=== PATIENT | male | born 1935 | race Caucasian/White ===

== ENCOUNTER 2017-12-10 12:26 | Emergency (ER) | payer MEDICARE, OTHER, SELFPAY ==
[2017-12-10 12:27] VITALS: BP 147/85; PULSE 76; RESP 16; TEMP 37.3; O2SAT 98; BMI 29.0
--- NOTE | 2017-12-10 12:42 | CT_ITS ---
STUDY: CT ABDOMEN AND PELVIS WITHOUT CONTRAST REASON FOR EXAM: Male, 82 years old. Abdominal wall hematoma/bruising. Right upper abdominal and right flank pain. Patient is on Coumadin. RADIATION DOSAGE (If Supplied By Facility): CTDIvol = ( 13.02 ) mGy, DLP = ( 725.19 ) mGycm TECHNIQUE: Transaxial images were obtained from the dome of the diaphragm to the symphysis pubis without oral contrast, and without intravenous contrast. Sagittal and coronal images were reconstructed. Individualized dose optimization techniques were used for this CT. COMPARISON: Comparison is made with prior study dated August 09, 2012. FINDINGS: Small bilateral pleural effusions. There is a stable 5.5 mm noncalcified nodule in the right lower lobe abutting the right hemidiaphragm. This most likely represents a granuloma. Cardiomegaly. Coronary artery calcification. Aortic valve prosthesis. Normal liver. Small gallstone along the dependent portion of the gallbladder lumen. There are multiple benign calcified granulomata of the spleen. Normal pancreas. Normal bilateral adrenal glands. Normal right kidney. Normal left kidney. Normal visualized stomach. Normal small intestine. There are multiple colonic diverticula consistent with diverticulosis. The appendix is visualized and appears normal. There is diffuse atherosclerotic calcification of the abdominal aorta and its major visceral branches. Stable minimal dilatation of the distal abdominal aorta. 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 Normal inferior vena cava. Normal retroperitoneum. The bladder is only partially filled. Mild degree of diffuse bladder wall thickening. There is enlargement of the prostate gland. It measures 4.7 cm x 5.2 cm. Calcifications are seen within it. There is evidence of diffuse subcutaneous congestion with overlying skin thickening. This may represent subcutaneous collection of blood with the patient's history of bruising. There are degenerative changes of the visualized lumbar spine. CT/Abdomen/Pelvis without Cont IMPRESSION: Small bilateral pleural effusions. Diffuse subcutaneous edematous changes as described. With the patient's history of abdominal wall bruising, this may represent subcutaneous blood pooling. Clinical correlation is recommended. Electronically Signed: Segundo Galvan MD at 13:42 EST Tel [phone], Service support ,
[2017-12-10 13:01] LABS: Absolute Lymphocyte Count 0.94 X10^3/ul (0.83-4.51); Absolute Neutrophil Count 4.4 X10^3/uL (2.0-7.7); Basophil# 0.02 X10^3/uL; Basophil% 0.3 % (0-1); Eosinophil# 0.18 X10^3/uL; Eosinophils% 2.9 % (0-5); Hematocrit 33.7 % (40-54); Hemoglobin 11.1 g/dl (13.0-16.5); Lymphocyte # 0.94 X10^3/ul (4.0); Lymphocyte % 15.3 % (19-41); Mean Corp Hgb Conc 32.9 g/gl (32-36); Mean Corpuscular Hgb 29.7 pg (27.0-32.0); Mean Corpuscular Volume 90.1 fL (80-94); Mean Platelet Vol. 9.1 fl (6.2-12.0); Monocyte# 0.64 X10^3/uL; Monocyte% 10.4 % (0-10); Neutrophil # 4.35 X10^3/uL (2.7-7.7); Neutrophil % 70.6 % (47-70); POSITIVE COUNT NO; POSITIVE DIFFERENTIAL NO; POSITIVE MORPHOLOGY NO; Platelet Count 215 K/mm3 (150-450); RBC Distribution Width CV 14.9 % (11.6-14.6); RBC Distribution Width SD 48.5 fl (35.1-43.9); Red Blood Count 3.74 M/mm3 (4.6-6.2); White Blood Count 6.2 K/mm3 (4.4-11.0)
[2017-12-10 13:11] LABS: International Normalized Ratio 2.5; Prothrombin Time (Protime)PT. 26.3 SECONDS (11.7-14.9)
[2017-12-10 13:14] LABS: Anion Gap 4 (5-15); BUN 11 mg/dL (7-18); Calcium,Total 7.7 mg/dL (8.5-10.1); Chloride 100 mmol/L (98-107); Creatinine, Serum 0.65 mg/dL (0.70-1.30); EST Glomerular Filtration Rate 126 mL/min (>60); Est Glom Filt Rate - Afr Amer 153 mL/min (>60); Estimated Creatinine Clearance 56.05 ml/min; Glucose 92 mg/dL (74-106); Potassium 4.5 mmol/L (3.5-5.1); Sodium Level 133 mmol/L (136-145)
--- NOTE | 2017-12-10 15:23 | ED.VISSUMM ---
- ER Visit Summary Date of Service: 12/10/17 Chief Complaint: [Discoloration to abdomen] History of Present Illness: The patient is a 82 M [resents to the emergency department with complaint of ecchymosis and bruising to his abdomen. Patient states that he is on Coumadin for history of an aortic artificial heart valve. Patient states last week his INR was elevate] to 3.7 and his Coumadin dose was decreased to 5 mg. Patient denies any abdominal pain. Patient denies feeling lightheaded or dizzy. Physical Examination: [HEENT-PERRLA, EOMI. Cranial nerves II through XII grossly intact. TMs clear. Mucous membranes moist. No adenopathy. Cardiovascular-regular rate and rhythm without murmur or ectopy Lungs-clear to auscultation, chest wall stable without crepitus or subcu emphysema Abdomen-normoactive bowel sounds, soft, nontender, no rebound or rigidity, no peritoneal signs. Patient has diffuse ecchymosis and bruising noted to the anterior abdomen into the right flank and right upper posterior chest. Extremities-intact ?4, normal range of motion, normal pulses, atraumatic] Test Results: [CBC with differential showed a white count of 6.2, hemoglobin 11, hematocrit 34, platelets 215. Chemistries were unremarkable. INR was 2.5. CT scan of the abdomen and pelvis showed skin thickening in the subcutaneous region of the abdomen consistent with blood within the subcutaneous tissues. No discrete hematoma noted.] Emergency Department Course and Treatment: [Patient had a cyst discussed with his primary care physician Dr. Polo Mitchell will follow up patient in the office next week.] Treatment Plan: [Follow-up with Dr. Mitchell for repeat H&H and INR.] Disposition: [Discharged to home in stable condition] Impression: [Abdominal wall hematoma Coumadin coagulopathy] This note was generated with [employer] dictation software. It may contain incorrect words, spelling, and punctuation that were not noted in review of the chart prior to signing ED Disposition - Plan for ED Patient: Chief Complaint: Abd Pain Referrals: Polo Mitchell MD [Primary Care Provider] -
--- NOTE | 2017-12-10 15:27 | ED.DCSUM_ITS ---
- ER Visit Summary Date of Service: 12/10/17 Chief Complaint: [Discoloration to abdomen] History of Present Illness: The patient is a 82 M [resents to the emergency department with complaint of ecchymosis and bruising to his abdomen. Patient states that he is on Coumadin for history of an aortic artificial heart valve. Patient states last week his INR was elevate] to 3.7 and his Coumadin dose was decreased to 5 mg. Patient denies any abdominal pain. Patient denies feeling lightheaded or dizzy. Physical Examination: [HEENT-PERRLA, EOMI. Cranial nerves II through XII grossly intact. TMs clear. Mucous membranes moist. No adenopathy. Cardiovascular-regular rate and rhythm without murmur or ectopy Lungs-clear to auscultation, chest wall stable without crepitus or subcu emphysema Abdomen-normoactive bowel sounds, soft, nontender, no rebound or rigidity, no peritoneal signs. Patient has diffuse ecchymosis and bruising noted to the anterior abdomen into the right flank and right upper posterior chest. Extremities-intact ?4, normal range of motion, normal pulses, atraumatic] Test Results: [CBC with differential showed a white count of 6.2, hemoglobin 11 , hematocrit 34, platelets 215. Chemistries were unremarkable. INR was 2.5. CT scan of the abdomen and pelvis showed skin thickening in the subcutaneous region of the abdomen consistent with blood within the subcutaneous tissues. No discrete hematoma noted.] Emergency Department Course and Treatment: [Patient had a cyst discussed with his primary care physician Dr. Polo Mitchell will follow up patient in the office next week.] Treatment Plan: [Follow-up with Dr. Mitchell for repeat H&H and INR.] Disposition: [Discharged to home in stable condition] Impression: [Abdominal wall hematoma Coumadin coagulopathy] This note was generated with [employer] dictation software. It may contain incorrect words, spelling, and punctuation that were not noted in review of the chart prior to signing ED Disposition - Plan for ED Patient: Chief Complaint: Abd Pain Referrals: Polo Mitchell MD [Primary Care Provider] -
--- NOTE | 2017-12-10 15:27 | ED.DEP ---
ED Disposition - Plan for ED Patient: Chief Complaint: Abd Pain Instructions: ED Hematoma Referrals: Polo Mitchell MD [Primary Care Provider] - 3-5 Days
[2017-12-10 15:33] VITALS: BP 127/82; PULSE 61; RESP 15; O2SAT 98
== END 2017-12-10 15:34 | disposition home or self-care (01) ==
PROVIDERS: Emergency Provider Emergency Medicine; Family Provider Internal Medicine; PCP Internal Medicine
DX: R23.3 Spontaneous ecchymoses (principal); T45.515A Adverse effect of anticoagulants, initial encounter; Y92.9 Unspecified place or not applicable; I25.10 Atherosclerotic heart disease of native coronary artery without angina pectoris; I10 Essential (primary) hypertension; Z95.2 Presence of prosthetic heart valve; Z95.1 Presence of aortocoronary bypass graft; Z79.82 Long term (current) use of aspirin; Z79.01 Long term (current) use of anticoagulants; Z79.02 Long term (current) use of antithrombotics/antiplatelets; Z79.899 Other long term (current) drug therapy
CPT/HCPCS: 74176; 80048; 85025; 85610; 99283; A4216

== ENCOUNTER 2017-12-24 16:03 | Inpatient (IN) | payer MEDICARE, OTHER, SELFPAY ==
[2017-12-24] VITALS (13 sets, daily range): BP systolic 105–159; BP diastolic 69–87; PULSE 71–118; RESP 20–24; TEMP 35.8–36.6; O2SAT 93–100; BMI 27.3; BMI 27.4; BMI 28.4
--- NOTE | 2017-12-24 16:40 | EKG12_ITS ---
Test Reason : SOB Blood Pressure : / mmHG Vent. Rate : 082 BPM Atrial Rate : 340 BPM P-R Int : 000 ms QRS Dur : 118 ms QT Int : 398 ms P-R-T Axes : 000 -33 120 degrees QTc Int : 464 ms Atrial fibrillation Left axis deviation Abnormal ECG Confirmed by REID RAMEY ([id number]), commercial production editor DAMEON RIVERO ([id number]) on 12/28/2017 1:36:51 PM Referred By: GEOVANNI Confirmed By:REID RAMEY
--- NOTE | 2017-12-24 16:48 | RAD_ITS ---
STUDY: X-RAY CHEST REASON FOR EXAM: Male, 82 years old. Cough. Shortness of breath. TECHNIQUE: Single AP portable view of the chest. COMPARISON: January 29, 2016 FINDINGS: There are monitoring devices. There is interstitial accentuation of the lungs. Right lower lung airspace opacities. Small bilateral pleural effusions. There are granulomatous calcifications. Sternal cerclage wires are present from a prior sternotomy. Aortic valve prosthesis. Cardiac enlargement. Normal mediastinum and tian. Normal visualized pulmonary arteries. There is atherosclerotic calcification of the aortic arch with tortuosity. There is demineralization of the osseous structures. Normal visualized ribs, clavicles, and shoulders. There is no demonstrated abnormality of the visualized soft tissue structures of the upper abdomen. RAD/Chest 1 View (Portable) IMPRESSION: Right lower lung infiltrate or edema. Bilateral pleural effusions. Cardiac enlargement. Electronically Signed: Yonis Dejesus MD at 17:23 EST , Service support ,
--- NOTE | 2017-12-24 17:11 | ED.DCSUM_ITS ---
- ER Visit Summary Date of Service: 12/24/17 Chief Complaint: Wheezing History of Present Illness: The patient is a 82 M with wheezing which has been worsening over the past month. He was referred to the emergency department for possible CHF exacerbation. He has a history of coronary disease, [place], CHF, asthma, hypertension, hyperlipidemia, and atrial fibrillation. He said his INR has been elevated. He did pass a clot in his urine but it has cleared. He has also had bruising to his abdominal wall for the past several weeks. He says that he has no abdominal pain or blood in his stool. No headaches. No joint pains that are new. Physical Examination: Afebrile and vital signs unremarkable except for a blood pressure of 159/72 and a heart rate of 118. The patient is sitting upright. Breathing quietly. HEENT exam unremarkable. Lungs show wheezing throughout all lynch. Abdomen soft and nontender. He does have ecchymosis over most of his anterior abdominal wall. Extremities show symmetric bilateral pitting edema. He is alert and oriented and mentating appropriately. Test Results: EKG on the labs, chest x-ray, urinalysis pending. Emergency Department Course and Treatment: Patient was treated with oxygen and aerosols while awaiting results. EKG showed atrial fibrillation a rate of 82. Hemoglobin 10.1. Sodium 130, chloride 97, INR 3.5. Urinalysis pending. BNP pending. Troponin normal. Chest x-ray showed edema versus infiltrate on the right with bilateral effusions and an enlarged cardiac silhouette. Patient received oxygen, aerosols, Solu-Medrol, and Lasix while awaiting his results. Patient has remained stable. Will need continued inpatient care for his multiple medical issues. Hospitalist was contacted. Treatment Plan: As above Disposition: Admission Impression: 1. CHF 2. Elevated INR This note was generated with [employer] dictation software. It may contain incorrect words, spelling, and punctuation that were not noted in review of the chart prior to signing ED Disposition - Plan for ED Patient: Chief Complaint: Shortness of Breath Referrals: Polo Mitchell MD [Primary Care Provider] -
[2017-12-24 17:14] LABS: Prothrombin Time (Protime)PT. 35.2 SECONDS (11.7-14.9)
[2017-12-24] MEDS: Albuterol 2.5 MG/3 ML VIAL.NEB. INHALATION ×3 (17:18→18:16)
[2017-12-24] MEDS: Ipratropium/Albuterol Sulfate 3 ML AMPUL.NEB INHALATION (17:18)
[2017-12-24 17:22] LABS: Absolute Lymphocyte Count 0.54 X10^3/ul (0.83-4.51); Absolute Neutrophil Count 4.8 X10^3/uL (2.0-7.7); Basophil# 0.01 X10^3/uL; Basophil% 0.2 % (0-1); Eosinophil# 0.42 X10^3/uL; Eosinophils% 6.6 % (0-5); Hematocrit 30.6 % (40-54); Hemoglobin 10.1 g/dl (13.0-16.5); Lymphocyte # 0.54 X10^3/ul (4.0); Lymphocyte % 8.5 % (19-41); Mean Corpuscular Hgb 29.3 pg (27.0-32.0); Mean Corpuscular Volume 88.7 fL (80-94); Mean Platelet Vol. 9.1 fl (6.2-12.0); Monocyte# 0.58 X10^3/uL; Monocyte% 9.1 % (0-10); Neutrophil # 4.77 X10^3/uL (2.7-7.7); Neutrophil % 75.3 % (47-70); Platelet Count 264 K/mm3 (150-450); RBC Distribution Width CV 14.8 % (11.6-14.6); RBC Distribution Width SD 48.3 fl (35.1-43.9); Red Blood Count 3.45 M/mm3 (4.6-6.2); White Blood Count 6.3 K/mm3 (4.4-11.0)
[2017-12-24 17:23] LABS: Anion Gap 4 (5-15); BUN 9 mg/dL (7-18); BUN/Creat Ratio 15.5 RATIO (10-20); Calcium,Total 7.6 mg/dL (8.5-10.1); Chloride 97 mmol/L (98-107); Creatinine, Serum 0.58 mg/dL (0.70-1.30); EST Glomerular Filtration Rate 143 mL/min (>60); Est Glom Filt Rate - Afr Amer 173 mL/min (>60); Estimated Creatinine Clearance 56.05 ml/min; Glucose 99 mg/dL (74-106); Potassium 4.9 mmol/L (3.5-5.1); Sodium Level 130 mmol/L (136-145)
[2017-12-24 17:37] LABS: International Normalized Ratio 3.5
[2017-12-24 17:39] LABS: Differential Indicated SCAN CRITERIA MET; POSITIVE COUNT NO; POSITIVE DIFFERENTIAL YES; POSITIVE MORPHOLOGY NO
[2017-12-24 17:48] LABS: Bacteria 0 SEEN /hpf (None Seen); Mucous, Urine 0 SEEN /hpf (<or=2+); Squamous Epithelial Cells - UA 0 SEEN /hpf (0-5); White Blood Cells 0 SEEN /hpf (0-5)
[2017-12-24 17:55] LABS: Anisocytosis RARE; Platelet Estimate ADEQUATE (ADEQ)
[2017-12-24 17:56] LABS: Acanthocytes RARE; Ovalocyte RARE
[2017-12-24 18:05] LABS: Color, Urine Yellow (Yellow); Glucose, Dipstick Normal (Normal); Ketone-Dipstick Negative (Negative); Leukocyte Esterase-Dipstick Negative /ul (Negative); Nitrite-Dipstick Negative (Negative); Occult Blood-Urine 10 /ul (Negative); Protein-Dipstick Negative (Negative); Urine Bilirubin Dipstick Negative (Negative); Urine Clarity Clear (Clear); Urine Urobilinogen 4 mg/dl (Normal)
--- NOTE | 2017-12-24 18:10 | PCM.HP.STD ---
Problem List (1) CHF (congestive heart failure) Status: Acute (2) Afib Status: Chronic (3) Aortic stenosis Status: Chronic (4) Hyponatremia Status: Chronic (5) CAD (coronary artery disease) Status: Chronic (6) Pulmonary HTN Status: Chronic (7) Aortic aneurysm Status: Chronic History of Present Illness Date of Admission: 12/24/17 Chief Complaint: SOB The patient is a 82 year old M who presented to the ER with SOB for about a month but worse in the past several days. He has a hx of CHF, CAD s/p CABG, pulmonary HTN, aortic stenosis s/p TAVR, and chronic AF, and a questionable asthma hx. He has been wheezy at home with a nonproductive cough. He has swelling of his BLE, he does not think this is much worse than his normal. He was taken off HCTZ about 1 month ago and is on no other diuretics, and has not been urinating as much. He is SOB with both rest and exertion. Initially he was tachy in the ER but this resolved without additional intervention. He has no CP. He is currently on 2 lpm O2, he does not use any at home. He follows Dr. Olivares as an outpatient. He had an echo in 2016 prior to his TAVR procedure and an EF of 50% at that time. He states he does not have his aortic aneurysm checked routinely. He denies PND and orthopnea. He also reported a blood clot in his urine. Had an episode of nausea and vomiting in the ER. He denies trauma to his chest / abdomen. Bruising has been present for abotu 1 month. [] Past Medical History Past Medical History (Chronic Problems): Chronic Problems Afib (Chronic) Aortic stenosis (Chronic) Hyponatremia (Chronic) CAD (coronary artery disease) (Chronic) Pulmonary HTN (Chronic) Aortic aneurysm (Chronic) Allergies No Known Allergies Allergy (Verified 12/24/17 16:05) Home Medications: Ambulatory Orders Medication Instructions Recorded Doxazosin Mesylate [Cardura] 4 mg PO QHS 08/14/13 Metoprolol Tartrate [Lopressor] 50 mg PO BID 08/14/13 Atorvastatin Calcium [Lipitor] 20 mg PO QHS 10/21/15 Clopidogrel Bisulfate [Plavix] 75 mg PO DAILY 10/18/17 Aspirin [Aspirin, Baby] 81 mg PO DAILY@0800 12/10/17 Warfarin Sodium [Warfarin Sodium] 5 mg PO DAILY 12/24/17 Surgical History: coronary bypass surgery Psychiatric History: No pertinent psych hx Lives: Alone Smoking Status: Former smoker Tobacco Use: Non-smoker Alcohol: Rare Drugs: None - *Family History Maternal History Items: Cancer Paternal History Items: - - aortic aneurysm Review of Systems Constitutional: Denies: Chills, Fever, Weight Change HEENT: Denies: Head Aches, Sinus Congestion, Sinus Drainage Cardiovascular: Reports: Edema. Denies: Chest Pain, Chest Pressure, Heaviness, Light Headedness, Orthopnea, Palpitations, Paroxysmal Noc. Dyspnea, Syncope Respiratory: Reports: Cough, Shortness of Breath, Shortness of breath at rest, Shortness of breath upon exertion, Wheezing. Denies: Sputum production Gastrointestinal: Denies: Abdominal Pain, Nausea, Vomiting Genitourinary: Reports: Hematuria. Denies: Dysuria Musculoskeletal: Denies: Joint Pain, Joint Tenderness Skin: Reports: - - hematoma. Denies: Rash, Wounds Neurological: Denies: Numbness, Tingling, Focal weakness Psychiatric: Denies: Anxiety, Depression, Homicidal Ideations, Suicidal Ideations Hematologic/ Lymphatic: Denies: Easy Bruising, Easy Bleeding VTE Information - Inpt Only VTE Present on Admission: No VTE Mechan Device Prophylaxis: None VTE Pharm Prophylaxis ordered?: No Reason prophylaxis not ordered:: Medical Contraindication Patient Problems: Active and Suspected Problems CHF (congestive heart failure) (Acute) - Physical Exam General: Alert, Oriented x3, Cooperative HEENT: Atraumatic, PERRLA, EOMI, Normocephalic Neck: Supple, No JVD, Negative Carotid Bruits Lungs: Rales, Wheezes Cardiovascular: No murmurs, Irregular Rate Abdomen: Bowel Sounds Present, Soft, Non Tender, - Extremities: No edema, Capillary Refill Less than 3 Seconds Skin: No rashes, No breakdown, - - hematoma on chest extending to the abdomen. There is scarring from shingles on his back. Musculoskeletal: No Tenderness to Palpation of Joints or Extremities Neurological: Cranial nerves II-XII grossly intact Psych/Mental Status: Normal Affect, Appropriate, Alert and oriented to time, place, person, mood and affect Vital Signs Temp Pulse Resp BP Pulse Ox 97.2 F L 77 24 H 136/74 H 100 12/24/17 16:05 12/24/17 17:21 12/24/17 17:21 12/24/17 16:18 12/24/17 16:18 Oxygen Flow Rate (L/min) 2 Oxygen Delivery Method Nasal Cannula Weight: 81.647 kg Body Mass Index (BMI) 27.3 Laboratory Tests Past 24 Hrs 12/24/17 12/24/17 12/24/17 16:30 16:30 16:30 WBC 6.3 RBC 3.45 L Hgb 10.1 L Hct 30.6 L MCV 88.7 MCH 29.3 MCHC 33.0 RDW 14.8 H RDW Differential 48.3 H Plt Count 264 MPV 9.1 Immature Gran % (Auto) 0.300 Neut % (Auto) 75.3 H Lymph % (Auto) 8.5 L [place] % (Auto) 9.1 Eos % (Auto) 6.6 H Baso % (Auto) 0.2 Absolute Neuts (auto) 4.8 Absolute Lymphs (auto) 0.54 L Total Counted Not Reportable Differential Comment SEE COMMENT Platelet Estimate ADEQUATE Anisocytosis RARE Ovalocytes RARE Acanthocytes (Spur) RARE PT 35.2 H INR 3.5 H* Sodium 130 L Potassium 4.9 Chloride 97 L Carbon Dioxide 29.0 Anion Gap 4 L BUN 9 Creatinine 0.58 L Estim Creat Clear Calc 56.05 Est GFR (MDRD) Af Amer 173 Est GFR (MDRD) Non-Af 143 BUN/Creatinine Ratio 15.5 Glucose 99 Calcium 7.6 L Troponin I < 0.02 B-Natriuretic Peptide Urine Color Urine Clarity Urine pH Ur Specific [place] Urine Protein Urine Glucose (UA) Urine Ketones Urine Occult Blood Urine Nitrite Urine Bilirubin Urine Urobilinogen Ur Leukocyte Esterase Urine RBC Urine WBC Ur Squamous Epith Cells Urine Bacteria Urine Mucus 12/24/17 12/24/17 16:30 17:41 WBC RBC Hgb Hct MCV MCH MCHC RDW RDW Differential Plt Count MPV Immature Gran % (Auto) Neut % (Auto) Lymph % (Auto) [place] % (Auto) Eos % (Auto) Baso % (Auto) Absolute Neuts (auto) Absolute Lymphs (auto) Total Counted Differential Comment Platelet Estimate Anisocytosis Ovalocytes Acanthocytes (Spur) PT INR Sodium Potassium Chloride Carbon Dioxide Anion Gap BUN Creatinine Estim Creat Clear Calc Est GFR (MDRD) Af Amer Est GFR (MDRD) Non-Af BUN/Creatinine Ratio Glucose Calcium Troponin I B-Natriuretic Peptide Pending Urine Color Pending Urine Clarity Pending Urine pH Pending Ur Specific [place] Pending Urine Protein Pending Urine Glucose (UA) Pending Urine Ketones Pending Urine Occult Blood Pending Urine Nitrite Pending Urine Bilirubin Pending Urine Urobilinogen Pending Ur Leukocyte Esterase Pending Urine RBC Pending Urine WBC Pending Ur Squamous Epith Cells Pending Urine Bacteria Pending Urine Mucus Pending Assessment/Plan Active and Suspected Problems CHF (congestive heart failure) (Acute) 1. Acute diastolic CHF exacerbation - CXR c/w CHF, prior hx, more SOB since being off HCTZ. Crackles and wheezing on exam. Prior echo in 2016 with EF 50%. Repeat Echo. Pt will be placed on Lasix 40 q 8. Continue BB. Not currently on Sean-I. EKG with AF. Trop neg. Repeat CXR in AM. 2. Chronic AF - inr supratherapeutic at 3.5. Hold. Continue AF. 3. Anemia, normocytic with Hematuria with blood on UA - holding warfarin. It is unclear why he is on aspirin, plavix, and coumadin. Also atraumatic hematoma on the chest and abdomen. Trend Hgb. Former smoker. 4. CAD - hx of 4 vessel CABG. Continue home meds -asa/statin/plavix/metoprolol 5. - s/p tavr 6. Hx abdominal aortic aneurysm 7. HTN - mildly elevated in ER - trend 8. Prior CVA ~15 years ago 9. Former smoker - smoked 25 years. 10. Chronic hyponatremia - HCTZ dc'd for this by PCP. DVT ppx: supratherapeutic INR This patient was seen by Nik Westfall PA-C under the supervision of Dr. Avina.
[2017-12-24] MEDS: MethylPREDNISolone 125 MG/2 ML Vial IV (18:17)
[2017-12-24] MEDS: Furosemide 40 MG/4 ML Vial IV ×2 (18:17→22:00)
[2017-12-24 18:35] LABS: Red Blood Cells-Urine 0-5 SEEN /hpf (0-5)
[2017-12-24 18:58] LABS: BNP,B-Type NATRIURETIC PEPTIDE 488.9 pg/mL (0-100)
[2017-12-24] MEDS: Doxazosin 4 MG Tablet PO (22:00)
[2017-12-24] MEDS: Atorvastatin Calcium 20 MG Tablet PO (22:00)
[2017-12-24] MEDS: Metoprolol Tartrate 50 MG Tablet PO (22:00)
[2017-12-24] MEDS: 0.9% NaCl Peripheral Flush Adult/Peds IV (22:08)
[2017-12-25] VITALS (17 sets, daily range): BP systolic 79–101; BP diastolic 42–64; PULSE 62–85; RESP 18–22; TEMP 35.9–36.9; O2SAT 94–99
[2017-12-25] MEDS: 0.9% NaCl Peripheral Flush Adult/Peds IV ×2 (05:45→17:42)
[2017-12-25] MEDS: Furosemide 40 MG/4 ML Vial IV (05:45)
[2017-12-25 05:55] LABS: BUN 9 mg/dL (7-18); EST Glomerular Filtration Rate 137 mL/min (>60); Estimated Creatinine Clearance 56.05 ml/min; Glucose 143 mg/dL (74-106)
--- NOTE | 2017-12-25 05:55 | ECHOD_ITS ---
Reason For Study: AFIB/Flutter Procedure This was a 2D Doppler, Color Flow transthoracic echocardiogram. The study was technically difficult. Exam performed portable in patient room. Left Ventricle Normal LV size. Left ventricular systolic function is normal. The estimated ejection fraction is 55 %. Unable to assess diastolic dysfunction. No regional wall motion abnormalities noted. Right Ventricle Normal RV size. Normal systolic function. Atria The left atrium is severely enlarged. The right atrium is moderately enlarged. Probable chiari network. Mitral Valve Normal mitral valve. Mild (1+) eccentric mitral valve insufficiency. Tricuspid Valve Normal tricuspid valve. Mild to moderate (1-2+) tricuspid valve insufficiency. Pulmonary artery systolic pressure is 43 mmHg. Aortic Valve Stable appearing bioprosthetic aortic valve apparatus. Pulmonic Valve Normal pulmonic valve. Mild (1+) pulmonic valve insufficiency. Great Vessels Normal aortic root. The pulmonary artery is normal size. Normal inferior vena cava. Pericardium/Pleural No pericardial effusion. MMode/2D Measurements & Calculations LVIDd: 5.0 cm IVSd: 1.6 cm Ao root diam: 2.4 cm LVIDs: 3.7 cm LVPWd: 0.76 cm FS: 25.5 % LAV(MOD-bp): 140.9 ml LA A4 area: 37.5 cm2 RA A4 area: 29.2 cm2 LAV(MOD-bp) Indexed: 71.1 ml/m2 LAV(MOD-sp2): 132.9 ml LAV(MOD-sp4): 140.0 ml Doppler Measurements & Calculations MV E max jason: 109.3 cm/sec Lat Peak E' Jason: 10.5 cm/sec Med Peak E' Jason: 5.7 cm/sec E/E' lat: 10.4 E/E' med: 19.2 Ao V2 max: 169.2 cm/sec LV V1 max: 98.4 cm/sec PA V2 max: 107.7 cm/sec Ao max P.5 mmHg LV V1 max P.9 mmHg Ao V2 mean: 114.7 cm/sec LV V1 mean P.9 mmHg Ao mean P.8 mmHg LV V1 mean: 65.1 cm/sec Ao V2 VTI: 34.7 cm LV V1 VTI: 20.3 cm PI end-d jason: 109.8 cm/sec TR max jason: 311.0 cm/sec TR max P.8 mmHg Interpretation Summary Normal LV size. Left ventricular systolic function is normal. The estimated ejection fraction is 55 %. Unable to assess diastolic dysfunction. Mild to moderate (1-2+) tricuspid valve insufficiency. Stable appearing bioprosthetic aortic valve apparatus. Compared to the previous the WMA has improved and ther is a bioprothetic aortic valve Ordering Physician: Lionel Avina Referring Physician: Polo Mitchell Performed By: Negin Bryan RDCS, RVT
[2017-12-25 05:56] LABS: Anion Gap 6 (5-15); Calcium,Total 7.7 mg/dL (8.5-10.1); Chloride 94 mmol/L (98-107); Est Glom Filt Rate - Afr Amer 165 mL/min (>60); Sodium Level 129 mmol/L (136-145)
[2017-12-25 06:00] LABS: International Normalized Ratio 2.9; Prothrombin Time (Protime)PT. 30.6 SECONDS (11.7-14.9)
[2017-12-25] MEDS: Clopidogrel Bisulfate 75 MG Tablet PO (08:36)
[2017-12-25] MEDS: Aspirin 81 MG TAB.CHEW PO (08:36)
--- NOTE | 2017-12-25 11:09 | CASEMGMT ---
Addendum entered by Andrea Bolton 12/25/17 12:19: [facility], signed [facility]. [facility] updated that [facility]. Will not notify [place] of pt admission as pt does not wish to transfer. Recommend DC summary be faxed to his PCP, [facility]. Original Note: See RN CM assessment. Pt states he is independent @ home, drives. Will continue to follow and assist with dc planning. -May benefit from Home health on dc. Nguyễn MARTÍNEZN RN ACM
--- NOTE | 2017-12-25 16:08 | PCM.PN.HOSP ---
Patient Problems: Active and Suspected Problems CHF (congestive heart failure) (Acute) Subjective: CC: Shortness of breath This is an an 82-year-old male with shortness of breath, his CXR is consistent with congestive heart failure, he was placed on IV Lasix and he improved but he is now hypotensive. He reports no cough, fever chills or chest pain. Vitals/I&O's: Vital Signs Temp Pulse Resp BP Pulse Ox 98.2 F 78 20 H 97/48 L 97 12/25/17 14:17 12/25/17 15:05 12/25/17 14:17 12/25/17 14:17 12/25/17 14:17 Oxygen Flow Rate (L/min) 3 Oxygen Delivery Method Nasal Cannula Weight: 82 kg Body Mass Index (BMI) 28.4 Intake and Output for Last 24 Hours 12/23/17 12/24/17 12/25/17 23:59 23:59 23:59 Intake Total 100 / 100 400 / 400 Output Total 2300 / 2300 1750 / 1750 Balance -2200 / -2200 -1350 / -1350 General: Alert, Oriented x3 HEENT: Atraumatic Oral: Moist Mucosa Neck: Supple, No JVD Lungs: Clear to auscultation Cardiovascular: Regular rate, Normal S1, Normal S2, No Ectopic Activity Abdomen: Bowel Sounds Present, Soft Extremities: No edema Neurological: Cranial nerves II-XII grossly intact, Deep Tendon Reflexes 2+/4 and Symmetrical, Motor Exam 5/5 strength throughout Laboratory Results 12/25/17 05:08: Sodium 129 L, Potassium 5.0, Chloride 94 L, Carbon Dioxide 29.0, Anion Gap 6, BUN 9, Creatinine 0.60 L, Estim Creat Clear Calc 56.05, Est GFR (MDRD) Af Amer 165, Est GFR (MDRD) Non-Af 137, BUN/Creatinine Ratio 15.0, Glucose 143 H, Calcium 7.7 L 12/25/17 05:08: PT 30.6 H, INR 2.9 Current Medications Acetaminophen (Tylenol) 650 mg PO Q6H PRN PRN PRN Reason: Mild Pain (1-3)/Temp > 100.7 F Aspirin (Aspirin, Baby) 81 mg PO DAILY@0800 ANGELO Last Admin: 12/25/17 08:36 Dose: 81 mg Atorvastatin Calcium (Lipitor) 20 mg PO QHS [facility] Last Admin: 12/24/17 22:00 Dose: 20 mg Clopidogrel Bisulfate (Plavix) 75 mg PO DAILY [facility] Last Admin: 12/25/17 08:36 Dose: 75 mg Doxazosin Mesylate (Cardura) 4 mg PO QHS [facility] Last Admin: 12/24/17 22:00 Dose: 4 mg Furosemide (Lasix) 40 mg IV Q8 [facility] Last Admin: 12/25/17 14:26 Dose: Not Given Metoprolol Tartrate (Lopressor (Beta Elslie)) 50 mg PO BID [facility] Last Admin: 12/25/17 11:55 Dose: Not Given Ondansetron HCl (Zofran) 4 mg IV Q6H PRN PRN PRN Reason: NAUSEA/VOMITING Potassium Chloride (K-Dur) 20 meq PO BIDCM [facility] Last Admin: 12/25/17 08:36 Dose: 20 meq Sodium Chloride () 5 - 30 ml IV UD PRN PRN Reason: SALINE FLUSH Last Admin: 12/25/17 05:45 Dose: 10 ml Assessment/Plan Active and Suspected Problems CHF (congestive heart failure) (Acute) 1. Acute CHF with preserved left ventricular function; he is receiving IV Lasix. 2. Hypotension; from IV diuresis, will change Lasix p.o, we will decrease his beta-leslie dose. 3. Chronic Atrial fibrillation; we will resume his Coumadin. 3. Anemia, normocytic with Hematuria ; 4. CAD s/p CABG; he currently reports no symptoms of angina. We will continue all his cardio protective medications. 5. History of aortic stenosis s/p TAVR. 6. history abdominal aortic aneurysm; stable. 7. Old CVA ; his Plavix and Aspirin will help with secondary stroke prevention. Code Visit Inpatient E&M: 88873 Subs Hosp L2
[2017-12-25] MEDS: Atorvastatin Calcium 20 MG Tablet PO (20:59)
[2017-12-26] VITALS (7 sets, daily range): BP systolic 99–108; BP diastolic 48–67; PULSE 66–83; RESP 16–18; TEMP 36.5–36.8; O2SAT 94–97
[2017-12-26] MEDS: Acetaminophen 325 MG Tablet 650 MG PO (02:45)
[2017-12-26] MEDS: Aspirin 81 MG TAB.CHEW PO (09:41)
[2017-12-26] MEDS: Furosemide 40 MG Tablet PO (09:41)
[2017-12-26] MEDS: Clopidogrel Bisulfate 75 MG Tablet PO (09:42)
[2017-12-26 13:12] LABS: Anion Gap 6 (5-15); BUN 21 mg/dL (7-18); BUN/Creat Ratio 32.7 RATIO (10-20); Calcium,Total 7.8 mg/dL (8.5-10.1); Chloride 97 mmol/L (98-107); Creatinine, Serum 0.64 mg/dL (0.70-1.30); EST Glomerular Filtration Rate 127 mL/min (>60); Est Glom Filt Rate - Afr Amer 154 mL/min (>60); Estimated Creatinine Clearance 56.05 ml/min; Glucose 97 mg/dL (74-106); Potassium 4.9 mmol/L (3.5-5.1); Sodium Level 134 mmol/L (136-145)
--- NOTE | 2017-12-26 13:45 | PCM.DC ---
- Discharge Diagnoses Current Active Problems: Current Active and Chronic Problems Afib (Chronic) CHF (congestive heart failure) (Acute) Aortic stenosis (Chronic) Hyponatremia (Chronic) CAD (coronary artery disease) (Chronic) Pulmonary HTN (Chronic) Aortic aneurysm (Chronic) You will use the following diet at home:: No restrictions Your food should be the consistency of: Regular Your liquids should be the consistency of: Regular/Thin Discharge Activity: Return to Normal Activity Weight Bearing Status: Full weight bearing Allergies/Adverse Reactions: Allergies No Known Allergies Allergy (Verified 12/24/17 16:05) Medications to take at Discharge Doxazosin Mesylate [Cardura] 4 mg PO QHS 08/14/13 Metoprolol Tartrate [Lopressor (beta hollie)] 50 mg PO BID 08/14/13 Atorvastatin Calcium [Lipitor] 20 mg PO QHS 10/21/15 Clopidogrel Bisulfate [Plavix] 75 mg PO DAILY 10/18/17 Aspirin [Aspirin, Baby] 81 mg PO QHS 12/10/17 Furosemide [Lasix] 40 mg PO DAILY #30 tab 12/26/17 Potassium Chloride 20 meq PO DAILY #60 tablet.er 12/26/17 Warfarin Sodium 2.5 mg PO DAILY #1 tablet 12/26/17 The following prescriptions were given: Furosemide [Lasix] 40 mg PO DAILY #30 tab Potassium Chloride 20 meq PO DAILY #60 tablet.er Warfarin Sodium 2.5 mg PO DAILY #1 tablet Primary Care Physician: Polo Mitchell MD [Primary Care Provider] - Please follow up with your Primary Care Physician in: ON 12/29/17, HAVE YOUR INR CHECKED
--- NOTE | 2017-12-27 11:52 | DS.PCM_ITS ---
Discharge Date and Diagnosis Date of Admission: 12/24/17 Date of Discharge: 12/26/17 - Primary Discharge Diagnosis #1 acute on chronic diastolic congestive heart failure-EF 55% #2 pulmonary hypertension #3 coagulopathy secondary to Coumadin usage #4 coronary artery disease #5 hyponatremia - Secondary Discharge Diagnosis Chronic Problems Afib (Chronic) Aortic stenosis (Chronic) Hyponatremia (Chronic) CAD (coronary artery disease) (Chronic) Pulmonary HTN (Chronic) Aortic aneurysm (Chronic) Hospital Course and Treatment Operations: None Procedures: 2-D Echocardiogram Summary of Care Provided: The patient is a 82 year old M seen in the emergency room at [facility] with chief complaint of shortness of breath. He was sent in from his PCPs office for evaluation in the emergency room for possible CHF. Patient stated that for the last month he had been increasingly short of breath. Approximately a month ago, patient was taken off a diuretic due to concerns of his low sodium. Workup in the emergency room included a chest x-ray which showed bilateral pleural effusions which were not severe, there is also noted to be an area of either infiltrate or more likely atelectasis at the right lung base. Beta natruretic peptide was elevated at 488, INR was elevated to 3.5, sodium was 130. Patient was admitted for acute on chronic diastolic congestive heart failure as his past echocardiogram showed an intermediate ejection fraction of 50%. Past echocardiogram and also shown pulmonary hypertension. Patient was placed on IV Lasix, he was monitored on telemetry, and underwent an echocardiogram which showed an ejection fraction 55% with mild pulmonary hypertension. Patient improved during his hospital stay, on 12/26/17, patient was seen and examined and felt to be in stable condition for discharge home. Further note, patient's INR was elevated and his Coumadin was held for his 3 day hospitalization, at the time of discharge, his INR was 2.9 and he was instructed to go back on Coumadin only at 2.5 mg daily and get his INR checked early the following week. Patient also had some hematuria on admission, this did not recur during his admission and he was instructed to have a recheck on his urine by his PCP. Discharge Activity: Return to Normal Activity Weight Bearing Status: Full weight bearing Home Medications: Medications to take at Discharge Doxazosin Mesylate [Cardura] 4 mg PO QHS 08/14/13 Metoprolol Tartrate [Lopressor (beta hollie)] 50 mg PO BID 08/14/13 Atorvastatin Calcium [Lipitor] 20 mg PO QHS 10/21/15 Clopidogrel Bisulfate [Plavix] 75 mg PO DAILY 10/18/17 Aspirin [Aspirin, Baby] 81 mg PO QHS 12/10/17 Furosemide [Lasix] 40 mg PO DAILY #30 tab 12/26/17 Potassium Chloride 20 meq PO DAILY #60 tablet.er 12/26/17 Warfarin Sodium 2.5 mg PO DAILY #1 tablet 12/26/17 Following Prescrptions Were Given to Patient: Furosemide [Lasix] 40 mg PO DAILY #30 tab Potassium Chloride 20 meq PO DAILY #60 tablet.er Warfarin Sodium 2.5 mg PO DAILY #1 tablet Primary Care Physician: Polo Mitchell MD [Primary Care Provider] - Please follow up with your Primary Care Physician in: ON 12/29/17, HAVE YOUR INR CHECKED Please Follow Up With: Polo Mitchell MD Disposition: Home Minutes spent on discharge:: 36 Patient Condition:: Stable Meaningful Use Info Meaningful Use Diagnoses (Choose all that apply): CHF - CHF TRIP/ARB ordered at discharge?: No Reason TRIP/ARB not ordered?: Allergy - normal EF-not indicated Documented LVEF (%): 34 Code Visit Inpatient E&M: 63532 Disch Hosp
== END 2017-12-26 14:58 | disposition home or self-care (01) | DRG 292 ==
LOC: ED 16:56 → PCU 18:29
PROVIDERS: Admitting Provider Internal Medicine; Emergency Provider Emergency Medicine; Family Provider Internal Medicine; PCP Internal Medicine; Visit Provider Internal Medicine
DX: I50.33 Acute on chronic diastolic (congestive) heart failure (principal); E87.1 Hypo-osmolality and hyponatremia; D68.32 Hemorrhagic disorder due to extrinsic circulating anticoagulants; I27.20 Pulmonary hypertension, unspecified; I48.2 Chronic atrial fibrillation; I25.10 Atherosclerotic heart disease of native coronary artery without angina pectoris; Z95.2 Presence of prosthetic heart valve; I71.9 Aortic aneurysm of unspecified site, without rupture; I35.0 Nonrheumatic aortic (valve) stenosis; I71.4 Abdominal aortic aneurysm, without rupture; Z87.891 Personal history of nicotine dependence; R31.9 Hematuria, unspecified; T45.515A Adverse effect of anticoagulants, initial encounter; Z79.01 Long term (current) use of anticoagulants; Z95.1 Presence of aortocoronary bypass graft; D64.9 Anemia, unspecified
CPT/HCPCS: 36415; 71045; 80048; 81001; 83880; 84484; 85025; 85610; 87804; 93005; 93306; 94640; 97110; 97116; 97162; 97165; 97530; 97802; 99285; J7050; A4216; J1940

== ENCOUNTER 2018-03-05 12:28 | Emergency (ER) | payer MEDICARE, OTHER, SELFPAY ==
[2018-03-05 12:30] VITALS: BP 135/74; PULSE 91; RESP 16; TEMP 37.5; O2SAT 95; BMI 25.6
[2018-03-05 13:38] LABS: Absolute Lymphocyte Count 0.56 X10^3/ul (0.83-4.51); Absolute Neutrophil Count 3.1 X10^3/uL (2.0-7.7); Basophil# 0.01 X10^3/uL; Basophil% 0.2 % (0-1); Differential Indicated SCAN CRITERIA MET; Eosinophil# 0.05 X10^3/uL; Eosinophils% 1.2 % (0-5); Hemoglobin 11.2 g/dl (13.0-16.5); Lymphocyte # 0.56 X10^3/ul (4.0); Lymphocyte % 13.6 % (19-41); Mean Corp Hgb Conc 32.9 g/gl (32-36); Mean Corpuscular Hgb 28.6 pg (27.0-32.0); Mean Platelet Vol. 10.1 fl (6.2-12.0); Monocyte# 0.42 X10^3/uL; Monocyte% 10.2 % (0-10); Neutrophil # 3.07 X10^3/uL (2.7-7.7); Neutrophil % 74.6 % (47-70); POSITIVE COUNT NO; POSITIVE DIFFERENTIAL YES; POSITIVE MORPHOLOGY NO; Platelet Count 135 K/mm3 (150-450); RBC Distribution Width CV 15.8 % (11.6-14.6); RBC Distribution Width SD 50.7 fl (35.1-43.9); Red Blood Count 3.91 M/mm3 (4.6-6.2); White Blood Count 4.1 K/mm3 (4.4-11.0)
[2018-03-05 13:46] LABS: Anion Gap 3 (5-15); BUN 13 mg/dL (7-18); BUN/Creat Ratio 15.6 RATIO (10-20); Calcium,Total 7.9 mg/dL (8.5-10.1); Chloride 106 mmol/L (98-107); Creatinine, Serum 0.84 mg/dL (0.70-1.30); EST Glomerular Filtration Rate 94 mL/min (>60); Est Glom Filt Rate - Afr Amer 113 mL/min (>60); Estimated Creatinine Clearance 66.73 ml/min; Glucose 96 mg/dL (74-106); Potassium 4.3 mmol/L (3.5-5.1); Sodium Level 137 mmol/L (136-145)
[2018-03-05] MEDS: Lidocaine Jelly 2% 20 ML Syringe (URO-JET) 20 APPLIC TOPICAL (13:57)
[2018-03-05 13:59] LABS: International Normalized Ratio 2.6; Prothrombin Time (Protime)PT. 27.7 SECONDS (11.7-14.9)
[2018-03-05 14:10] LABS: Color, Urine Yellow (Yellow); Glucose, Dipstick Normal (Normal); Ketone-Dipstick Negative (Negative); Leukocyte Esterase-Dipstick 500 /ul (Negative); Nitrite-Dipstick Positive (Negative); Occult Blood-Urine 250 /ul (Negative); Protein-Dipstick 30 mg/dl (Negative); Specific Gravity, Urine 1.015 (1.002-1.030); Urine Bilirubin Dipstick Negative (Negative); Urine Clarity Cloudy (Clear); Urine Urobilinogen 1 mg/dl (Normal)
[2018-03-05 14:16] LABS: Red Blood Cells-Urine 5-10 SEEN /hpf (0-5); Squamous Epithelial Cells - UA 0-5 SEEN /hpf (0-5); White Blood Cells 50-100 SEEN /hpf (0-5)
[2018-03-05 14:17] LABS: Bacteria 3+ /hpf (None Seen); Mucous, Urine RARE /hpf (<or=2+)
[2018-03-05 14:28] VITALS: BP 135/73; PULSE 88; RESP 30; O2SAT 96
--- NOTE | 2018-03-05 14:54 | ED.DCSUM_ITS ---
- ER Visit Summary Date of Service: 03/05/18 Chief Complaint: Urinary retention and dysuria History of Present Illness: The patient is a [address] Mitchell and Dr. Olivares. Patient reports that despite his Lasix he has had decreased urine output the past couple of days. He states that he feels that the though he needs to go and he goes then and is unable to. Reports that he had a very weak stream this morning is been unable to go since. He denies any history of urinary retention. He denies any fever, abdominal pain, nausea, or vomiting. Physical Examination: Vitals: Stable. Afebrile. General: Well-nourished and well-developed. Head: Normocephalic atraumatic. Neck: Supple, no lymphadenopathy. No JVD. Nontender. Cardiovascular: Irregular rhythm with 2 out of 6 systolic murmur. Respiratory: No respiratory distress. Clear to auscultation bilaterally. Abdominal: Soft, nontender, nondistended, normal bowel sounds. No guarding, rebound, or peritoneal signs. I do not appreciate a distended bladder. Back: Nontender. Extremities: Nontender, no edema. Skin: Normal color, no rash. Neurologic: Alert and oriented ?3. Cranial nerves II through XII are intact. Normal strength and sensation. Psych: Normal affect. Test Results: CBC is remarkable for a white count of 4.4, H&H of 11.2 and 34.0, platelets 135, segmented neutrophils of 74, lymphocytes of 14. Chem-7 is more for calcium 7.9. INR is 2.6. UA shows an infection. Emergency Department Course and Treatment: Patient had a Staley catheter placed. Is only had a proximal me 200 cc of urine out. This was sent for culture. The Staley was removed. Patient was given Macrobid and Azo p.o. He is resting comfortably. Treatment Plan: Patient will be discharged on Macrobid as it does not affect his INR. His urine is sent for culture. Is also given Pyridium and Flomax. Instructed to follow Dr. Rosa in 1 week for another exam. Return to the emergency department for any worsening symptoms. Disposition: To home in improved and stable condition. Impression: 1. UTI. 2. Coumadin coagulopathy. This note was generated with [employer] software. It may contain incorrect words, spelling, and punctuation that were not noted in review of the chart prior to signing ED Disposition - Plan for ED Patient: Disposition: Home or Assisted Living Chief Complaint: Complaint Instructions: ED UTI Cystitis Male Prescriptions: Nitrofurantoin Macrocrystals [Macrobid] 100 mg PO Q12 #14 capsule Tamsulosin HCl [Flomax] 0.4 mg PO DAILY #30 capsule Phenazopyridine HCl [Pyridium] 200 mg PO TID #10 tablet Referrals: Danial Rosa MD [STAFF PHYSICIAN] - 1 Week
[2018-03-05] MEDS: Phenazopyridine 95 MG Tablet 190 MG PO (15:23)
[2018-03-05] MEDS: Nitrofurantoin Macrocrystals 100 MG Capsule PO (15:23)
[2018-03-05 15:27] VITALS: BP 130/78; PULSE 102; RESP 26; O2SAT 95
== END 2018-03-05 15:32 | disposition home or self-care (01) ==
PROVIDERS: Emergency Provider Emergency Medicine; Family Provider Internal Medicine; PCP Internal Medicine
DX: N39.0 Urinary tract infection, site not specified (principal); R79.1 Abnormal coagulation profile; Z79.01 Long term (current) use of anticoagulants; R01.1 Cardiac murmur, unspecified; I49.9 Cardiac arrhythmia, unspecified; Z86.73 Personal history of transient ischemic attack (TIA), and cerebral infarction without residual deficits; I25.10 Atherosclerotic heart disease of native coronary artery without angina pectoris; I10 Essential (primary) hypertension; Z95.1 Presence of aortocoronary bypass graft; Z79.82 Long term (current) use of aspirin; Z79.02 Long term (current) use of antithrombotics/antiplatelets; Z79.899 Other long term (current) drug therapy
CPT/HCPCS: 51702; 80048; 81001; 85025; 85610; 87086; 87088; 87186; 99285; A4216

== ENCOUNTER → 2018-05-21 10:49 | Outpatient (CLI) | payer MEDICARE, OTHER, SELFPAY ==
[2018-05-21 13:42] LABS: AST(SGOT) 21 U/L (15-37); Alanine Aminotransfer ALT/SGPT 20 U/L (16-61); Albumin, Serum 2.5 g/dL (3.2-5.0); Alkaline Phosphatase 73 U/L (45-117); Bilirubin, Direct 0.24 mg/dL (0.00-0.30); Cholesterol 118 mg/dL (200); Globulin 3.4 g/dL (2.2-4.2); High Density Lipoprotein 43 mg/dL; Protein, Total 5.9 g/dL (6.4-8.2); Triglycerides 78 mg/dL; Very Low Density Lipoprotein 16 mg/dL (5-40)
== END ==
PROVIDERS: Family Provider Internal Medicine; PCP Internal Medicine; Visit Provider Internal Medicine Cardiovascular Disease
DX: E78.5 Hyperlipidemia, unspecified (principal)
CPT/HCPCS: 36415; 80061; 80076

== ENCOUNTER 2018-10-06 12:52 | Emergency (ER) | payer MEDICARE, OTHER, SELFPAY ==
[2018-10-06 12:53] VITALS: BP 128/72; PULSE 69; RESP 18; TEMP 36.4; O2SAT 96; BMI 25.0
--- NOTE | 2018-10-06 13:11 | ED.DCSUM_ITS ---
- ER Visit Summary Date of Service: 10/06/18 Chief Complaint: Bilateral eye drainage History of Present Illness: The patient is a 83 M history of prior stroke, CAD, CABG and prior valve. Patient is on blood thinners secondary to A. fib. He states the last several days she has had a sore throat and URI symptoms. Has had drainage in both eyes and crusting over in the morning. Was treated at an urgent care several days ago. He denies any visual change. He wears glasses not contacts. He denies any foreign body or irritation to his eyes. No visual change. Physical Examination: Well-appearing older male. Vital signs are stable. He is afebrile. He does not look septic or toxic. HEENT exam pupils round reactive light. Both eyes are watering. There is mild discharge. No pus. Both eyes are injected. There is no subconjunctival hemorrhage. No orbital or periorbital cellulitis. Extraocular motions are intact. Exam is consistent with viral conjunctivitis. Posterior pharynx unremarkable. No strep throat. Neck nontender. No lymphadenopathy. Lungs clear to auscultation bilaterally. Heart regular rhythm no murmur. Abdomen soft nontender. Moving all 4 extremities. Neurovascularly intact. Neurologically is awake and alert with no focal motor deficits. Test Results: None Emergency Department Course and Treatment: Treated with bacitracin ophthalmic ointment for viral conjunctivitis. Treatment Plan: Bacitracin ophthalmic ointment twice a day. Warm compresses. Follow-up with his doctor as needed. Disposition: Discharge Impression: Viral conjunctivitis bilaterally This note was generated with [employer] dictation software. It may contain incorrect words, spelling, and punctuation that were not noted in review of the chart prior to signing ED Disposition - Plan for ED Patient: Chief Complaint: Cold Sx Referrals: Polo Mitchell MD [Primary Care Provider] -
--- NOTE | 2018-10-06 13:11 | ED.DEP ---
ED Disposition - Plan for ED Patient: Disposition: Home or Assisted Living Chief Complaint: Cold Sx Instructions: What Is Conjunctivitis? Referrals: Polo Mitchell MD [Primary Care Provider] - As Needed Additional Instructions: I will ointment to each eye twice a day until gone. Warm compresses to eyes to decrease the drainage and crusting. If not improving follow-up with your doctor. This may take 3-7 more days.
--- OUTSIDE RECORDS SUMMARY | 2019-01-07 20:28 | XMS RPT_ITS ---
:1935 Author Organization OHIP Support Name Relationship Address Phone NELSON, MAGNO Unavailable UNKNOWN + [place] [address] R Unavailable Unavailable Unavailable NELSON, MAGNO Unavailable Unavailable + [place] [address] R Unavailable Unavailable Unavailable NELSON, MAGNO Unavailable Unavailable + [place] [address] R Unavailable Unavailable Unavailable NELSON, MAGNO Unavailable 1 + [place] [address] R Unavailable Unavailable Unavailable NELSON, MAGNO Unavailable 1 + [place] [address] R Unavailable Unavailable Unavailable NELSON, JULIANO Unavailable Unavailable + R Unavailable Unavailable Unavailable NELSON, JULIANO Unavailable Unavailable + R Unavailable Unavailable Unavailable NELSON, JULIANO Unavailable Unavailable + R Unavailable Unavailable Unavailable NELSON, JULIANO Unavailable Unavailable + R Unavailable Unavailable Unavailable NELSON, JULIANO Unavailable Unavailable + R Unavailable Unavailable Unavailable NELSON, JULIANO Unavailable Unavailable + R Unavailable Unavailable Unavailable NELSON, JULIANO Unavailable Unavailable + R Unavailable Unavailable Unavailable NELSON, JULIANO Unavailable Unavailable + R Unavailable Unavailable Unavailable Care Team Providers Name Role Phone POLO MITCHELL Referring Unavailable ZAYNAB CHRISTOPHER (MICHAEL) Attending Unavailable POLO MITCHELL Referring Unavailable POLO MITCHELL Referring Unavailable POLO MITCHELL Referring Unavailable POLO MITCHELL Referring Unavailable POLO MITCHELL Referring Unavailable POLO MITCHELL Referring Unavailable ZAYNAB CHRISTOPHER (MICHAEL) Attending Unavailable POLO MITCHELL Referring Unavailable MITCHELL, MARCUS Referring Unavailable MITCHELL, MARCUS Referring Unavailable MITCHELL, MARCUS Referring Unavailable MITCHELL, MARCUS Attending Unavailable MITCHELL, MARCUS Referring Unavailable MITCHELL, MARCUS Attending Unavailable MITCHELL, MARCUS Referring Unavailable MITCHELL, MARCUS Referring Unavailable MITCHELL, MARCUS Referring Unavailable MITCHELL, MARCUS Referring Unavailable MITCHELL, MARCUS Referring Unavailable MITCHELL, MARCUS Referring Unavailable MITCHELL, MARCUS Referring Unavailable MITCHELL, MARCUS Referring Unavailable MITCHELL, MARCUS Attending Unavailable MITCHELL, MARCUS Referring Unavailable MITCHELL, MARCUS Referring Unavailable MITCHELL, MARCUS Referring Unavailable MITCHELL, MARCUS Referring Unavailable MITCHELL, MARCUS Referring Unavailable Mitchell, Polo Primary Care Unavailable Antoni Conroy Attending Unavailable MirandaLorna Attending Unavailable Mitchell, Polo Primary Care Unavailable Diamond Gonzales Attending Unavailable Mitchell, Polo Primary Care Unavailable Tereletsky, Lionel Admitting Unavailable Tereletsky, Lionel Attending Unavailable Tereletsky, Lionel Admitting Unavailable Mitchell, Polo Primary Care Unavailable Tereletsky, Lionel Consulting Unavailable Tereletsky, Lionel Attending Unavailable Moodispaw, Wil Attending Unavailable Mitchell, Polo Referring Unavailable Tereletsky, Lionel Admitting Unavailable Tereletsky, Lionel Attending Unavailable Mitchell, Polo Primary Care Unavailable Tereletsky, Lionel Consulting Unavailable KitEvert esparza Attending Unavailable Nikki, Jordy Attending Unavailable Tereletsky, Lionel Referring Unavailable Moodispaw, Wil Attending Unavailable Mitchell, Polo Referring Unavailable Mitchell, Polo Primary Care Unavailable Mitchell, Polo Primary Care Unavailable KierraSebastian Attending Unavailable NoltMargie Attending Unavailable Moodispaw, Wil Attending Unavailable Moodispaw, Wil Referring Unavailable Mitchell, Polo Primary Care Unavailable PROBLEMS PROBLEMS DATE TYPE CONDITION / CODE ATTENDING STATUS SOURCE 11/03/2018 Unknown I50.33 - Acute on Wil Olivares chronic diastolic Community (congestive) heart Hospital failure / Repository I50.33(ICD-10) 11/03/2018 Unknown Z95.3 - Presence of Wil Olivares xenogenic heart valve Community / Z95.3(ICD-10) Hospital Repository 11/03/2018 Unknown I71.4 - Abdominal Wil Olivares Active [place] aortic aneurysm, Community without rupture / Hospital I71.4(ICD-10) Repository 10/13/2018 Unknown H57.89 - Other Antoni Conroy Active [place] specified disorders Community of eye and adnexa / Hospital H57.89(ICD-10) Repository 08/04/2017 Active 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 / M17.0(ICD-10) [place] Repository 05/21/2018 Unknown E78.5 - Wil Olivares Active [place] Hyperlipidemia, Community unspecified / Hospital E78.5(ICD-10) Repository 09/27/2016 Active terminal operator (current) NA Active [place] use of anticoagulants [facility] / Z79.01(ICD-10) [place] Repository 01/21/2018 Active Atherosclerotic heart NA Active [place] disease of [place] [facility] Main coronary artery [place] without angina Repository pectoris / I25.10(ICD-10) 01/21/2018 Active Heart failure, NA Active [place] unspecified / Clinic Main I50.9(ICD-10) [place] Repository 08/04/2017 Active Anemia, unspecified / NA Active [place] D64.9(ICD-10) Clinic Main [place] Repository 02/02/2017 Active Unspecified atrial NA Active [place] fibrillation / Clinic Main I48.91(ICD-10) [place] Repository 12/15/2017 Active Chronic atrial NA Active [place] fibrillation / Clinic Main I48.2(ICD-10) [place] Repository 02/23/2018 Unknown R23.3 - Spontaneous Ungur, Remus Active [place] ecchymoses / Community R23.3(ICD-10) Hospital Repository PROCEDURES PROCEDURES No Procedure Records FoundRESULTS RESULTS PROGRESS Observed: 11/05/2018 Status: COMPLETED Source: [place] 3:04 PM [facility] REPOSITORY HNO ID: [id number] Author: Natalia Mehta LPN Service: (none) Author Type: (none) Type: Progress Notes Filed: 11/05/2018 3:05 PM Note Text: Phoned patient and went over coumadin instructions from Zaynab Older BOILER COVERER 5 mg daily and recheck INR on 11/12/2018 as scheduled with understanding. PROGRESS Observed: 11/05/2018 Status: COMPLETED Source: [place] 1:02 PM [facility] REPOSITORY HNO ID: [id number] Author: Zaynab Reyes) Candi Service: (none) Author Type: Nurse Practitioner Type: Progress Notes Filed: 11/05/2018 3:05 PM Note Text: Decrease dose to 5 mg daily Zaynab Christopher APRN.CNP PROGRESS Observed: 11/05/2018 Status: COMPLETED Source: [place] 12:43 PM [facility] REPOSITORY HNO ID: [id number] Author: Lorna Mata RN Service: (none) Author Type: (none) Type: Progress Notes Filed: 11/05/2018 12:44 PM Note Text: patient had inr completed at [facility] patients inr is 3.6 (patients inr range is 2.0-3.0) patient is currently taking 7.5mg Tues and 5mg all other days patients last dose change was on 10/15/18 due to a high level of 4.3 (dose at that time was 7.5mg Tues,Thurs and 5mg all other days) patient has had no changes in medication and no missed doses and no change in diet Advised patient that they would be contacted regarding medication dose and when to follow up after information is reviewed by provider. After provider review please contact the patient with information and schedule follow up appointment with coumadin clinic. FYI - patient has been scheduled for a 1 week follow up inr on 11/12/18 CARDIOLOGY VISIT Observed: 11/03/2018 Status: F Source: [place] REPORT 1:15 PM [facility] REPOSITORY [facility] [address] [place] [address]. [address] [place] [address] OFFICE VISIT Date of Service: 11/03/18 MR#: [id number] Acct: [id number] Name: SIMA MULLEN Rep #: [id number] : 1935 Provider: Wil Olivares MD Age/Sex: 83/M Location: [facility] Status: Signed HPI HPI Details: SIMA MULLEN, is a 83 M who presents to the office today for Outpatient cardiovascular follow up. From a cardiac standpoint he states he is doing well with respect not having ongoing chest pain or shortness of breath with respect orthopnea or PND. He has had no obvious near syncope or syncope. He states he has not had to go through any other cardiovascular diagnostic studies are therapeutic intervention since his previous visit. He did undergo a transthoracic echocardiogram and abdominal/pelvic CT scan in November and December 2017. This was to follow his bioprosthetic aortic valve and his abdominal aortic aneurysm and peripheral arterial occlusive disease. He states that he is being considered for upcoming knee replacement surgery. He believes this may occur at a [facility] main campus. Intake Vital Signs11/03/18 Body Mass Index (BMI) 25.0 11/03/18 Height 5 ft 8 in 11/03/18 Weight: 177 lb 11/03/18 Body Mass Index (BMI) 26.9 11/03/18 Blood Pressure 118/62 Intake Visit Reasons: 6 m fu Allergies No Known Allergies Allergy (Verified 11/03/18 10:28) Medications Atorvastatin Calcium [Lipitor] 20 mg PO QHS 10/21/15 [History Confirmed 11/03/18] Clopidogrel Bisulfate [Plavix] 75 mg PO DAILY 10/18/17 [History Confirmed 11/03/18] Aspirin [Aspirin, Baby] 81 mg PO QHS 12/10/17 [History Confirmed 11/03/18] Furosemide [Lasix] 40 mg PO DAILY #30 tab 12/26/17 [Rx Confirmed 11/03/18] Potassium Chloride 20 meq PO DAILY #60 tablet.er 12/26/17 [Rx Confirmed 11/03/18] Tamsulosin HCl [Flomax] 0.4 mg PO DAILY #30 cap 03/05/18 [Rx Confirmed 11/03/18] Warfarin Sodium 5 mg PO SUMOWEFRSA 03/05/18 [History Confirmed 11/03/18] metoprolol tartrate 50 mg tablet 25 mg PO BID tab 05/17/18 [History Confirmed 11/03/18] [facility] Medical History Diastolic CHF, acute on chronic (Chronic) Abdominal aortic aneurysm without rupture (Chronic) Atrial fibrillation, permanent (Chronic) Atherosclerotic heart disease of [place] coronary artery without angina pectoris (Chronic) Essential hypertension (Chronic) Nonrheumatic mitral (valve) insufficiency (Chronic) Nonrheumatic aortic (valve) stenosis (Chronic) History of myocardial infarction (Chronic) Left atrial thrombus (Chronic) History of peripheral vascular disease (Chronic) CVA (cerebral vascular accident) (Chronic) Hyperlipidemia (Chronic) Hyponatremia (Chronic) Pulmonary HTN (Chronic) Urinary hesitancy (Chronic) BPH (benign prostatic hyperplasia) (Chronic) Diverticulitis (Chronic) Aortic stenosis (Inactive) CAD (coronary artery disease) (Inactive) CHF (congestive heart failure) (Inactive) Hypertension (Inactive) Surgical History History of cardioversion (Chronic 02/2006) Status post transcatheter aortic valve replacement (TAVR) using bioprosthesis (Chronic 08/27/16) History of coronary artery bypass graft (Chronic 03/2004) Family History Father , Age 57 Aortic aneurysm Mother , Age 56 Cancer Daughter Heart disease Social History Smoking Status: Former smoker pack-years: 15 alcohol intake: never ROS Const Const: Negative for fatigue, weakness, weight gain, weight loss, frequent falls or excessive sweating Eyes Eyes: Negative for change in vision, blurry vision or transient loss of vision ENT ENT: Positive for balance problems (ambulates with a cane); negative for dizziness Cardio Chest Pain: No Palpitations: No Edema: None Muscle aches with walking: None Resp Respiratory: Negative for SOB with activity or SOB at rest GI GI: Negative vomiting or vomiting blood/hematemesis : Negative for hematuria Musc Musc: Positive for balance problems (ambulates with a cane) and muscle aches/ myalgia (bilat knee pain, occasional leg cramping at night); negative for muscle weakness or joint pain Skin Skin: Negative non-healing lesions or rash Neuro Neuro: Negative for weakness, blurry vision, dizziness, lightheadedness, frequent falls or orthostatic symptoms Martin Hematologic/Lymphatic: Negative for easy bleeding Endo Endo: Negative for fatigue or excessive sweating Psych Psych: Negative for anxiety or depression Allergy Allergy/Immunology: Negative for hives, Negative for rash Cardiology Exam Const Appearance: cooperative, comfortable, no acute distress, well groomed, healthy appearing and well developed Nutritional Appearance: overweight Orientation: alert, awake and oriented x3 Head Head: normal to inspection, normocephalic and atraumatic Ears: hearing grossly normal bilaterally Nose: external nose normal Face and Sinus: face symmetric Mouth: oral mucosae normal Eyes Eyelids: eyelids normal Conjunctivae: conjunctivae normal EOM: EOM intact bilaterally Neck Neck: normal visual inspection and full ROM Carotids: normal carotid upstroke and bruit Right Chest Chest inspection: normal inspection of the chest, symmetric chest movement and normal respiratory effort Auscultation: Bilateral: Clear to Auscultation Cardio Palpation: normal PMI Rhythm: irregular rhythm Heart sounds: S1 normal and S2 normal Murmur: soft, mid systolic, LLSB, Grade 2/6, LVOT and sternal notch GI GI: normal to inspection, soft and bowel sounds present Neuro General: alert, awake and oriented x3 Skin Skin: no rashes or lesions noted Extremities Pulses: Normal: Right Radial Pulse, Left Radial Pulse Lower Extremity Edema: Trace: Right Psych Psychological: normal affect Assessment AND Plan 1. Atherosclerosis of [place] coronary artery of [place] heart without angina pectoris I25.10 Plan At the present time he appears to be without any ongoing acute symptoms. He will continue risk factor evaluation medical therapy is deemed appropriate. He did not appear he needed reevaluation of his coronary anatomy/graft anatomy at this time. 2. History of coronary artery bypass graft Z95.1 LAI to LAD, saphenous vein graft to CFX PDA Plan He does have a history of previous CABG. Again at the moment he appears to be stable without any acute symptoms. He was not found he required repeat evaluation all of his coronary and graft anatomy at this time. 3. Status post transcatheter aortic valve replacement (TAVR) using bioprosthesis Z95.3 Plan He does have a history of a transcatheter aortic valve replacement procedure being performed at the [facility] and 2016. This will be followed by history, exam, and echocardiogram. Noting he has upcoming knee replacement surgery he will have a followup echocardiogram to reassess his cardiac anatomy and physiology prior to this. He knows he needs to continue a BERNARD antibiotic prophylaxis. Orders Orders: 4. Atrial fibrillation, permanent I48.2 Plan He remains in atrial fibrillation. He remains on medical management. He has had no obvious hemorrhagic issues. He will continue to be followed. 5. Hyperlipidemia, unspecified hyperlipidemia type E78.5 Plan His lipids were evaluated in May 2018. His total cholesterol was 118 with an LDL of 59 and an HDL of 43. Her triglycerides were 78. He will continue medical management. 6. Essential hypertension I10 Plan His blood pressure appears to be well controlled. He will continue medical therapy. 7. Abdominal aortic aneurysm without rupture I71.4 Plan He will be scheduled for a future follow up abdominal/pelvic CT scan to monitor his abdominal aortic aneurysm and peripheral arterial occlusive disease. Orders Orders: 8. 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 If a previous carotid artery duplex study was not performed would be reasonable to obtain one for further evaluation care. Plan Detail Other Orders Orders: Follow Up 6 Months (PFM) Coding Level of Care Code Off vis,est,level 4 Diagnoses Atherosclerosis of [place] coronary artery of [place] heart without angina pectoris I25.10 [place] vs. 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 Carotid artery disease type: stenosis Laterality: right Supplemental Info Supplemental Information Labs LDL Cholesterol 59 mg/dL (0-130) 05/21/18 HDL Cholesterol 43 mg/dL (40-) 05/21/18 Triglycerides 78 mg/dL (-199) 05/21/18 VLDL Cholesterol 16 mg/dL (5-40) 05/21/18 Diagnostics Electrocardiogram 12/24/17 Echocardiogram 12/25/17 Stress Test Nuclear Medicine 02/26/16 Chest X-Ray 12/24/17 11/03/18 1315 <Electronically signed by Wil Olivares MD> Date Wil Olivares MD Cosigner Signature: Date (if applicable) CC: Polo Mitchell MD PROGRESS Observed: 10/22/2018 Status: COMPLETED Source: [place] 3:01 PM [facility] REPOSITORY HNO ID: [id number] Author: Zaynab Reyes) Candi Service: (none) Author Type: Nurse Practitioner Type: Progress Notes Filed: 10/22/2018 3:01 PM Note Text: Katrin Christopher, SUPERVISOR FORMING DEPARTMENT.ARMY MANAGER PROGRESS Observed: 10/22/2018 Status: COMPLETED Source: [place] 2:55 PM [facility] REPOSITORY HNO ID: [id number] Author: Lorna Mata RN Service: (none) Author Type: (none) Type: Progress Notes Filed: 10/22/2018 2:57 PM Note Text: patient had inr completed at [facility] patients inr is 2.4 (patients inr range is 2.0-3.0) patient is currently taking 7.5mg Tues and 5mg all other days patients last dose change was on 10/15/18 due to a high level of 4.3 (dose at that time was 7.5mg Tues,Thurs and 5mg all other days) patient has had no changes in medication and no missed doses and no change in diet Advised patient to continue on the same dose(s) and that they would only be contacted regarding dosage and follow up instructions after review with provider, if a change is needed. Written instructions given and patient verbalized understanding. Presently scheduled in 2 weeks (11/05/18) for follow up INR since this is the first normal reading since dose change PROGRESS Observed: 10/15/2018 Status: COMPLETED Source: [place] 4:45 PM [facility] REPOSITORY HNO ID: [id number] Author: Lorna Mata RN Service: (none) Author Type: (none) Type: Progress Notes Filed: 10/15/2018 4:46 PM Note Text: per written order by dr herrera pt is to hold dose today and then start with 7.5mg Tues and 5mg all other days PATIENT NOTIFIED OF INFORMATION PROGRESS Observed: 10/15/2018 Status: COMPLETED Source: [place] 3:28 PM [facility] REPOSITORY HNO ID: [id number] Author: Lorna Mata RN Service: (none) Author Type: (none) Type: Progress Notes Filed: 10/15/2018 3:29 PM Note Text: patient had inr completed at [facility] patients inr is 4.3 (patients inr range is 2.0-3.0) patient is currently taking 7.5mg Tues,Thurs and 5mg all other days patients last dose change was on 02/09/18 due to a low level of 1.6 (dose at that time was 5mg daily) patient has had no changes in medication and no missed doses and no change in diet Advised patient that they would be contacted regarding medication dose and when to follow up after information is reviewed by provider. After provider review please contact the patient with information and schedule follow up appointment with coumadin clinic. FYI - patient has been scheduled for a 1 week follow up inr on 10/22/18 PROGRESS Observed: 10/07/2018 Status: COMPLETED Source: [place] 11:41 AM [facility] REPOSITORY HNO ID: [id number] Author: Lucy (Rn) Ingrid Fields RN Service: (none) Author Type: Registered Nurse Type: Progress Notes Filed: 10/07/2018 11:52 AM Note Text: PRIMARY CARE COORDINATION QUICK NOTE Provider Action/FYI Noted PCC for short term care coordination for chronic disease management High utilization Patient identified by name and date . Felipa Delarosa RN., BSN Insurance Sales Specialist EMERGENCY DEPARTMENT Observed: 10/06/2018 Status: F Source: [facility] 4:47 PM [facility] REPOSITORY [facility] Medical Records Department [address] [place] [address] Emergency Department Summary 10/06/18 1308 MR#: [id number] Acct: [id number] Name: SIMA MULLEN Rep #: [id number] : 1935 83 From: Antoni Conroy MD PCP: Polo Mitchell MD Status: DEP ER - ER Visit Summary Date of Service: 10/06/18 Chief Complaint: Bilateral eye drainage History of Present Illness: The patient is a 83 M history of prior stroke, CAD, CABG and prior valve. Patient is on blood thinners secondary to A. fib. He states the last several days she has had a sore throat and URI symptoms. Has had drainage in both eyes and crusting over in the morning. Was treated at an urgent care several days ago. He denies any visual change. He wears glasses not contacts. He denies any foreign body or irritation to his eyes. No visual change. Physical Examination: Well-appearing older male. Vital signs are stable. He is afebrile. He does not look septic or toxic. HEENT exam pupils round reactive light. Both eyes are watering. There is mild discharge. No pus. Both eyes are injected. There is no subconjunctival hemorrhage. No orbital or periorbital cellulitis. Extraocular motions are intact. Exam is consistent with viral conjunctivitis. Posterior pharynx unremarkable. No strep throat. Neck nontender. No lymphadenopathy. Lungs clear to auscultation bilaterally. Heart regular rhythm no murmur. Abdomen soft nontender. Moving all 4 extremities. Neurovascularly intact. Neurologically is awake and alert with no focal motor deficits. Test Results: None Emergency Department Course and Treatment: Treated with bacitracin ophthalmic ointment for viral conjunctivitis. Treatment Plan: Bacitracin ophthalmic ointment twice a day. Warm compresses. Follow-up with his doctor as needed. Disposition: Discharge Impression: Viral conjunctivitis bilaterally This note was generated with [employer] dictation software. It may contain incorrect words, spelling, and punctuation that were not noted in review of the chart prior to signing ED Disposition - Plan for ED Patient: Chief Complaint: Cold Sx Referrals: Polo Mitchell MD [Primary Care Provider] - What to do if you have Problems For any increased pain, shortness of breath, bleeding, nausea or vomiting, chest pain, or any unexpected problems, contact your Primary Care Provider. Call [facility] ([phone]) or report to the closest Emergency Room. Call 911 if necessary. 10/06/18 0832 <Electronically signed by Antoni Conroy MD> Date Antoni Conroy MD Cosigner Signature (If Indicated): Date CC: Polo Mitchell MD DISCHARGE INSTRUCTION Observed: 10/06/2018 Status: F Source: [place] 4:47 PM [facility] RE[facility]IT[facility] Medical Records Department [address] [place] [address] Discharge Instruction 10/06/18 1311 MR#: [id number] Acct: [id number] Name: SIMA MULLEN Rep #: [id number] : 1935 83 From: Antoni Conroy MD PCP: Polo Mitchell MD Status: DEP ER ED Disposition - Plan for ED Patient: Disposition: Home or Assisted Living Chief Complaint: Cold Sx Instructions: What Is Conjunctivitis? Referrals: Polo Mitchell MD [Primary Care Provider] - As Needed Additional Instructions: I will ointment to each eye twice a day until gone. Warm compresses to eyes to decrease the drainage and crusting. If not improving follow-up with your doctor. This may take 3-7 more days. What to do if you have Problems For any increased pain, shortness of breath, bleeding, nausea or vomiting, chest pain, or any unexpected problems, contact your Primary Care Provider. Call [facility] ([phone]) or report to the closest Emergency Room. Call 911 if necessary. 10/06/18 1647 <Electronically signed by Antoni Conroy MD> Date Antoni Conroy MD Cosigner Signature (If Indicated): Date CC: Polo Mitchell MD PROGRESS Observed: 09/20/2018 Status: COMPLETED Source: [place] 12:21 PM [facility] REPOSITORY HNO ID: [id number] Author: Chyna Miller Service: (none) Author Type: Tool Setter Type: Progress Notes Filed: 10/07/2018 11:52 AM Note Text: [facility] HUMAN RESOURCES PROJECT COORDINATOR QUICKNOTE Provider Action/FYI: Recent Hospitalizations, ED, Observations [facility] ED 03/05/18 [facility] ED 12/10/17 [facility] Admission 12/24/17-12/26/17 [facility] ED 10/18/17 CHRONIC DX: Afib CAD CHF HTN CARE GAPS: None Patient identified by name and . Thank you, Chyna Miller [facility] Tool Setter [facility] Project [phone] MICHAELTOUTREACH Observed: 09/20/2018 Status: COMPLETED Source: [place] 12:00 AM [facility] REPOSITORY Patient Outreach (INTMWS) SIMA MULLEN ([id number]) 1935 M TXT Date Time Provider Department 09/20/18 CHYNA MILLER (MELIDA) INTMWS During your visit today, we recorded the following information about you: Chyna Miller MA 10/07/2018 11:52 AM Signed [facility] ASSISTANT QUICKNOTE Provider Action/FYI: Recent Hospitalizations, ED, Observations [facility] ED 03/05/18 [facility] ED 12/10/17 [facility] Admission 12/24/17-12/26/17 [facility] ED 10/18/17 CHRONIC DX: Afib CAD CHF HTN CARE GAPS: None Patient identified by name and . Thank you, Chyna Miller [facility] Tool Setter O Project [phone] Lucy Fields, RN, RN 10/07/2018 11:52 AM Signed PRIMARY CARE COORDINATION QUICK NOTE Provider Action/FYI Noted PCC for short term care coordination for chronic disease management High utilization Patient identified by name and date . Felipa Delarosa RN., BSN Insurance Sales Specialist Allergies As of Date: 09/20/2018 Noted Allergy Reaction NO KNOWN ALLERGIES 04/12/2004 Comments: nkda Date Reviewed: 09/01/2018 Reviewed by: Jaylin Huitron LPN - Fully Assessed Reason for Visit: Supervisor Grower - Other [[id number]] Cmt: ACO Prescriptions as of 09/20/2018 Sig: * ACETAMINOPHEN 325 MG TABLET Take 650 mg by mouth every 6 * ASCORBIC ACID (VITAMIN C) 500* Take 1,000 mg by mouth once d* ASPIRIN 81 MG TABLET,DELAYED * Take 1 tablet by mouth once d* ATORVASTATIN 40 MG TABLET Take 0.5 tablets by mouth lefty* CALCIUM 500 ORAL Take by mouth once daily. CLOPIDOGREL 75 MG TABLET Take 1 tablet by mouth once d* FUROSEMIDE 40 MG TABLET Take 1 tablet by mouth once d* GABAPENTIN 100 MG CAPSULE 1 capsule daily x 14 days, th* * [id number]-[id number]-XU GLYCN-* Take 1 tablet by mouth once d* HYALURONIC ACID (CHOND-COLLGN* Take 1 tablet by mouth three * METHYLSULFONYLMETHANE 1,000 M* Take 1 tablet by mouth twice * METOPROLOL TARTRATE 50 MG TAB* Take 0.5 tablets by mouth kieran* * MULTIVITAMIN TABLET Take one(1) tablet daily. NITROGLYCERIN 0.4 MG SUBLINGU* Dissolve 1 tablet under the t* OMEGA-3 FATTY ACIDS 500 MG CA* Take 500 mg by mouth once lefty* POTASSIUM CHLORIDE ER 10 MEQ * Take 2 tablets by mouth daily* SENNOSIDES 8.6 MG-DOCUSATE SO* Take 1 tablet by mouth twice * Patient taking differently: Take 1 tablet by mouth as nee* COQ10 SG 100 ORAL Take by mouth once daily. 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 CAD (coronary artery disease), cachil dehe coronary *INVALID FOR* More... Acute, but ill-defined, cerebrovascular disease*INVALID FOR*02/02/2017 Hyperlipidemia [E78.5] INVALID FOR* More... More... Valvular heart disease [I38] INVALID FOR*02/02/2017 More... Atrial Fibrillation on Coumadin [I48.91] INVALID FOR* Asthma [J45.909] INVALID FOR*02/02/2017 More... BPH with urinary obstruction [N40.1, N13.8] INVALID FOR* Essential hypertension [I10] INVALID FOR* Abnormal stress test [R94.39] INVALID FOR*08/27/2016 More... Pre-operative cardiovascular examination [Z01.8*INVALID FOR*09/26/2016 Aortic stenosis s/p transapical AVR [I35.0] INVALID FOR* More... Preop testing [Z01.818] INVALID FOR*09/26/2016 More... Atelectasis [J98.11] INVALID FOR*02/02/2017 More... More... SUMMARY INVALID FOR*02/02/2017 More... Discharge planning issues [Z02.9] INVALID FOR*09/26/2016 More... detention current use of anticoagulant [Z79.01]*INVALID FOR* Anemia [D64.9] INVALID FOR* Gait abnormality [R26.9] INVALID FOR* Arthritis of both knees [M17.0] INVALID FOR* Hyponatremia [E87.1] INVALID FOR*04/07/2018 Congestive heart failure (HCC) [I50.9] INVALID FOR* Postherpetic neuralgia [B02.29] INVALID FOR* Encounter Status:Closed by LUCY ROGEL on 10/07/18 PROGRESS Observed: 09/17/2018 Status: COMPLETED Source: [place] 3:37 PM [facility] REPOSITORY HNO ID: [id number] Author: Zaynab Christopher Service: (none) Author Type: Nurse Practitioner Type: Progress Notes Filed: 09/17/2018 3:37 PM Note Text: Katrin Christopher, MAGGI PROGRESS Observed: 09/17/2018 Status: COMPLETED Source: [place] 3:34 PM [facility] REPOSITORY HNO ID: [id number] Author: Lorna Mata RN Service: (none) Author Type: (none) Type: Progress Notes Filed: 09/17/2018 3:36 PM Note Text: patient had inr completed at [facility] patients inr is 2.8 (patients inr range is 2.0-3.0) patient is currently taking 7.5mg Tues,Thurs and 5mg all other days patients last dose change was on 02/09/18 due to a low level of 1.6 (dose at that time was 5mg daily) patient has had no changes in medication and no missed doses and no change in diet Advised patient to continue on the same dose(s) and that they would only be contacted regarding dosage and follow up instructions after review with provider, if a change is needed. Written instructions given and patient verbalized understanding. Presently scheduled in 4 weeks (10/15/18) for follow up INR. PROGRESS Observed: 09/07/2018 Status: COMPLETED Source: [place] 1:42 PM [facility] REPOSITORY HNO ID: [id number] Author: Andre Puente (Rt) Valery Pendleton Service: (none) Author Type: Rod Puller And Coiler Type: Progress Notes Filed: 09/07/2018 1:42 PM Note Text: Radiology Service Progress Note PATIENT NAME: Sima Mullen DATE OF SERVICE: September 07, 2018 TIME: 1:42 PM PATIENT IDENTITY VERIFICATION COMPLETED USING TWO (2) METHODS: Patient confirmed name verbally and Date of . PATIENT GENDER DATA: Male PATIENT RELEVANT IMPLANT DATA REVIEWED: Not Applicable RADIOLOGY DEPARTMENT: General X-ray: Exam(s) Completed: Lower Extremity X-Ray(s): Knee, AP / Lat / Tunne / Merchant Bilateral and Wt. Bearing: PERIPHERAL IV DATA: Not applicable SIGNED BY: RT Pro September 07, 2018 1:42 PM XR KNEE 4V AP/PA/LAT/MERCH Observed: 09/07/2018 Status: C Source: [facility] 1:41 PM [facility] REPOSITORY * * *Final Report* * * * * * SEE BOTTOM OF REPORT FOR ADDENDED TEXT * * * DATE OF EXAM: Sep 07 2018 1:41PM WOX [id number] - XR KNEE 4V AP/PA/LAT/MERCH LACY / PROCEDURE REASON: Arthritis of both knees * * * * Physician Interpretation * * * * * * * * * * * * ORIGINAL REPORT * * * * * * * * HISTORY: 83-YEAR-OLD MALE WITH Arthritis of both knees . Pt. states chronic bilateral knee pain. No injury. TECHNIQUE: XR KNEE 4V AP/PA/LAT/MERCH LACY Laterality: BILATERAL Number of different views (projections): 4 each COMPARISON: None RESULT: Bilateral knees, severe medial compartment joint space during bilaterally. Lateral segment translation of the tibia in relation to the femur. Bilateral genu varus. Osteophytes about the knee joint bilaterally. Patellofemoral joint is mildly narrowed laterally bilaterally with osteophytes. Small joint effusion on the right. No joint effusion on the left. No fracture. Arterial callus occasions are present. There are surgical clips in the soft tissues medial to the lower thigh and knee bilaterally. IMPRESSION: DEGENERATIVE JOINT DISEASE BILATERALLY WITH SEVERE DEGENERATIVE CHANGES IN THE MEDIAL COMPARTMENT BILATERALLY. * * * * * * * * ADDENDUM #1 * * * * * * * * Osteopenia. Admissions Representative: RIP Transcribe Date/Time: Sep 08 2018 2:35P Dictated by : VIRGILIO GUAMAN MD This examination was interpreted and the report reviewed and electronically signed by: VIRGILIO GUAMAN MD on Sep 08 2018 2:33PM EST This document has been addended by: VIRGILIO GUAMAN MD on Sep 08 2018 2:36PM EST [id number] PROGRESS Observed: 09/02/2018 Status: COMPLETED Source: [place] 9:16 AM [facility] REPOSITORY O ID: [id number] Author: Polo Mitchell Service: (none) Author Type: Physician Type: Progress Notes Filed: 09/02/2018 9:25 AM Note Text: This note was created using Techfooter. Subjective Sima Mullen is a 83 year old male here for follow up. He started experiencing vague visual hallucinations he attributed to gabapentin. He called and started weaning down the medication with resolution of his symptoms. Symptoms consisted of trying to lease picker an familiar object only to realize it was not there. His neuralgia was stable and he preferred come off gabapentin completely. His other conditions were controlled and stable. He was now interested in having knee surgery due to ongoing gait problems. ACTIVE PROBLEM LIST Cad (Coronary Artery Disease), [place] Coronary Artery Hyperlipidemia Atrial Fibrillation on Coumadin Bph With Urinary Obstruction Essential Hypertension Aortic stenosis s/p transapical AVR detention current use of anticoagulant [Z79.01] Anemia Gait Abnormality Arthritis of Both Knees Congestive Heart Failure (Hcc) Postherpetic Neuralgia Current Outpatient Prescriptions: furosemide (LASIX) 40 mg tablet Take 1 tablet by mouth once daily. gabapentin (NEURONTIN) 100 mg capsule 1 capsule daily x 14 days, then 1 capsule every other day for 14 days, then stop. nitroglycerin sublingual (NITROQUICK) 0.4 mg SL tablet Dissolve 1 tablet under the tongue every 5 minutes as needed for Chest Pain. atorvastatin (LIPITOR) 40 mg tablet Take 0.5 tablets by mouth daily at bedtime. For cholesterol. potassium chloride (K-TAB) 10 mEq tablet Take 2 tablets by mouth daily with breakfast. clopidogrel (PLAVIX) 75 mg tablet Take 1 tablet by mouth once daily. metoprolol tartrate, short acting, (LOPRESSOR) 50 mg tablet Take 0.5 tablets by mouth every 12 hours. warfarin (COUMADIN) 5 mg tablet Take 5 mg daily or as directed warfarin (COUMADIN) 5 mg tablet TAKE 1 TABLET BY MOUTH EVERY DAY OR DIRECTED hyalur ac/chond sul/colg II/AA (HYALURONIC ACID, CHOND-COLLGN, ORAL) Take 1 tablet by mouth three times daily. tamsulosin ER (FLOMAX) 0.4 mg cp24 Take 1 capsule by mouth daily at bedtime. Gilbert-3 Fatty Acids (FISH OIL) 500 mg cap Take 500 mg by mouth once daily. Methylsulfonylmethane (MSM) 1,000 mg tab Take 1 tablet by mouth twice daily. aspirin, enteric coated (ASPIR-LOW) 81 mg EC tablet Take 1 tablet by mouth once daily. ascorbic acid, vitamin C, (VITAMIN C) 500 mg tablet Take 1,000 mg by mouth once daily. UBIDECARENONE/VITAMIN E MIXED (COQ10 SG 100 ORAL) Take by mouth once daily. senna-docusate (SENNA-S) 8.6-50 mg per tablet Take 1 tablet by mouth twice daily. (Patient taking differently: Take 1 tablet by mouth as needed. ) acetaminophen (TYLENOL) 325 mg ORAL tablet Take 650 mg by mouth every 6 hours as needed. CALCIUM CARBONATE (CALCIUM 500 ORAL) Take by mouth once daily. GLUC HCL/CSANA/GLY-AM-GLY,MX/C ([id number]-AV GLYCN- C ORAL) Take 1 tablet by mouth once daily. MULTIVITAMIN ORAL TAB Take one(1) tablet daily. No current facility-administered medications for this visit. Review of Systems Constitutional: Negative. Respiratory: Negative. Cardiovascular: Negative. Gastrointestinal: Negative. Genitourinary: Negative. Musculoskeletal: Positive for arthralgias and gait problem. Neurological: Negative for dizziness, seizures, syncope and headaches. Psychiatric/Behavioral: Negative for hallucinations. Objective BP 132/76 (BP Site: Left Arm, BP Position: Sitting, BP Cuff Size: Regular Adult) Pulse 60 Temp (!) 35.9 ?C (96.7 ?F) (Left Tympanic) Resp 12 Wt 77.1 kg (170 lb) BMI 27.86 kg/m? Physical Exam Constitutional: No distress. HENT: Head: Atraumatic. Eyes: Conjunctivae are normal. No scleral icterus. Neck: No JVD present. Cardiovascular: Normal rate, regular rhythm, S1 normal and S2 normal. Exam reveals no gallop. No murmur heard. Pulmonary/Chest: Breath sounds normal. Abdominal: Soft. Musculoskeletal: He exhibits no edema. Right knee: He exhibits deformity and LCL laxity. Left knee: He exhibits deformity. He exhibits no LCL laxity and no MCL laxity. Knees with nonspecific tenderness, bilateral varus deformities. Assessment and Plan 1. Arthritis of both knees - ICD9: 716.96, ICD10: M17.0 (primary diagnosis) - XR KNEE GENERAL 4V AP BOTH/PA BOTH/LAT/MERC BILAT - He will schedule with a [facility] accounting software specialist of his choice, with the help of his relative. 2. Need for vaccination - ICD9: V05.9, ICD10: Z23 - ADMIN OF INFLUENZA VACCINE - INFLUENZA SEASONAL HIGH DOSE AGE 65+ 3. Congestive heart failure, unspecified HF chronicity, unspecified heart failure type (HCC) - ICD9: 428.0, ICD10: I50.9 Stable. - FUROSEMIDE 40 MG TABLET 4. Postherpetic neuralgia - ICD9: 053.19, ICD10: B02.29 Wean off medication. - GABAPENTIN 100 MG CAPSULE 5. Medication side effects - ICD9: 995.20, ICD10: T88.7XXA Wean off gabapentin. 6. Essential hypertension - ICD9: 401.9, ICD10: I10 - good control - Continue current medication(s) 7. Atrial fibrillation, unspecified type (HCC) - ICD9: 427.31, ICD10: I48.91 See anticoagulation encounter. Polo Mitchell MD PROGRESS Observed: 09/01/2018 Status: COMPLETED Source: [place] 5:11 PM [facility] REPOSITORY HNO ID: [id number] Author: Polo Mitchell Service: (none) Author Type: Physician Type: Progress Notes Filed: 09/01/2018 5:12 PM Note Text: Continue Coumadin dose. INR in 2 weeks. Patient aware. CNOV Observed: 09/01/2018 Status: COMPLETED Source: [place] 4:20 PM [facility] REPOSITORY Office Visit (INTMWS) SIMA MULLEN ([id number]) 1935 M TXT Date Time Provider Department 09/01/18 4:20 PM POLO MITCHELL INTMWS During your visit today, we recorded the following information about you: Temperature Pulse Respiration Blood pressure 96.7 degrees 60/minute 12/minute 132/76 Weight 77.1 kg Jaylin Huitron LPN 09/01/2018 5:10 PM Signed Influenza Vaccine Documentation: ? Patient is identified by name and date of : Yes ? Patient is older than 6 months of age: Yes ? Patient denies a severe allergy to any vaccine component or to a previous dose of influenza vaccine: Yes FOR EGG ALLERGY CONCERNS, REFER TO PROVIDER. ? Denies allergy to gelatin, formaldehyde, thimerosol :Yes ? Patient is afebrile and not moderately or severely ill: Yes ? Does the patient have a history of Guillain ?[place] Syndrome (a severe paralytic illness): No ? Denies bone marrow transplant prior 6 months or solid organ transplant prior 3 months: Yes ? Denies a history of fainting after a prior injection or medical procedure? Yes If patient has fainted in the past, the CDC recommends sitting or lying down for 15 minutes after the vaccination. ? VIS sheet provided: Yes ? See Immunization Form in EpicCare for details of immunizations administered today. If patient reports dizziness, vision changes or ringing in the ears post vaccination ? please have patient sit or lie down for 15 minutes. Polo Mitchell MD 09/02/2018 9:25 AM Signed This note was created using NoteWriter. Subjective Sima Mullen is a 83 year old male here for follow up. He started experiencing vague visual hallucinations he attributed to gabapentin. He called and started weaning down the medication with resolution of his symptoms. Symptoms consisted of trying to lease picker an familiar object only to realize it was not there. His neuralgia was stable and he preferred come off gabapentin completely. His other conditions were controlled and stable. He was now interested in having knee surgery due to ongoing gait problems. ACTIVE PROBLEM LIST Cad (Coronary Artery Disease), [place] Coronary Artery Hyperlipidemia Atrial Fibrillation on Coumadin Bph With Urinary Obstruction Essential Hypertension Aortic stenosis s/p transapical AVR terminal operator current use of anticoagulant [Z79.01] Anemia Gait Abnormality Arthritis of Both Knees Congestive Heart Failure (Hcc) Postherpetic Neuralgia Current Outpatient Prescriptions: furosemide (LASIX) 40 mg tablet Take 1 tablet by mouth once daily. gabapentin (NEURONTIN) 100 mg capsule 1 capsule daily x 14 days, then 1 capsule every other day for 14 days, then stop. nitroglycerin sublingual (NITROQUICK) 0.4 mg SL tablet Dissolve 1 tablet under the tongue every 5 minutes as needed for Chest Pain. atorvastatin (LIPITOR) 40 mg tablet Take 0.5 tablets by mouth daily at bedtime. For cholesterol. potassium chloride (K-TAB) 10 mEq tablet Take 2 tablets by mouth daily with breakfast. clopidogrel (PLAVIX) 75 mg tablet Take 1 tablet by mouth once daily. metoprolol tartrate, short acting, (LOPRESSOR) 50 mg tablet Take 0.5 tablets by mouth every 12 hours. warfarin (COUMADIN) 5 mg tablet Take 5 mg daily or as directed warfarin (COUMADIN) 5 mg tablet TAKE 1 TABLET BY MOUTH EVERY DAY OR DIRECTED hyalur ac/chond sul/colg II/AA (HYALURONIC ACID, CHOND-COLLGN, ORAL) Take 1 tablet by mouth three times daily. tamsulosin ER (FLOMAX) 0.4 mg cp24 Take 1 capsule by mouth daily at bedtime. Gilbert-3 Fatty Acids (FISH OIL) 500 mg cap Take 500 mg by mouth once daily. Methylsulfonylmethane (MSM) 1,000 mg tab Take 1 tablet by mouth twice daily. aspirin, enteric coated (ASPIR-LOW) 81 mg EC tablet Take 1 tablet by mouth once daily. ascorbic acid, vitamin C, (VITAMIN C) 500 mg tablet Take 1,000 mg by mouth once daily. UBIDECARENONE/VITAMIN E MIXED (COQ10 SG 100 ORAL) Take by mouth once daily. senna-docusate (SENNA-S) 8.6-50 mg per tablet Take 1 tablet by mouth twice daily. (Patient taking differently: Take 1 tablet by mouth as needed. ) acetaminophen (TYLENOL) 325 mg ORAL tablet Take 650 mg by mouth every 6 hours as needed. CALCIUM CARBONATE (CALCIUM 500 ORAL) Take by mouth once daily. GLUC HCL/CSANA/GLY-AM-GLY,MX/C ([id number] GLYCN- C ORAL) Take 1 tablet by mouth once daily. MULTIVITAMIN ORAL TAB Take one(1) tablet daily. No current facility-administered medications for this visit. Review of Systems Constitutional: Negative. Respiratory: Negative. Cardiovascular: Negative. Gastrointestinal: Negative. Genitourinary: Negative. Musculoskeletal: Positive for arthralgias and gait problem. Neurological: Negative for dizziness, seizures, syncope and headaches. Psychiatric/Behavioral: Negative for hallucinations. Objective BP 132/76 (BP Site: Left Arm, BP Position: Sitting, BP Cuff Size: Regular Adult) Pulse 60 Temp (!) 35.9 ?C (96.7 ?F) (Left Tympanic) Resp 12 Wt 77.1 kg (170 lb) BMI 27.86 kg/m? Physical Exam Constitutional: No distress. HENT: Head: Atraumatic. Eyes: Conjunctivae are normal. No scleral icterus. Neck: No JVD present. Cardiovascular: Normal rate, regular rhythm, S1 normal and S2 normal. Exam reveals no gallop. No murmur heard. Pulmonary/Chest: Breath sounds normal. Abdominal: Soft. Musculoskeletal: He exhibits no edema. Right knee: He exhibits deformity and LCL laxity. Left knee: He exhibits deformity. He exhibits no LCL laxity and no MCL laxity. Knees with nonspecific tenderness, bilateral varus deformities. Assessment and Plan 1. Arthritis of both knees - ICD9: 716.96, ICD10: M17.0 (primary diagnosis) - XR KNEE GENERAL 4V AP BOTH/PA BOTH/LAT/MERC BILAT - He will schedule with a [facility] accounting software specialist of his choice, with the help of his relative. 2. Need for vaccination - ICD9: V05.9, ICD10: Z23 - ADMIN OF INFLUENZA VACCINE - INFLUENZA SEASONAL HIGH DOSE AGE 65+ 3. Congestive heart failure, unspecified HF chronicity, unspecified heart failure type (HCC) - ICD9: 428.0, ICD10: I50.9 Stable. - FUROSEMIDE 40 MG TABLET 4. Postherpetic neuralgia - ICD9: 053.19, ICD10: B02.29 Wean off medication. - GABAPENTIN 100 MG CAPSULE 5. Medication side effects - ICD9: 995.20, ICD10: T88.7XXA Wean off gabapentin. 6. Essential hypertension - ICD9: 401.9, ICD10: I10 - good control - Continue current medication(s) 7. Atrial fibrillation, unspecified type (HCC) - ICD9: 427.31, ICD10: I48.91 See anticoagulation encounter. Polo Mitchell MD Referring Provider: SELF [200] Allergies As of Date: 09/01/2018 Noted Allergy Reaction NO KNOWN ALLERGIES 04/12/2004 Comments: nkda Date Reviewed: 09/01/2018 Reviewed by: Jaylin Huitron LPN - Fully Assessed Reason for Visit: Recheck [92] Primary Visit Diagnosis:Arthritis of both knees [M17.0] Other Visit Diagnoses:Need for vaccination [Z23] Congestive heart failure, unspecified HF chronicity, unspecified heart failure type (HCC) [I50.9] Postherpetic neuralgia [B02.29] Medication side effects [T88.7XXA] Essential hypertension [I10] Atrial fibrillation, unspecified type (HCC) [I48.91] Order(s):ADMIN OF INFLUENZA VACCINE [[id number]] Order #: [id number]: 1 INFLUENZA SEASONAL HIGH DOSE AGE 65+ [[id number]] Order #: [id number] furosemide (LASIX) 40 mg tabletTake 1 tablet by mouth once daily.Disp: 90 tabletRfl: 1 gabapentin (NEURONTIN) 100 mg capsule1 capsule daily x 14 days, then 1 capsule every other day for 14 days, then stop.Disp: Rfl: XR KNEE GENERAL 4V AP BOTH/PA BOTH/LAT/MERC BILAT [[id number]] Order #: [id number] FUTURE Prescriptions as of 09/01/2018 Sig: FUROSEMIDE 40 MG TABLET Take 1 tablet by mouth once d* GABAPENTIN 100 MG CAPSULE 1 capsule daily x 14 days, th* NITROGLYCERIN 0.4 MG SUBLINGU* Dissolve 1 tablet under the t* ATORVASTATIN 40 MG TABLET Take 0.5 tablets by mouth lefty* POTASSIUM CHLORIDE ER 10 MEQ * Take 2 tablets by mouth daily* CLOPIDOGREL 75 MG TABLET Take 1 tablet by mouth once d* METOPROLOL TARTRATE 50 MG TAB* Take 0.5 tablets by mouth kieran* WARFARIN 5 MG TABLET Take 5 mg daily or as directed WARFARIN 5 MG TABLET TAKE 1 TABLET BY MOUTH EVERY * HYALURONIC ACID (CHOND-COLLGN* Take 1 tablet by mouth three * TAMSULOSIN 0.4 MG CAPSULE Take 1 capsule by mouth daily* OMEGA-3 FATTY ACIDS 500 MG CA* Take 500 mg by mouth once lefty* METHYLSULFONYLMETHANE 1,000 M* Take 1 tablet by mouth twice * ASPIRIN 81 MG TABLET,DELAYED * Take 1 tablet by mouth once d* ASCORBIC ACID (VITAMIN C) 500* Take 1,000 mg by mouth once d* COQ10 SG 100 ORAL Take by mouth once daily. SENNOSIDES 8.6 MG-DOCUSATE SO* Take 1 tablet by mouth twice * Patient taking differently: Take 1 tablet by mouth as nee* * ACETAMINOPHEN 325 MG TABLET Take 650 mg by mouth every 6 * CALCIUM 500 ORAL Take by mouth once daily. * [id number] GLYCN-* Take 1 tablet by mouth once d* * MULTIVITAMIN TABLET Take one(1) tablet daily. 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 CAD (coronary artery disease), cachil dehe coronary *INVALID FOR* More... Acute, but ill-defined, cerebrovascular disease*INVALID FOR*02/02/2017 Hyperlipidemia [E78.5] INVALID FOR* More... More... Valvular heart disease [I38] INVALID FOR*02/02/2017 More... Atrial Fibrillation on Coumadin [I48.91] INVALID FOR* Asthma [J45.909] INVALID FOR*02/02/2017 Priority: B More... BPH with urinary obstruction [N40.1, N13.8] INVALID FOR* Essential hypertension [I10] INVALID FOR* Abnormal stress test [R94.39] INVALID FOR*08/27/2016 More... Pre-operative cardiovascular examination [Z01.8*INVALID FOR*09/26/2016 Aortic stenosis s/p transapical AVR [I35.0] INVALID FOR* More... Preop testing [Z01.818] INVALID FOR*09/26/2016 More... Atelectasis [J98.11] INVALID FOR*02/02/2017 Priority: B More... More... SUMMARY INVALID FOR*02/02/2017 Priority: Mild More... Discharge planning issues [Z02.9] INVALID FOR*09/26/2016 Priority: D More... 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] INVALID FOR* Hyponatremia [E87.1] INVALID FOR*04/07/2018 Congestive heart failure (HCC) [I50.9] INVALID FOR* Postherpetic neuralgia [B02.29] INVALID FOR* Visit Notes: >> Jaylin Huitron LPN ThuSep 01, 2018 4:46 PM Status: Signed Influenza Vaccine Documentation: ? Patient is identified by name and date of : Yes ? Patient is older than 6 months of age: Yes ? Patient denies a severe allergy to any vaccine component or to a previous dose of influenza vaccine: Yes FOR EGG ALLERGY CONCERNS, REFER TO PROVIDER. ? Denies allergy to gelatin, formaldehyde, thimerosol :Yes ? Patient is afebrile and not moderately or severely ill: Yes ? Does the patient have a history of Guillain ?[place] Syndrome (a severe paralytic illness): No ? Denies bone marrow transplant prior 6 months or solid organ transplant prior 3 months: Yes ? Denies a history of fainting after a prior injection or medical procedure? Yes If patient has fainted in the past, the CDC recommends sitting or lying down for 15 minutes after the vaccination. ? VIS sheet provided: Yes ? See Immunization Form in EpicCare for details of immunizations administered today. If patient reports dizziness, vision changes or ringing in the ears post vaccination ? please have patient sit or lie down for 15 minutes. Prescriptions ordered this encounter Disp Refills Start End FUROSEMIDE 40 MG TABLET 90 t* 1 09/01/2018 Route: ORAL Sig: Take 1 tablet by mouth once daily. GABAPENTIN 100 MG CAPSULE 08/26/2018 09/25/2018 Class: Med Update Si capsule daily x 14 days, then 1 capsule every other day for 14 days, then stop. Medications Discontinued During This Encounter albuterol HFA (PROVENTIL HFA) 90 mcg* 1 In* 5 12/15/2017 09/01/2018 Class: Print RX Route: INHALATION Sig: Inhale 2 Puffs as instructed every 6 hours as needed. Patient not taking: Reported on 09/01/2018 Disc: Reason for discontinue is not on file. furosemide (LASIX) 40 mg tablet 90 t* 0 07/12/2018 09/01/2018 Route: ORAL Sig: Take 1 tablet by mouth once daily. Disc: Reason for discontinue is not on file. gabapentin (NEURONTIN) 100 mg capsule 60 c* 5 06/15/2018 09/01/2018 Sig: TAKE 1 CAPSULE BY MOUTH TWICE DAILY FOR SHINGLES PAIN. Disc: Reason for discontinue is not on file. Disposition: Return in about 4 months (around 12/30/2018). Follow-up and Disposition History Recorded Encounter Status:Closed by POLO MITCHELL MD on 09/02/18 PROGRESS Observed: 09/01/2018 Status: COMPLETED Source: ANMO[place] 3:38 PM [facility] REPOSITORY HNO ID: [id number] Author: Shea Ramirez RN Service: (none) Author Type: (none) Type: Progress Notes Filed: 09/01/2018 3:40 PM Note Text: Patient had INR completed at [facility] Patient's INR is 1.7 Patient is currently taking 7.5mg TuTh, 5mg all other days Patient's last dose change was 02/09/18 due to low INR at 1.6 Patient has had no medication and had can of spinach and V8 juice last night. Advised patient that they would be contacted regarding medication dose and follow-up once reviewed by provider. After provider review, please contact patient with information and schedule follow-up appointment with coumadin clinic. Currently scheduled for 2 week follow up. Patient seeing PCP today for appt. INDIGO Observed: 08/26/2018 Status: COMPLETED Source: ANMOORE 12:00 AM [facility] REPOSITORY Telephone (INTMWS) SEBASSIMA ([id number]) 1935 M TXT Date Time Provider Department 08/26/18 POLO MITCHELL During your visit today, we recorded the following information about you: Ct Nichole, RN, RN 08/26/2018 4:11 PM Signed Pt calls, stating he has been on gabapentin for shingles pain. Pt states he is having side effects and would like to know how to wean off of medication. Pt states he can't sleep at night and has occ hallucinations. Confirmed pt is taking 100 mg BID. Pt reports still having shingles pain as well. Danette Perry, 08/26/2018 9:55 PM Signed Reduce capsule to one po daily X 14 days, the one po q 2 days x 14 days , then stop Please alert the patient to this recommendation Freda Braden 08/27/2018 9:12 AM Signed Patient is aware. No further questions at this time. Has an appt next week. Allergies As of Date: 08/26/2018 Noted Allergy Reaction NO KNOWN ALLERGIES 04/12/2004 Comments: nkda Date Reviewed: 04/07/2018 Reviewed by: Jaylin Huitron LPN - Fully Assessed Reason for Visit: Gabapentin [Other] Prescriptions as of 08/26/2018 Sig: ATORVASTATIN 40 MG TABLET Take 0.5 tablets by mouth lefty* FUROSEMIDE 40 MG TABLET Take 1 tablet by mouth once d* POTASSIUM CHLORIDE ER 10 MEQ * Take 2 tablets by mouth daily* GABAPENTIN 100 MG CAPSULE TAKE 1 CAPSULE BY MOUTH TWICE* CLOPIDOGREL 75 MG TABLET Take 1 tablet by mouth once d* METOPROLOL TARTRATE 50 MG TAB* Take 0.5 tablets by mouth kieran* WARFARIN 5 MG TABLET Take 5 mg daily or as directed WARFARIN 5 MG TABLET TAKE 1 TABLET BY MOUTH EVERY * HYALURONIC ACID (CHOND-COLLGN* Take 1 tablet by mouth three * TAMSULOSIN 0.4 MG CAPSULE Take 1 capsule by mouth daily* ALBUTEROL SULFATE HFA 90 MCG/* Inhale 2 Puffs as instructed * OMEGA-3 FATTY ACIDS 500 MG CA* Take 500 mg by mouth once lefty* METHYLSULFONYLMETHANE 1,000 M* Take 1 tablet by mouth twice * ASPIRIN 81 MG TABLET,DELAYED * Take 1 tablet by mouth once d* ASCORBIC ACID (VITAMIN C) 500* Take 1,000 mg by mouth once d* CALCIUM 500 ORAL Take by mouth once daily. COQ10 SG 100 ORAL Take by mouth once daily. SENNOSIDES 8.6 MG-DOCUSATE SO* Take 1 tablet by mouth twice * NITROGLYCERIN 0.4 MG SUBLINGU* Dissolve 1 tablet under the t* * SJDPNFJA-ZATVVUJTYU-JY GLYCN-* Take 1 tablet by mouth once d* * ACETAMINOPHEN 325 MG TABLET Take 650 mg by mouth every 6 * * MULTIVITAMIN TABLET Take one(1) tablet daily. Problem List As Of Date 08/26/2018 Noted Resolved Dissection of Aorta, Abdominal [I71.02] INVALID FOR*08/27/2016 More... CAD (coronary artery disease), cachil dehe coronary *INVALID FOR* More... Acute, but ill-defined, cerebrovascular disease*INVALID FOR*02/02/2017 Hyperlipidemia [E78.5] INVALID FOR* More... More... Valvular heart disease [I38] INVALID FOR*02/02/2017 More... Atrial Fibrillation on Coumadin [I48.91] INVALID FOR* Asthma [J45.909] INVALID FOR*02/02/2017 Priority: B More... BPH with urinary obstruction [N40.1, N13.8] INVALID FOR* Essential hypertension [I10] INVALID FOR* Abnormal stress test [R94.39] INVALID FOR*08/27/2016 More... Pre-operative cardiovascular examination [Z01.8*INVALID FOR*09/26/2016 Aortic stenosis s/p transapical AVR [I35.0] INVALID FOR* More... Preop testing [Z01.818] INVALID FOR*09/26/2016 More... Atelectasis [J98.11] INVALID FOR*02/02/2017 Priority: B More... More... SUMMARY INVALID FOR*02/02/2017 Priority: Mild More... Discharge planning issues [Z02.9] INVALID FOR*09/26/2016 Priority: D More... detention current use of anticoagulant [Z79.01]*INVALID FOR* Anemia [D64.9] INVALID FOR* Gait abnormality [R26.9] INVALID FOR* Arthritis of both knees [M17.0] INVALID FOR* Hyponatremia [E87.1] INVALID FOR*04/07/2018 Congestive heart failure (HCC) [I50.9] INVALID FOR* Postherpetic neuralgia [B02.29] INVALID FOR* Encounter Status:Closed by DANETTE PERRY on 08/26/18 PROGRESS Observed: 08/05/2018 Status: COMPLETED Source: AN[place] 4:35 PM [facility] REPOSITORY HNO ID: [id number] Author: Polo Mitchell Service: (none) Author Type: Physician Type: Progress Notes Filed: 08/05/2018 4:35 PM Note Text: Okay. PROGRESS Observed: 08/05/2018 Status: COMPLETED Source: [place] 3:58 PM [facility] REPOSITORY HNO ID: [id number] Author: Lorna Mata RN Service: (none) Author Type: (none) Type: Progress Notes Filed: 08/05/2018 3:59 PM Note Text: patient had inr completed at [facility] patients inr is 2.6 (patients inr range is 2.0-3.0) patient is currently taking 7.5mg Tues,thurs, and 5mg all other days patients last dose change was on 02/09/18 due to a low level of 1.6 (dose at that time was 5mg daily) patient has had no changes in medication and no missed doses and no change in diet Advised patient to continue on the same dose(s) and that they would only be contacted regarding dosage and follow up instructions after review with provider, if a change is needed. Written instructions given and patient verbalized understanding. Presently scheduled in 4 weeks (09/01/18 - appt with pcp also this day) for follow up INR. PROGRESS Observed: 07/08/2018 Status: COMPLETED Source: [place] 4:57 PM [facility] REPOSITORY HNO ID: [id number] Author: Polo Mitchell Service: (none) Author Type: Physician Type: Progress Notes Filed: 07/08/2018 4:57 PM Note Text: Okay. PROGRESS Observed: 07/08/2018 Status: COMPLETED Source: [place] 4:49 PM [facility] REPOSITORY HNO ID: [id number] Author: Kiya Cannon Service: (none) Author Type: Registered Nurse Type: Progress Notes Filed: 07/08/2018 4:50 PM Note Text: PRIMARY CARE COORDINATION CHART REVIEW Patient identified for Care Coordination from: ACO Report Last PCP office visit: 04/07/2018 Next OV: Visit date not found CHRONIC DX: CAD- controlled CARE GAPS: None UTILIZATION WITHIN THE LAST 12 MONTHS: ? ED: no ? HOSPITAL: no ? SNF: no PRIMARY CARE COORDINATION OUTREACH PLAN: No Care Coordination needs at this time Kiya Cannon rail maintenance worker Insurance Sales Specialist Internal Medicine [facility] PROGRESS Observed: 07/08/2018 Status: COMPLETED Source: [place] 2:59 PM [facility] REPOSITORY HNO ID: [id number] Author: Lorna Mata RN Service: (none) Author Type: (none) Type: Progress Notes Filed: 07/08/2018 3:00 PM Note Text: patient had inr completed at [facility] patients inr is 2.9 (patients inr range is 2.0-3.0) patient is currently taking 7.5mg Tues,Thurs and 5mg all other days patients last dose change was on 02/09/18 due to a lowl level of 1.6 (dose at that time ws 5mg daily) patient has had no changes in medication and no missed doses and no change in diet Advised patient to continue on the same dose(s) and that they would only be contacted regarding dosage and follow up instructions after review with provider, if a change is needed. Written instructions given and patient verbalized understanding. Presently scheduled in 4 weeks (08/05/18) for follow up INR. CNPTOUTREACH Observed: 07/08/2018 Status: COMPLETED Source: [place] 12:00 AM [facility] REPOSITORY Patient Outreach (INTMWS) SIMA MULLEN ([id number]) 1935 M TXT Date Time Provider Department 07/08/18 KIYA CASE During your visit today, we recorded the following information about you: Kiya Drew RN 07/08/2018 4:50 PM Signed PRIMARY CARE COORDINATION CHART REVIEW Patient identified for Care Coordination from: ACO Report Last PCP office visit: 04/07/2018 Next OV: Visit date not found CHRONIC DX: CAD- controlled CARE GAPS: None UTILIZATION WITHIN THE LAST 12 MONTHS: ? ED: no ? HOSPITAL: no ? SNF: no PRIMARY CARE COORDINATION OUTREACH PLAN: No Care Coordination needs at this time Kiya Cannon RN Ambulatory Insurance Sales Specialist Internal Medicine [facility] Allergies As of Date: 07/08/2018 Noted Allergy Reaction NO KNOWN ALLERGIES 04/12/2004 Comments: nkda Date Reviewed: 04/07/2018 Reviewed by: Jaylin Huitron LPN - Fully Assessed Reason for Visit: Insurance Sales Specialist Chronic Care [8701] Prescriptions as of 07/08/2018 Sig: POTASSIUM CHLORIDE ER 10 MEQ * Take 2 tablets by mouth daily* GABAPENTIN 100 MG CAPSULE TAKE 1 CAPSULE BY MOUTH TWICE* CLOPIDOGREL 75 MG TABLET Take 1 tablet by mouth once d* METOPROLOL TARTRATE 50 MG TAB* Take 0.5 tablets by mouth kieran* FUROSEMIDE 40 MG TABLET Take 1 tablet by mouth once d* WARFARIN 5 MG TABLET Take 5 mg daily or as directed WARFARIN 5 MG TABLET TAKE 1 TABLET BY MOUTH EVERY * HYALURONIC ACID (CHOND-COLLGN* Take 1 tablet by mouth three * TAMSULOSIN 0.4 MG CAPSULE Take 1 capsule by mouth daily* ALBUTEROL SULFATE HFA 90 MCG/* Inhale 2 Puffs as instructed * OMEGA-3 FATTY ACIDS 500 MG CA* Take 500 mg by mouth once lefty* METHYLSULFONYLMETHANE 1,000 M* Take 1 tablet by mouth twice * ASPIRIN 81 MG TABLET,DELAYED * Take 1 tablet by mouth once d* ASCORBIC ACID (VITAMIN C) 500* Take 1,000 mg by mouth once d* CALCIUM 500 ORAL Take by mouth once daily. COQ10 SG 100 ORAL Take by mouth once daily. SENNOSIDES 8.6 MG-DOCUSATE SO* Take 1 tablet by mouth twice * ATORVASTATIN 40 MG TABLET Take 0.5 tablets by mouth lefty* NITROGLYCERIN 0.4 MG SUBLINGU* Dissolve 1 tablet under the t* * JLBTRSTG-BCQURERSUT-VY GLYCN-* Take 1 tablet by mouth once d* * ACETAMINOPHEN 325 MG TABLET Take 650 mg by mouth every 6 * * MULTIVITAMIN TABLET Take one(1) tablet daily. Problem List As Of Date 07/08/2018 Noted Resolved Dissection of Aorta, Abdominal [I71.02] INVALID FOR*08/27/2016 More... CAD (coronary artery disease), cachil dehe coronary *INVALID FOR* More... Acute, but ill-defined, cerebrovascular disease*INVALID FOR*02/02/2017 Hyperlipidemia [E78.5] INVALID FOR* More... More... Valvular heart disease [I38] INVALID FOR*02/02/2017 More... Atrial Fibrillation on Coumadin [I48.91] INVALID FOR* Asthma [J45.909] INVALID FOR*02/02/2017 Priority: B More... BPH with urinary obstruction [N40.1, N13.8] INVALID FOR* Essential hypertension [I10] INVALID FOR* Abnormal stress test [R94.39] INVALID FOR*08/27/2016 More... Pre-operative cardiovascular examination [Z01.8*INVALID FOR*09/26/2016 Aortic stenosis s/p transapical AVR [I35.0] INVALID FOR* More... Preop testing [Z01.818] INVALID FOR*09/26/2016 More... Atelectasis [J98.11] INVALID FOR*02/02/2017 Priority: B More... More... SUMMARY INVALID FOR*02/02/2017 Priority: Mild More... Discharge planning issues [Z02.9] INVALID FOR*09/26/2016 Priority: D More... detention current use of anticoagulant [Z79.01]*INVALID FOR* Anemia [D64.9] INVALID FOR* Gait abnormality [R26.9] INVALID FOR* Arthritis of both knees [M17.0] INVALID FOR* Hyponatremia [E87.1] INVALID FOR*04/07/2018 Congestive heart failure (HCC) [I50.9] INVALID FOR* Postherpetic neuralgia [B02.29] INVALID FOR* Encounter Status:Closed by KIYA CANNON on 07/08/18 PROGRESS Observed: 06/23/2018 Status: COMPLETED Source: AN[place] 9:10 PM [facility] REPOSITORY HNO ID: [id number] Author: Polo Mitchell Service: (none) Author Type: Physician Type: Progress Notes Filed: 06/23/2018 9:11 PM Note Text: Okay. PROGRESS Observed: 06/23/2018 Status: COMPLETED Source: ANMOORE 3:04 PM [facility] REPOSITORY HNO ID: [id number] Author: Lorna Mata RN Service: (none) Author Type: (none) Type: Progress Notes Filed: 06/23/2018 3:05 PM Note Text: patient had inr completed at [facility] patients inr is 2.1 (patients inr range is 2.0-3.0) patient is currently taking 7.5mg Tues,Thurs and 5mg all other days patients last dose change was on 02/09/18 due to a low level of 1.6 (dose at that time was 5mg daily) patient has had no changes in medication and no missed doses and no change in diet Advised patient to continue on the same dose(s) and that they would only be contacted regarding dosage and follow up instructions after review with provider, if a change is needed. Written instructions given and patient verbalized understanding. Presently scheduled in 2 weeks (07/08/18) for follow up INR. PROGRESS Observed: 06/18/2018 Status: COMPLETED Source: ANMOORE 9:44 AM [facility] REPOSITORY HNO ID: [id number] Author: Mami Mancuso Cma Service: (none) Author Type: (none) Type: Progress Notes Filed: 06/23/2018 9:16 PM Note Text: Left detailed message on [employer] with all information. Asked patient to call office back to verify he received instructions. Mami Mancuso Cma PROGRESS Observed: 06/17/2018 Status: COMPLETED Source: ANMOORE 5:12 PM [facility] REPOSITORY HNO ID: [id number] Author: Polo Mitchell Service: (none) Author Type: Physician Type: Progress Notes Filed: 06/23/2018 9:16 PM Note Text: Continue Coumadin dose for now. INR in 1 week. PROGRESS Observed: 06/17/2018 Status: COMPLETED Source: AN[place]ORE 3:34 PM [facility] REPOSITORY HNO ID: [id number] Author: Lorna Mata RN Service: (none) Author Type: (none) Type: Progress Notes Filed: 06/17/2018 3:35 PM Note Text: patient had inr completed at [facility] patients inr is 3.2 (patients inr range is 2.0-3.0) patient is currently taking 7.5mg Tues,Thurs and 5mg all other days patients last dose change was on 02/09/18 due to a low level of 1.6 (dose at that time was 5mg daily) patient has had no changes in medication and no missed doses and no change in diet Advised patient that they would be contacted regarding medication dose and when to follow up after information is reviewed by provider. After provider review please contact the patient with information and schedule follow up appointment with coumadin clinic. FYI - patient has been scheduled for a 1 week follow up inr on 06/23/18 LIVER PROFILE Collected: 05/21/2018 Status: F Source: ROY 10:53 AM [facility] REPOSITORY TYPE CODE TESTS RESULT OUT OF RANGE REFERENCE UNITS LAB L501.1500 6.4-8.2 g/dL Low T PROT 5.9 LAB L501.1800 3.2-5.0 g/dL Low ALB 2.5 LAB L501.1950 2.2-4.2 g/dL Normal GLOB 3.4 LAB L501.4100 15-37 U/L Normal AST 21 LAB L501.4305 45-117 U/L Normal ALK P 73 LAB L501.4405 16-61 U/L Normal ALT 20 LAB L501.4600 0.20-1.00 mg/dL Normal T BILI 0.70 LAB L501.4700 0.00-0.30 mg/dL Normal D BILI 0.24 Performed By: #### L500.3400, L500.4100 #### [facility] [address] [place], [place], [id number] LIPID PROFILE Collected: 05/21/2018 Status: F Source: ROY 10:53 AM [facility] REPOSITORY TYPE CODE TESTS RESULT OUT OF RANGE REFERENCE UNITS LAB L501.4900 200 mg/dL Normal CHOL 118 Result Comment: <200 mg/dL Desirable 200-240 mg/dL Borderline >240 mg/dL High Risk LAB L501.5000 mg/dL Normal TRIG 78 Result Comment: The drugs N-Acetylcysteine and Metamizole may falsely depress this assay. Serum Triglycerides Reference Interval Normal <150 mg/dL Borderline high 150 - 199 mg/dL High 200 - 499 mg/dL Very High > or = 500 mg/dL LAB L501.6400 mg/dL Normal HDL 43 Result Comment: The drugs N-Acetylcysteine and Metamizole may falsely depress this assay. Reference Range HDL <40 mg/dL Low HDL Cholesterol HDL >or= 60 mg/dL High HDL Cholesterol LAB L501.6500 0-130 mg/dL Normal LDL 59 LAB L501.6600 5-40 mg/dL Normal VLDL 16 Performed By: #### L500.3400, L500.4100 #### [facility] [address] [place], [address] PROGRESS Observed: 05/20/2018 Status: COMPLETED Source: AN[place]ORE 5:40 PM [facility] REPOSITORY HNO ID: [id number] Author: Polo Mitchell Service: (none) Author Type: Physician Type: Progress Notes Filed: 05/20/2018 5:41 PM Note Text: Okay. PROGRESS Observed: 05/20/2018 Status: COMPLETED Source: AN[place] 3:35 PM [facility] REPOSITORY HNO ID: [id number] Author: Lorna Mata RN Service: (none) Author Type: (none) Type: Progress Notes Filed: 05/20/2018 3:36 PM Note Text: patient had inr completed at [facility] patients inr is 2.6 (patients inr range is 2.0-3.0) patient is currently taking 7.5mg Tues,Thurs and 5mg all other days patients last dose change was on 02/09/18 due to a low level of 2.2 (dose at that time was 5mg daily) patient has had no changes in medication and no missed doses and no change in diet Advised patient to continue on the same dose(s) and that they would only be contacted regarding dosage and follow up instructions after review with provider, if a change is needed. Written instructions given and patient verbalized understanding. Presently scheduled in 4 weeks (06/17/18) for follow up INR. CARDIOLOGY VISIT Observed: 05/17/2018 Status: F Source: ROY REPORT 4:03 PM [facility] REPOSITORY [facility] 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 He has had no concerning symptoms of ongoing chest discomfort at rest or with exertion. There has been no acute orthopnea or PND. He has an element of chronic lower extremity peripheral pitting edema especially of the right ankle area which has not changed. There is been no near syncope or syncope. He has had no unexplained fever, chills, or night sweats. He had a transthoracic echocardiogram performed at [facility] on 12/25/2017. Interpretation Summary Normal LV size. Left ventricular systolic function is normal. The estimated ejection fraction is 55 %. Unable to assess diastolic dysfunction. Mild to moderate (1-2+) tricuspid valve insufficiency. Stable appearing bioprosthetic aortic valve apparatus. Compared to the previous the WMA has improved and there is a bioprosthetic aortic valve He also had an abdominal CT scan performed on 12/10/2017. The comments regarding his abdominal aorta are as noted below There is diffuse atherosclerotic calcification of the abdominal aorta and its major visceral branches. Stable minimal dilatation of the distal abdominal aorta. 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 Normal inferior vena cava. Normal retroperitoneum. He has lost weight. He attributes it to his diuretic therapy. He states he is approaching his [employer] weight . He states he is eating. He has not intentionally trying to lose weight. He does state he is undergone colonoscopy in the past which was thought to be unremarkable. He states he was told he did not need one for several years. He admits that he may be approaching the time where he does need a follow-up colonoscopy. Intake Vital Signs05/17/18 Height 5 ft 8 in 05/17/18 Weight: 165 lb 05/17/18 Body Mass Index (BMI) 25.0 05/17/18 Blood Pressure 138/68 Intake Visit Reasons: 9 M FU Allergies No Known Allergies Allergy (Verified 05/17/18 15:14) Medications Atorvastatin Calcium [Lipitor] 20 mg PO QHS 10/21/15 [History Confirmed 05/17/18] Clopidogrel Bisulfate [Plavix] 75 mg PO DAILY 10/18/17 [History Confirmed 05/17/18] Aspirin [Aspirin, Baby] 81 mg PO QHS 12/10/17 [History Confirmed 05/17/18] Furosemide [Lasix] 40 mg PO DAILY #30 tab 12/26/17 [Rx Confirmed 05/17/18] Potassium Chloride 20 meq PO DAILY #60 tablet.er 12/26/17 [Rx Confirmed 05/17/18] Tamsulosin HCl [Flomax] 0.4 mg PO DAILY #30 cap 03/05/18 [Rx Confirmed 05/17/18] Warfarin Sodium 5 mg PO SUMOWEFRSA 03/05/18 [History Confirmed 05/17/18] Warfarin [Coumadin ([facility])] 7.5 mg PO TUTH 03/05/18 [History Confirmed 05/17/18] gabapentin 100 mg capsule 100 mg PO BID cap 05/17/18 [History Confirmed 05/17/18] metoprolol tartrate 50 mg tablet 25 mg PO BID tab 05/17/18 [History Confirmed 05/17/18] [facility] Medical History Nonrheumatic mitral (valve) insufficiency (Chronic) Nonrheumatic aortic (valve) stenosis (Chronic) History of myocardial infarction (Chronic) Left atrial thrombus (Chronic) History of peripheral vascular disease (Chronic) CVA (cerebral vascular accident) (Chronic) Hypertension (Chronic) Hyperlipidemia (Chronic) Afib (Chronic) CHF (congestive heart failure) (Acute) Aortic stenosis (Chronic) Hyponatremia (Chronic) CAD (coronary artery disease) (Chronic) Pulmonary HTN (Chronic) Aortic aneurysm (Chronic) Urinary hesitancy (Chronic) BPH (benign prostatic hyperplasia) (Chronic) Diverticulitis (Chronic) Surgical History History of cardioversion (Chronic 02/2006) Status post transcatheter aortic valve replacement (TAVR) using bioprosthesis (Chronic 08/27/16) History of coronary artery bypass graft (Chronic 03/2004) Family History Father , Age 57 Aortic aneurysm Mother , Age 56 Cancer Daughter Heart disease Social History Smoking Status: Former smoker pack-years: 15 alcohol intake: never ROS Const Const: Negative for fatigue, weakness, weight gain, weight loss, frequent falls or excessive sweating Eyes Eyes: Negative for change in vision, blurry vision or transient loss of vision ENT ENT: Positive for balance problems (ambulates with a cane); negative for dizziness Cardio Chest Pain: No Palpitations: No Edema: Right (+1 to Rt LE) Muscle aches with walking: None Resp Respiratory: Negative for SOB with activity or SOB at rest GI GI: Negative vomiting or vomiting blood/hematemesis : Negative for hematuria Musc Musc: Positive for balance problems (ambulates with a cane) and muscle weakness (HX Arthritis); negative for muscle aches/ myalgia or joint pain Skin Skin: Negative non-healing lesions or rash Neuro Neuro: Negative for weakness, blurry vision, dizziness, lightheadedness, frequent falls or orthostatic symptoms Martin Hematologic/Lymphatic: Negative for easy bleeding Endo Endo: Negative for fatigue or excessive sweating Psych Psych: Negative for anxiety or depression Allergy Allergy/Immunology: Negative for hives, Negative for rash Cardiology Exam Const Appearance: cooperative, comfortable, no acute distress and well groomed Nutritional Appearance: thin Orientation: alert, awake and oriented x3 Head Head: normal to inspection, normocephalic and atraumatic Ears: hearing grossly normal bilaterally Nose: external nose normal Face and Sinus: face symmetric Mouth: oral mucosae normal Eyes Eyelids: eyelids normal Conjunctivae: conjunctivae normal EOM: EOM intact bilaterally Neck Neck: normal visual inspection and full ROM Carotids: normal carotid upstroke Chest Chest inspection: normal inspection of the chest and symmetric chest movement Auscultation: Bilateral: Clear to Auscultation Cardio Palpation: normal PMI Rhythm: irregular rhythm Heart sounds: S1 normal and S2 normal Murmur: soft, mid systolic, LLSB, Grade 2/6, LVOT and sternal notch GI GI: normal to inspection, soft, no hepatosplenomegaly and bowel sounds present Neuro General: alert, awake and oriented x3 Skin Skin: no rashes or lesions noted Extremities Pulses: Normal: Right Radial Pulse, Left Radial Pulse Lower Extremity Edema: Trace: Right Psych Psychological: normal affect Supplemental Info Transthoracic echocardiogram: 12/25/2017: Interpretation Summary Normal LV size. Left ventricular systolic function is normal. The estimated ejection fraction is 55 %. Unable to assess diastolic dysfunction. Mild to moderate (1-2+) tricuspid valve insufficiency. Stable appearing bioprosthetic aortic valve apparatus. Compared to the previous the WMA has improved and there is a bioprosthetic aortic valve Stress nuclear imaging study: 02/26/2016: IMPRESSION: 1. Rest and stress SPECT Cardiolite nuclear imaging demonstrate myocardial perfusion changes appearing compatible with an area of previous myocardial injury/infarction involving portions of the basal inferolateral segments with associated myocardial perfusion changes appearing compatible with johnna-infarct related myocardial ischemia extending into the mid inferolateral segments. 2. The gated Cardiolite study reports an LVEF of 53%. Cardiac catheterization: [facility]: 01/15/2004: The left main coronary artery was reported as normal; the LAD had 90% stenosis followed by 60% stenosis; the diagonal branch had a 40% stenosis; the LCx had a 90% stenosis and a subsequent total occlusion; the RCA was a dominant vessel with total occlusion Open heart surgery report: [facility]: 03/26/2004: The patient received a LAI to the LAD, and SVG to the diagonal branch, and SVG to the OM, and an SVG to the PDA Aortic valve procedure: [facility]: 08/27/2016: The patient received a 26 mm Edward Eder and III valve Assessment AND Plan 1. CAD (coronary artery disease) I25.10 Plan At the present time the patient appears to be without any acute symptoms of his underlying CAD process. He will T new risk factor modification and medical management. 2. 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 Again he will continue his current medical therapy and follow-up. 3. 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 His most recent echocardiographic study is as noted above. He will continue AHA antibiotic prophylaxis. He will continue to be followed by history, exam, and echocardiogram 4. Permanent atrial fibrillation I48.2 Plan He does have underlying permanent atrial fibrillation. He appears to be on rate control therapy. He is anticoagulated without obvious complication. 5. CHF (congestive heart failure) I50.9 Plan He does not appear to have evidence of acute CHF or pulmonary edema at this time. He will monitor for any concerns. He will continue his medical management. 6. Hyperlipidemia, unspecified hyperlipidemia type E78.5 Plan He will be scheduled for future fasting lipid and hepatic profiles. Orders Orders: 7. Essential hypertension I10 Plan His blood pressure appears to be well controlled. Again he will continue medical therapy and follow-up. 8. Abdominal aortic aneurysm (AAA) without rupture I71.4 Plan His abdominal aorta was evaluated earlier this year as noted above. He will continue risk factor modification medical management. He will continue outpatient follow-up as deemed appropriate. Plan Detail Other Medications Discontinued: nitrofurantoin monohyd/m-cryst 100 mg Discontinued Sirse483 mg PO Q12 Lorna Miranda n: Pt no longer taking Additional Comments Thank you for allowing me to participate in the care of your patient. Please don't hesitate to call if any issues arise. This note was generated using a voice recognition system and there may be incorrect words, spelling or punctuation that were not noted when reviewing the office note prior to saving. Follow Up 6 Months (PFM) Coding Level of Care Code Off vis,est,level 4 Diagnoses CAD (coronary artery disease) I25.10 Coronary Disease-Associated Artery/Lesion type: [place] artery [place] vs. transplanted heart: [place] heart History of coronary artery bypass graft Z95.1 Status post transcatheter aortic valve replacement (TAVR) using bioprosthesis Z95.3 Permanent atrial fibrillation I48.2 Atrial fibrillation type: permanent CHF (congestive heart failure) I50.9 Heart failure type: unspecified Hyperlipidemia, unspecified hyperlipidemia type E78.5 Hyperlipidemia type: unspecified Essential hypertension I10 Hypertension type: essential hypertension Abdominal aortic aneurysm (AAA) without rupture I71.4 Aortic location: abdominal aorta Presence of rupture: without rupture Coding Level of Care Code Off vis,est,level 4 Diagnoses CAD (coronary artery disease) I25.10 Coronary Disease-Associated Artery/Lesion type: [place] artery [place] vs. transplanted heart: [place] heart History of coronary artery bypass graft Z95.1 Status post transcatheter aortic valve replacement (TAVR) using bioprosthesis Z95.3 Permanent atrial fibrillation I48.2 Atrial fibrillation type: permanent CHF (congestive heart failure) I50.9 Heart failure type: unspecified Hyperlipidemia, unspecified hyperlipidemia type E78.5 Hyperlipidemia type: unspecified Essential hypertension I10 Hypertension type: essential hypertension Abdominal aortic aneurysm (AAA) without rupture I71.4 Aortic location: abdominal aorta Presence of rupture: without rupture 05/17/18 1603 <Electronically signed by Wil Olivares MD> Date Wil Olivares MD Cosigner Signature: Date (if applicable) CC: Polo Mitchell MD PROGRESS Observed: 04/23/2018 Status: COMPLETED Source: ANMOORE 7:39 AM [facility] REPOSITORY HNO ID: [id number] Author: Zaynab Christopher Service: (none) Author Type: Nurse Practitioner Type: Progress Notes Filed: 04/23/2018 7:40 AM Note Text: Katrin Christopher, MAGGI PROGRESS Observed: 04/22/2018 Status: COMPLETED Source: ANMOORE 4:10 PM [facility] REPOSITORY HNO ID: [id number] Author: Lorna Mata RN Service: (none) Author Type: (none) Type: Progress Notes Filed: 04/22/2018 4:11 PM Note Text: patient had inr completed at [facility] patients inr is 2.9 (patients inr range is 2.0-3.0) patient is currently taking 7.5mg .Th and 5mg all other days patients last dose change was on 02/09/18 due to a low level of 1.6 (dose at that time was 5mg daily) patient has had no changes in medication and no missed doses and no change in diet Advised patient to continue on the same dose(s) and that they would only be contacted regarding dosage and follow up instructions after review with provider, if a change is needed. Written instructions given and patient verbalized understanding. Presently scheduled in 4 weeks (05/20/18) for follow up INR. PROGRESS Observed: 04/07/2018 Status: COMPLETED Source: ANMOORE 2:12 PM [facility] REPOSITORY HNO ID: [id number] Author: Polo Mitchell Service: (none) Author Type: Physician Type: Progress Notes Filed: 04/07/2018 2:23 PM Note Text: This note was created using [email or web address]. Subjective Sima Mullen is a 82 year old male here for follow up. He was doing well and had no new concerns. Neuralgia was much better on gabapentin, and no side effects were noted. His other conditions were controlled and stable. He emphatically declined need for vaccine. [facility] Review of Systems HENT: Negative. Eyes: Negative. Respiratory: Negative. Cardiovascular: Negative. Gastrointestinal: Negative. Genitourinary: Negative. Musculoskeletal: Positive for arthralgias and gait problem. Neurological: Positive for weakness. Negative for dizziness, tremors, light-headedness and headaches. Hematological: Negative. Psychiatric/Behavioral: Negative. ACTIVE PROBLEM LIST Cad (Coronary Artery Disease), [place] Coronary Artery Hyperlipidemia Atrial Fibrillation on Coumadin Bph With Urinary Obstruction Essential Hypertension Aortic stenosis s/p transapical AVR detention current use of anticoagulant [Z79.01] Anemia Gait Abnormality Arthritis of Both Knees Congestive Heart Failure (Hcc) Postherpetic Neuralgia Current Outpatient Prescriptions: hyalur ac/chond sul/colg II/AA (HYALURONIC ACID, CHOND-COLLGN, ORAL) Take 1 tablet by mouth three times daily. gabapentin (NEURONTIN) 100 mg capsule Take 1 capsule by mouth twice daily for 60 days. For shingles pain. tamsulosin ER (FLOMAX) 0.4 mg cp24 Take 1 capsule by mouth daily at bedtime. clopidogrel (PLAVIX) 75 mg tablet Take 1 tablet by mouth once daily. furosemide (LASIX) 40 mg tablet Take 1 tablet by mouth once daily. potassium chloride ER (K-DUR, KLOR-CON) 20 mEq tablet Take 1 tablet by mouth once daily. warfarin (COUMADIN) 5 mg tablet Take 5 mg daily or as directed albuterol HFA (PROVENTIL HFA) 90 mcg/actuation inhaler Inhale 2 Puffs as instructed every 6 hours as needed. Gilbert-3 Fatty Acids (FISH OIL) 500 mg cap Take 500 mg by mouth once daily. Methylsulfonylmethane (MSM) 1,000 mg tab Take 1 tablet by mouth twice daily. aspirin, enteric coated (ASPIR-LOW) 81 mg EC tablet Take 1 tablet by mouth once daily. ascorbic acid, vitamin C, (VITAMIN C) 500 mg tablet Take 1,000 mg by mouth once daily. CALCIUM CARBONATE (CALCIUM 500 ORAL) Take by mouth once daily. UBIDECARENONE/VITAMIN E MIXED (COQ10 SG 100 ORAL) Take by mouth once daily. metoprolol tartrate, short acting, (LOPRESSOR) 50 mg tablet Take 1 tablet by mouth every 12 hours. (Patient taking differently: Take 25 mg by mouth every 12 hours. ) senna-docusate (SENNA-S) 8.6-50 mg per tablet Take 1 tablet by mouth twice daily. atorvastatin (LIPITOR) 40 mg tablet Take 0.5 tablets by mouth daily at bedtime. For cholesterol. nitroglycerin sublingual 0.4 mg SL tablet Dissolve 1 tablet under the tongue every 5 minutes as needed for Chest Pain. acetaminophen (TYLENOL) 325 mg ORAL tablet Take 650 mg by mouth every 6 hours as needed. MULTIVITAMIN ORAL TAB Take one(1) tablet daily. GLUC HCL/CSANA/GLY-AM-GLY,MX/C (GIMPMNMN-RGTOOBXCJE-TH GLYCN- C ORAL) Take 1 tablet by mouth once daily. No current facility-administered medications for this visit. Objective BP 126/62 (BP Site: Left Arm, BP Position: Sitting, BP Cuff Size: Regular Adult) Pulse (!) 56 Temp (!) 35.8 ?C (96.5 ?F) (Left Tympanic) Resp 20 Ht 166.4 cm (5' 5.5) Wt 75.7 kg (166 lb 12.8 oz) BMI 27.33 kg/m? Physical Exam Constitutional: No distress. HENT: Head: Atraumatic. Eyes: Conjunctivae and EOM are normal. Pupils are equal, round, and reactive to light. Neck: No JVD present. Carotid bruit is not present. No thyromegaly present. Cardiovascular: S1 normal and S2 normal. An irregularly irregular rhythm present. Bradycardia present. Exam reveals no gallop. No murmur heard. Pulmonary/Chest: Breath sounds normal. He has no rales. Abdominal: Soft. He exhibits no mass. There is no tenderness. Musculoskeletal: He exhibits edema. Left knee: He exhibits no effusion, no LCL laxity and no MCL laxity. No tenderness found. Trace edema. Stasis pigmentation. Lymphadenopathy: He has no cervical adenopathy. Assessment and Plan 1. Medicare annual wellness visit, subsequent - ICD9: V70.0, ICD10: Z00.00 (primary diagnosis) See other note. 2. Aortic valve stenosis, etiology of cardiac valve disease unspecified - ICD9: 424.1, ICD10: I35.0 Stable. 3. Congestive heart failure, unspecified HF chronicity, unspecified heart failure type (HCC) - ICD9: 428.0, ICD10: I50.9 Stable. 4. Postherpetic neuralgia - ICD9: 053.19, ICD10: B02.29 Controlled. Refilled. Discussed medication dosage, usage, goals of therapy, and side effects. - GABAPENTIN 100 MG CAPSULE 5. 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 6. Essential hypertension - ICD9: 401.9, ICD10: I10 - good control 7. Hyperlipidemia, unspecified hyperlipidemia type - ICD9: 272.4, ICD10: E78.5 - good control Polo Mitchell MD PROGRESS Observed: 04/07/2018 Status: COMPLETED Source: ANMOORE 1:47 PM [facility] REPOSITORY [facility] ID: [id number] Author: Polo Mitchell Service: (none) Author Type: Physician Type: Progress Notes Filed: 04/07/2018 2:23 PM Note Text: Medicare Yearly Visit Medical B eligibilty date 05/19/2001 Date of last exam N/A PAST MEDICAL HISTORY Diagnosis Date - Acute myocardial infarction, unspecified site 2003 Myocardial Infarction - Acute, but ill-defined, cerebrovascular disease 2001 h/o right arm and leg paralysis, resolved - Anemia 08/04/2017 - Asthma 12/20/2009 - Atrial fibrillation (HCC) - Benign localized hyperplasia of prostate with urinary obstruction and other lower urinary tract symptoms (LUTS)(600.21) 12/20/2009 - Congestive heart failure (HCC) - CORONARY ATHEROSCLER UNSPEC VESSEL 02/28/2004 4 V CABG at age 69: done at the [facility] Creat 1.1 in 07-27 A1C 6.4% in 07-27 - DISSECTING ABDOM AORTIC ANEURYSM 02/28/2004 Being monitored as of 07-27: seeing Vascular in [place] Hct 43.9% in 07-27 - Diverticulosis of colon (without mention of hemorrhage) - HYPERLIPIDEMIA NEC/NOS 02/28/2004 LDL 78, HDL 35, TG 80 in 07-27 - Mixed hyperlipidemia 1984 Hyperlipidemia - Stroke (HCC) - Tobacco use disorder 08/08/2009 Smoked 1 ppd from about age [age] - Unspecified essential hypertension Essential hypertension - Valvular heart disease 12/20/2009 Mitral valve, Aortic stenosis. PAST SURGICAL HISTORY Procedure Laterality Date - CABG, ARTERY-VEIN, THREE March CABG, three grafts - COLONOSCOP W/ OR W/O [facility] SPEC 11/21/2009 Colonoscopy - PAST SURGICAL HISTORY OF Excision benign tumor-throat - REMOVE TONSILS/ADENOIDS,<12 Y/O Tonsil/adenoidectomy - REMV CATARACT EXTRACAP,INSERT LENS Cataract Extraction with PC IOL - TRANSCATHETER TRANSAPICAL REPLACEMT AORTIC VALVE 08/27/2016 Transapical implantation of #26 Eder S3 valve No Known Allergies Medications reviewed: Yes FAMILY HISTORY Problem Relation Age of Onset - Cancer Mother age 56 of (?) cancer - unknown [OTHER] Father age 56, 1 month post-op AAA repair - Heart Daughter age 24 of HOCM SOCIAL HISTORY: Social History Marital status: Spouse name: Years of education: Number of children: 2 Occupational History Occupation Employer Comment delivers alessandro[employer] Social History Main Topics Smoking status: Former Smoker Packs/day: 1.00 Years: 20.00 Types: Cigarettes Quit date: 10/19/1969 Smokeless tobacco: Never Used Comment: quit sometime in the early seven Alcohol use: Yes Comment: 1-2 times a month, maybe Drug use: No Sexual activity: No Social History Narrative Lives alone. Goes to [facility] in [place] for some medications. Sima is more or less sedentary occasionally exercising in the form of walking. He watches his diet for sodium, low fat and low cholesterol most of the time. List of current specialists seen: Dr. Taz Olivares, cardiology. End of Live Planning discussed including patients advanced directive wishes: Yes I am willing to follow Sima's advanced directives. Depression screen He in the past two weeks denies having felt down, depressed, hopeless or with little interest or pleasure in doing things. Functional Ability/Safety Screen 1. Was the patient's timed Up and Go test unsteady or longer than 30 seconds? No 2. Does the patient need help with the phone, transportation, shopping,preparing meals, housework, laundry, medications or managing money? No 3. Does your home have rugs in the hallway, lack of grab bars in the bathroom, lack of handrails on the stairs or have poor lighting? No Hearing Evaluation: normal PHYSICAL EXAM BP 126/62 (BP Site: Left Arm, BP Position: Sitting, BP Cuff Size: Regular Adult) Pulse (!) 56 Temp (!) 35.8 ?C (96.5 ?F) (Left Tympanic) Resp 20 Ht 166.4 cm (5' 5.5) Wt 75.7 kg (166 lb 12.8 oz) BMI 27.33 kg/m? Alert and oriented X 3: YES Body mass index is 27.33 kg/m?. Visual acuity: OD: 20/40 OS: 20/ 20 OU: 20/20 with glasses. ASSESSMENT/PLAN: 82 year old male The following prevention plan was discussed during the office visit and provided to the patient: - Fall avoidance - Vaccines recommended Tdap and Shingrix recommended and definitely declined. Polo Mitchell MD CNOV Observed: 04/07/2018 Status: COMPLETED Source: ANMOORE 1:20 PM [facility] REPOSITORY Office Visit (INTMWS) SIMA MULLEN ([id number]) 1935 M TXT Date Time Provider Department 04/07/18 1:20 PM POLO MITCHELL INTMWS During your visit today, we recorded the following information about you: Temperature Pulse Respiration Blood pressure 96.5 degrees 56/minute 20/minute 126/62 Weight Height 75.7 kg 1.664 m Polo Mitchell MD 04/07/2018 2:23 PM Signed Medicare Yearly Visit Medical B eligibilty date 05/19/2001 Date of last exam N/A PAST MEDICAL HISTORY Diagnosis Date - Acute myocardial infarction, unspecified site 2003 Myocardial Infarction - Acute, but ill-defined, cerebrovascular disease 2001 h/o right arm and leg paralysis, resolved - Anemia 08/04/2017 - Asthma 12/20/2009 - Atrial fibrillation (HCC) - Benign localized hyperplasia of prostate with urinary obstruction and other lower urinary tract symptoms (LUTS)(600.21) 12/20/2009 - Congestive heart failure (HCC) - CORONARY ATHEROSCLER UNSPEC VESSEL 02/28/2004 4 V CABG at age 69: done at the [facility] Creat 1.1 in 07-27 A1C 6.4% in 07-27 - DISSECTING ABDOM AORTIC ANEURYSM 02/28/2004 Being monitored as of 07-27: seeing [facility] in [place] Hct 43.9% in 07-27 - Diverticulosis of colon (without mention of hemorrhage) - HYPERLIPIDEMIA NEC/NOS 02/28/2004 LDL 78, HDL 35, TG 80 in 07-27 - Mixed hyperlipidemia 1984 Hyperlipidemia - Stroke (HCC) - Tobacco use disorder 08/08/2009 Smoked 1 ppd from about age [age] - Unspecified essential hypertension Essential hypertension - Valvular heart disease 12/20/2009 Mitral valve, Aortic stenosis. PAST SURGICAL HISTORY Procedure Laterality Date - CABG, ARTERY-VEIN, THREE March CABG, three grafts - COLONOSCOP W/ OR W/O [facility] SPEC 11/21/2009 Colonoscopy - PAST SURGICAL HISTORY OF Excision benign tumor-throat - REMOVE TONSILS/ADENOIDS,<12 Y/O Tonsil/adenoidectomy - REMV CATARACT EXTRACAP,INSERT LENS Cataract Extraction with PC IOL - TRANSCATHETER TRANSAPICAL REPLACEMT AORTIC VALVE 08/27/2016 Transapical implantation of #26 Eder S3 valve No Known Allergies Medications reviewed: Yes FAMILY HISTORY Problem Relation Age of Onset - Cancer Mother age 56 of (?) cancer - unknown [OTHER] Father age 56, 1 month post-op AAA repair - Heart Daughter age 24 of HOCM SOCIAL HISTORY: Social History Marital status: Spouse name: Years of education: Number of children: 2 Occupational History 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 Goes to [facility] in [place] for some medications. Sima is more or less sedentary occasionally exercising in the form of walking. He watches his diet for sodium, low fat and low cholesterol most of the time. List of current specialists seen: Dr. Taz Olivares, cardiology. End of Live Planning discussed including patients advanced directive wishes: Yes I am willing to follow Sima's advanced directives. Depression screen He in the past two weeks denies having felt down, depressed, hopeless or with little interest or pleasure in doing things. Functional Ability/Safety Screen 1. Was the patient's timed Up and Go test unsteady or longer than 30 seconds? No 2. Does the patient need help with the phone, transportation, shopping,preparing meals, housework, laundry, medications or managing money? No 3. Does your home have rugs in the hallway, lack of grab bars in the bathroom, lack of handrails on the stairs or have poor lighting? No Hearing Evaluation: normal PHYSICAL EXAM BP 126/62 (BP Site: Left Arm, BP Position: Sitting, BP Cuff Size: Regular Adult) Pulse (!) 56 Temp (!) 35.8 ?C (96.5 ?F) (Left Tympanic) Resp 20 Ht 166.4 cm (5' 5.5) Wt 75.7 kg (166 lb 12.8 oz) BMI 27.33 kg/m? Alert and oriented X 3: YES Body mass index is 27.33 kg/m?. Visual acuity: OD: 20/40 OS: 20/ 20 OU: 20/20 with glasses. ASSESSMENT/PLAN: 82 year old male The following prevention plan was discussed during the office visit and provided to the patient: - Fall avoidance - Vaccines recommended Tdap and Shingrix recommended and definitely declined. MD Polo Sterling MD 04/07/2018 2:23 PM Signed This note was created using [email or web address]. Subjective Sima Mullen is a 82 year old male here for follow up. He was doing well and had no new concerns. Neuralgia was much better on gabapentin, and no side effects were noted. His other conditions were controlled and stable. He emphatically declined need for vaccine. [facility] Review of Systems HENT: Negative. Eyes: Negative. Respiratory: Negative. Cardiovascular: Negative. Gastrointestinal: Negative. Genitourinary: Negative. Musculoskeletal: Positive for arthralgias and gait problem. Neurological: Positive for weakness. Negative for dizziness, tremors, light-headedness and headaches. Hematological: Negative. Psychiatric/Behavioral: Negative. ACTIVE PROBLEM LIST Cad (Coronary Artery Disease), [place] Coronary Artery Hyperlipidemia Atrial Fibrillation on Coumadin Bph With Urinary Obstruction Essential Hypertension Aortic stenosis s/p transapical AVR detention current use of anticoagulant [Z79.01] Anemia Gait Abnormality Arthritis of Both Knees Congestive Heart Failure (Hcc) Postherpetic Neuralgia Current Outpatient Prescriptions: hyalur ac/chond sul/colg II/AA (HYALURONIC ACID, CHOND-COLLGN, ORAL) Take 1 tablet by mouth three times daily. gabapentin (NEURONTIN) 100 mg capsule Take 1 capsule by mouth twice daily for 60 days. For shingles pain. tamsulosin ER (FLOMAX) 0.4 mg cp24 Take 1 capsule by mouth daily at bedtime. clopidogrel (PLAVIX) 75 mg tablet Take 1 tablet by mouth once daily. furosemide (LASIX) 40 mg tablet Take 1 tablet by mouth once daily. potassium chloride ER (K-DUR, KLOR-CON) 20 mEq tablet Take 1 tablet by mouth once daily. warfarin (COUMADIN) 5 mg tablet Take 5 mg daily or as directed albuterol HFA (PROVENTIL HFA) 90 mcg/actuation inhaler Inhale 2 Puffs as instructed every 6 hours as needed. Gilbert-3 Fatty Acids (FISH OIL) 500 mg cap Take 500 mg by mouth once daily. Methylsulfonylmethane (MSM) 1,000 mg tab Take 1 tablet by mouth twice daily. aspirin, enteric coated (ASPIR-LOW) 81 mg EC tablet Take 1 tablet by mouth once daily. ascorbic acid, vitamin C, (VITAMIN C) 500 mg tablet Take 1,000 mg by mouth once daily. CALCIUM CARBONATE (CALCIUM 500 ORAL) Take by mouth once daily. UBIDECARENONE/VITAMIN E MIXED (COQ10 SG 100 ORAL) Take by mouth once daily. metoprolol tartrate, short acting, (LOPRESSOR) 50 mg tablet Take 1 tablet by mouth every 12 hours. (Patient taking differently: Take 25 mg by mouth every 12 hours. ) senna-docusate (SENNA-S) 8.6-50 mg per tablet Take 1 tablet by mouth twice daily. atorvastatin (LIPITOR) 40 mg tablet Take 0.5 tablets by mouth daily at bedtime. For cholesterol. nitroglycerin sublingual 0.4 mg SL tablet Dissolve 1 tablet under the tongue every 5 minutes as needed for Chest Pain. acetaminophen (TYLENOL) 325 mg ORAL tablet Take 650 mg by mouth every 6 hours as needed. MULTIVITAMIN ORAL TAB Take one(1) tablet daily. GLUC HCL/CSANA/GLY-AM-GLY,MX/C (BEYZMIRP-OUKGZNDTOW-DO GLYCN- C ORAL) Take 1 tablet by mouth once daily. No current facility-administered medications for this visit. Objective BP 126/62 (BP Site: Left Arm, BP Position: Sitting, BP Cuff Size: Regular Adult) Pulse (!) 56 Temp (!) 35.8 ?C (96.5 ?F) (Left Tympanic) Resp 20 Ht 166.4 cm (5' 5.5) Wt 75.7 kg (166 lb 12.8 oz) BMI 27.33 kg/m? Physical Exam Constitutional: No distress. HENT: Head: Atraumatic. Eyes: Conjunctivae and EOM are normal. Pupils are equal, round, and reactive to light. Neck: No JVD present. Carotid bruit is not present. No thyromegaly present. Cardiovascular: S1 normal and S2 normal. An irregularly irregular rhythm present. Bradycardia present. Exam reveals no gallop. No murmur heard. Pulmonary/Chest: Breath sounds normal. He has no rales. Abdominal: Soft. He exhibits no mass. There is no tenderness. Musculoskeletal: He exhibits edema. Left knee: He exhibits no effusion, no LCL laxity and no MCL laxity. No tenderness found. Trace edema. Stasis pigmentation. Lymphadenopathy: He has no cervical adenopathy. Assessment and Plan 1. Medicare annual wellness visit, subsequent - ICD9: V70.0, ICD10: Z00.00 (primary diagnosis) See other note. 2. Aortic valve stenosis, etiology of cardiac valve disease unspecified - ICD9: 424.1, ICD10: I35.0 Stable. 3. Congestive heart failure, unspecified HF chronicity, unspecified heart failure type (HCC) - ICD9: 428.0, ICD10: I50.9 Stable. 4. Postherpetic neuralgia - ICD9: 053.19, ICD10: B02.29 Controlled. Refilled. Discussed medication dosage, usage, goals of therapy, and side effects. - GABAPENTIN 100 MG CAPSULE 5. 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 6. Essential hypertension - ICD9: 401.9, ICD10: I10 - good control 7. Hyperlipidemia, unspecified hyperlipidemia type - ICD9: 272.4, ICD10: E78.5 - good control Polo Mitchell MD Referring Provider: POLO MITCHELL [[id number]] Allergies As of Date: 04/07/2018 Noted Allergy Reaction NO KNOWN ALLERGIES 04/12/2004 Comments: nkda Date Reviewed: 04/07/2018 Reviewed by: Jaylin Huitron LPN - Fully Assessed Reason for Visit: Yearly Exam [187] Primary Visit Diagnosis:Medicare annual wellness visit, subsequent [Z00.00] Other Visit Diagnoses:Aortic valve stenosis, etiology of cardiac valve disease unspecified [I35.0] Congestive heart failure, unspecified HF chronicity, unspecified heart failure type (HCC) [I50.9] Postherpetic neuralgia [B02.29] 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 For shingles pain.Disp: 60 capsuleRfl: 1 Prescriptions as of 04/07/2018 Sig: HYALURONIC ACID (CHOND-COLLGN* Take 1 tablet by mouth three * GABAPENTIN 100 MG CAPSULE Take 1 capsule by mouth twice* TAMSULOSIN 0.4 MG CAPSULE Take 1 capsule by mouth daily* CLOPIDOGREL 75 MG TABLET Take 1 tablet by mouth once d* FUROSEMIDE 40 MG TABLET Take 1 tablet by mouth once d* POTASSIUM CHLORIDE ER 20 MEQ * Take 1 tablet by mouth once d* WARFARIN 5 MG TABLET Take 5 mg daily or as directed ALBUTEROL SULFATE HFA 90 MCG/* Inhale 2 Puffs as instructed * OMEGA-3 FATTY ACIDS 500 MG CA* Take 500 mg by mouth once lefty* METHYLSULFONYLMETHANE 1,000 M* Take 1 tablet by mouth twice * ASPIRIN 81 MG TABLET,DELAYED * Take 1 tablet by mouth once d* ASCORBIC ACID (VITAMIN C) 500* Take 1,000 mg by mouth once d* CALCIUM 500 ORAL Take by mouth once daily. COQ10 SG 100 ORAL Take by mouth once daily. METOPROLOL TARTRATE 50 MG TAB* Take 1 tablet by mouth every * Patient taking differently: Take 25 mg by mouth every 12 * SENNOSIDES 8.6 MG-DOCUSATE SO* Take 1 tablet by mouth twice * ATORVASTATIN 40 MG TABLET Take 0.5 tablets by mouth lefty* NITROGLYCERIN 0.4 MG SUBLINGU* Dissolve 1 tablet under the t* * ACETAMINOPHEN 325 MG TABLET Take 650 mg by mouth every 6 * * MULTIVITAMIN TABLET Take one(1) tablet daily. 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 CAD (coronary artery disease), cachil dehe coronary *INVALID FOR* More... Acute, but ill-defined, cerebrovascular disease*INVALID FOR*02/02/2017 Hyperlipidemia [E78.5] INVALID FOR* More... More... Valvular heart disease [I38] INVALID FOR*02/02/2017 More... Atrial Fibrillation on Coumadin [I48.91] INVALID FOR* Asthma [J45.909] INVALID FOR*02/02/2017 Priority: B More... BPH with urinary obstruction [N40.1, N13.8] INVALID FOR* Essential hypertension [I10] INVALID FOR* Abnormal stress test [R94.39] INVALID FOR*08/27/2016 More... Pre-operative cardiovascular examination [Z01.8*INVALID FOR*09/26/2016 Aortic stenosis s/p transapical AVR [I35.0] INVALID FOR* More... Preop testing [Z01.818] INVALID FOR*09/26/2016 More... Atelectasis [J98.11] INVALID FOR*02/02/2017 Priority: B More... More... SUMMARY INVALID FOR*02/02/2017 Priority: Mild More... Discharge planning issues [Z02.9] INVALID FOR*09/26/2016 Priority: D More... 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] INVALID FOR* Hyponatremia [E87.1] INVALID FOR*04/07/2018 Congestive heart failure (HCC) [I50.9] INVALID FOR* Postherpetic neuralgia [B02.29] INVALID FOR* Prescriptions ordered this encounter Disp Refills Start End GABAPENTIN 100 MG CAPSULE 60 c* 1 04/07/2018 06/06/2018 Route: ORAL Sig: Take 1 capsule by mouth twice daily for 60 days. For shingles pain. Medications Discontinued During This Encounter gabapentin (NEURONTIN) 100 mg capsule 60 c* 0 03/23/2018 04/07/2018 Route: ORAL Sig: Take 1 capsule by mouth twice daily for 30 days. For shingles pain. Disc: Reason for discontinue is not on file. Disposition: Return in about 5 months (around 09/07/2018). Follow-up and Disposition History Recorded Encounter Status:Closed by POLO MITCHELL MD on 04/07/18 PROGRESS Observed: 03/23/2018 Status: COMPLETED Source: [place] 4:58 PM [facility] REPOSITORY HNO ID: [id number] Author: Lorna Mata RN Service: (none) Author Type: (none) Type: Progress Notes Filed: 03/23/2018 4:58 PM Note Text: left message for pt to call to schedule soon appt PROGRESS Observed: 03/23/2018 Status: COMPLETED Source: ANMOORE 4:46 PM [facility] REPOSITORY HNO ID: [id number] Author: Polo Mitchell Service: (none) Author Type: Physician Type: Progress Notes Filed: 03/23/2018 4:58 PM Note Text: Continue Coumadin dose. INR in 2 weeks due to medication changes. PROGRESS Observed: 03/23/2018 Status: COMPLETED Source: ANMOORE 3:50 PM [facility] REPOSITORY HNO ID: [id number] Author: Lorna Mata RN Service: (none) Author Type: (none) Type: Progress Notes Filed: 03/23/2018 3:51 PM Note Text: patient had inr completed at [facility] patients inr is 2.8 (patients inr range is 2.0-3.0) patient is currently taking 7.5mg Tues,Thurs and 5mg all other days patients last dose change was on 02/09/18 due to a low level of 1.6 (dose at that time was 5mg daily) patient has had no changes in medication and no missed doses and no change in diet Advised patient to continue on the same dose(s) and that they would only be contacted regarding dosage and follow up instructions after review with provider, if a change is needed. Written instructions given and patient verbalized understanding. Presently scheduled in 4 weeks (04/20/18) for follow up INR. PROGRESS Observed: 03/23/2018 Status: COMPLETED Source: ANMOORE 1:46 PM [facility] REPOSITORY HNO ID: [id number] Author: Polo Mitchell Service: (none) Author Type: Physician Type: Progress Notes Filed: 03/23/2018 1:53 PM Note Text: This note was created using [email or web address]. Subjective Sima Mullen is a 82 year old male was in the ER for urinary tract infection and urine retention. He was started on tamsulosin with very good effect. He had no current symptoms. He had been on doxazosin which did not seem to do much. He was admitted for congestive heart failure in December. 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 Anticoagulation was monitored. Review of Systems Constitutional: Negative. Respiratory: Negative. Cardiovascular: Negative for chest pain, palpitations and leg swelling. Gastrointestinal: Negative. Genitourinary: Negative. Neurological: Discomfort in right upper back, right chest from shingles. ACTIVE PROBLEM LIST Cad (Coronary Artery Disease), [place] Coronary Artery Hyperlipidemia Atrial Fibrillation on Coumadin Bph With Urinary Obstruction Essential Hypertension Aortic stenosis s/p transapical AVR detention current use of anticoagulant [Z79.01] Anemia Gait Abnormality Arthritis of Both Knees Hyponatremia Congestive Heart Failure (Hcc) Postherpetic Neuralgia Current Outpatient Prescriptions: tamsulosin ER (FLOMAX) 0.4 mg cp24 Take 1 capsule by mouth daily at bedtime. furosemide (LASIX) 40 mg tablet Take 1 tablet by mouth once daily. potassium chloride ER (K-DUR, KLOR-CON) 20 mEq tablet Take 1 tablet by mouth once daily. warfarin (COUMADIN) 5 mg tablet Take 5 mg daily or as directed albuterol HFA (PROVENTIL HFA) 90 mcg/actuation inhaler Inhale 2 Puffs as instructed every 6 hours as needed. Gilbert-3 Fatty Acids (FISH OIL) 500 mg cap Take 500 mg by mouth once daily. Methylsulfonylmethane (MSM) 1,000 mg tab Take 1 tablet by mouth twice daily. aspirin, enteric coated (ASPIR-LOW) 81 mg EC tablet Take 1 tablet by mouth once daily. ascorbic acid, vitamin C, (VITAMIN C) 500 mg tablet Take 500 mg by mouth once daily. CALCIUM CARBONATE (CALCIUM 500 ORAL) Take by mouth once daily. UBIDECARENONE/VITAMIN E MIXED (COQ10 SG 100 ORAL) Take by mouth once daily. metoprolol tartrate, short acting, (LOPRESSOR) 50 mg tablet Take 1 tablet by mouth every 12 hours. senna-docusate (SENNA-S) 8.6-50 mg per tablet Take 1 tablet by mouth twice daily. atorvastatin (LIPITOR) 40 mg tablet Take 0.5 tablets by mouth daily at bedtime. For cholesterol. nitroglycerin sublingual 0.4 mg SL tablet Dissolve 1 tablet under the tongue every 5 minutes as needed for Chest Pain. GLUC HCL/CSANA/GLY-AM-GLY,MX/C (HQNNRHBO-BFKIEANVYZ-MF GLYCN- C ORAL) Take 1 tablet by mouth once daily. acetaminophen (TYLENOL) 325 mg ORAL tablet Take 650 mg by mouth every 6 hours as needed. MULTIVITAMIN ORAL TAB Take one(1) tablet daily. gabapentin (NEURONTIN) 100 mg capsule Take 1 capsule by mouth twice daily for 30 days. For shingles pain. No current facility-administered medications for this visit. Objective BP 122/70 (BP Site: Right Arm, BP Position: Sitting, BP Cuff Size: Regular Adult) Pulse (!) 56 Temp (!) 35.7 ?C (96.3 ?F) (Left Tympanic) Resp 16 Wt 76.2 kg (168 lb) BMI 25.54 kg/m? Physical Exam Constitutional: No distress. Cardiovascular: S1 normal and S2 normal. An irregular rhythm present. Exam reveals no gallop. No murmur heard. Pulmonary/Chest: Breath sounds normal. Abdominal: Soft. There is no tenderness. Musculoskeletal: He exhibits edema. Trace edema. Neurological: He is alert. Coordination normal. Ambulatory with cane. Skin: Scarring in right upper back from zoster. Assessment and Plan 1. Urinary tract infection without hematuria, site unspecified - ICD9: 599.0, ICD10: N39.0 (primary diagnosis) Resolved. 2. BPH with urinary obstruction - ICD9: 600.01, 599.69, ICD10: N40.1, N13.8 Continue FLOMAX. - TAMSULOSIN 0.4 MG CAPSULE - TAMSULOSIN 0.4 MG CAPSULE - Call for worsening symptoms off doxazosin. 3. Congestive heart failure, unspecified HF chronicity, unspecified heart failure type (HCC) - ICD9: 428.0, ICD10: I50.9 Discontinue DOXAZOSIN. 4. Postherpetic neuralgia - ICD9: 053.19, ICD10: B02.29 Treatment options, benefits, risks, and potential side effects were reviewed and discussed. - GABAPENTIN 100 MG CAPSULE Polo Mitchell MD CNOV Observed: 03/23/2018 Status: COMPLETED Source: ANMOORE 11:40 AM [facility] REPOSITORY Office Visit (INTMWS) SIMA MULLEN ([id number]) 1935 M TXT Date Time Provider Department 03/23/18 11:40 AM POLO MITCHELL INTMWS During your visit today, we recorded the following information about you: Temperature Pulse Respiration Blood pressure 96.3 degrees 56/minute 16/minute 122/70 Weight 76.2 kg Polo Mitchell MD 03/23/2018 12:23 PM Signed STOP DOXAZOSIN (CARDURA). Polo Mitchell MD 03/23/2018 1:53 PM Signed This note was created using [email or web address]. Subjective Sima Mullen is a 82 year old male was in the ER for urinary tract infection and urine retention. He was started on tamsulosin with very good effect. He had no current symptoms. He had been on doxazosin which did not seem to do much. He was admitted for congestive heart failure in December. 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 Anticoagulation was monitored. Review of Systems Constitutional: Negative. Respiratory: Negative. Cardiovascular: Negative for chest pain, palpitations and leg swelling. Gastrointestinal: Negative. Genitourinary: Negative. Neurological: Discomfort in right upper back, right chest from shingles. ACTIVE PROBLEM LIST Cad (Coronary Artery Disease), [place] Coronary Artery Hyperlipidemia Atrial Fibrillation on Coumadin Bph With Urinary Obstruction Essential Hypertension Aortic stenosis s/p transapical AVR terminal operator current use of anticoagulant [Z79.01] Anemia Gait Abnormality Arthritis of Both Knees Hyponatremia Congestive Heart Failure (Hcc) Postherpetic Neuralgia Current Outpatient Prescriptions: tamsulosin ER (FLOMAX) 0.4 mg cp24 Take 1 capsule by mouth daily at bedtime. furosemide (LASIX) 40 mg tablet Take 1 tablet by mouth once daily. potassium chloride ER (K-DUR, KLOR-CON) 20 mEq tablet Take 1 tablet by mouth once daily. warfarin (COUMADIN) 5 mg tablet Take 5 mg daily or as directed albuterol HFA (PROVENTIL HFA) 90 mcg/actuation inhaler Inhale 2 Puffs as instructed every 6 hours as needed. Gilbert-3 Fatty Acids (FISH OIL) 500 mg cap Take 500 mg by mouth once daily. Methylsulfonylmethane (MSM) 1,000 mg tab Take 1 tablet by mouth twice daily. aspirin, enteric coated (ASPIR-LOW) 81 mg EC tablet Take 1 tablet by mouth once daily. ascorbic acid, vitamin C, (VITAMIN C) 500 mg tablet Take 500 mg by mouth once daily. CALCIUM CARBONATE (CALCIUM 500 ORAL) Take by mouth once daily. UBIDECARENONE/VITAMIN E MIXED (COQ10 SG 100 ORAL) Take by mouth once daily. metoprolol tartrate, short acting, (LOPRESSOR) 50 mg tablet Take 1 tablet by mouth every 12 hours. senna-docusate (SENNA-S) 8.6-50 mg per tablet Take 1 tablet by mouth twice daily. atorvastatin (LIPITOR) 40 mg tablet Take 0.5 tablets by mouth daily at bedtime. For cholesterol. nitroglycerin sublingual 0.4 mg SL tablet Dissolve 1 tablet under the tongue every 5 minutes as needed for Chest Pain. GLUC HCL/CSANA/GLY-AM-GLY,MX/C (DHMPPXFA-BNTMLYERIK-LD GLYCN- C ORAL) Take 1 tablet by mouth once daily. acetaminophen (TYLENOL) 325 mg ORAL tablet Take 650 mg by mouth every 6 hours as needed. MULTIVITAMIN ORAL TAB Take one(1) tablet daily. gabapentin (NEURONTIN) 100 mg capsule Take 1 capsule by mouth twice daily for 30 days. For shingles pain. No current facility-administered medications for this visit. Objective BP 122/70 (BP Site: Right Arm, BP Position: Sitting, BP Cuff Size: Regular Adult) Pulse (!) 56 Temp (!) 35.7 ?C (96.3 ?F) (Left Tympanic) Resp 16 Wt 76.2 kg (168 lb) BMI 25.54 kg/m? Physical Exam Constitutional: No distress. Cardiovascular: S1 normal and S2 normal. An irregular rhythm present. Exam reveals no gallop. No murmur heard. Pulmonary/Chest: Breath sounds normal. Abdominal: Soft. There is no tenderness. Musculoskeletal: He exhibits edema. Trace edema. Neurological: He is alert. Coordination normal. Ambulatory with cane. Skin: Scarring in right upper back from zoster. Assessment and Plan 1. Urinary tract infection without hematuria, site unspecified - ICD9: 599.0, ICD10: N39.0 (primary diagnosis) Resolved. 2. BPH with urinary obstruction - ICD9: 600.01, 599.69, ICD10: N40.1, N13.8 Continue FLOMAX. - TAMSULOSIN 0.4 MG CAPSULE - TAMSULOSIN 0.4 MG CAPSULE - Call for worsening symptoms off doxazosin. 3. Congestive heart failure, unspecified HF chronicity, unspecified heart failure type (HCC) - ICD9: 428.0, ICD10: I50.9 Discontinue DOXAZOSIN. 4. Postherpetic neuralgia - ICD9: 053.19, ICD10: B02.29 Treatment options, benefits, risks, and potential side effects were reviewed and discussed. - GABAPENTIN 100 MG CAPSULE Polo Mitchell MD Referring Provider: SELF [[id number]] Allergies As of Date: 03/23/2018 Noted Allergy Reaction NO KNOWN ALLERGIES 04/12/2004 Comments: nkda Date Reviewed: 03/23/2018 Reviewed by: Jaylin Huitron LPN - Fully Assessed Reason for Visit: Hospital F/U [57] Primary Visit Diagnosis:Urinary tract infection without hematuria, site unspecified [N39.0] Other Visit Diagnoses:BPH with urinary obstruction [N40.1, N13.8] Congestive heart failure, unspecified HF chronicity, unspecified heart failure type (HCC) [I50.9] Postherpetic neuralgia [B02.29] Order(s):tamsulosin ER (FLOMAX) 0.4 mg [id number] 1 capsule by mouth daily at bedtime.Disp: 90 capsuleRfl: 1 gabapentin (NEURONTIN) 100 mg capsuleTake 1 capsule by mouth twice daily for 30 days. For shingles pain.Disp: 60 capsuleRfl: 0 Prescriptions as of 03/23/2018 Sig: TAMSULOSIN 0.4 MG CAPSULE Take 1 capsule by mouth daily* FUROSEMIDE 40 MG TABLET Take 1 tablet by mouth once d* POTASSIUM CHLORIDE ER 20 MEQ * Take 1 tablet by mouth once d* WARFARIN 5 MG TABLET Take 5 mg daily or as directed ALBUTEROL SULFATE HFA 90 MCG/* Inhale 2 Puffs as instructed * OMEGA-3 FATTY ACIDS 500 MG CA* Take 500 mg by mouth once lefty* METHYLSULFONYLMETHANE 1,000 M* Take 1 tablet by mouth twice * ASPIRIN 81 MG TABLET,DELAYED * Take 1 tablet by mouth once d* ASCORBIC ACID (VITAMIN C) 500* Take 500 mg by mouth once lefty* CALCIUM 500 ORAL Take by mouth once daily. COQ10 SG 100 ORAL Take by mouth once daily. METOPROLOL TARTRATE 50 MG TAB* Take 1 tablet by mouth every * SENNOSIDES 8.6 MG-DOCUSATE SO* Take 1 tablet by mouth twice * ATORVASTATIN 40 MG TABLET Take 0.5 tablets by mouth lefty* NITROGLYCERIN 0.4 MG SUBLINGU* Dissolve 1 tablet under the t* * [id number]-ZZBYYGJRJD-UP GLYCN-* Take 1 tablet by mouth once d* * ACETAMINOPHEN 325 MG TABLET Take 650 mg by mouth every 6 * * MULTIVITAMIN TABLET Take one(1) tablet daily. 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 CAD (coronary artery disease), cachil dehe coronary *INVALID FOR* More... Acute, but ill-defined, cerebrovascular disease*INVALID FOR*02/02/2017 Hyperlipidemia [E78.5] INVALID FOR* More... More... More... Valvular heart disease [I38] INVALID FOR*02/02/2017 More... Atrial Fibrillation on Coumadin [I48.91] INVALID FOR* Asthma [J45.909] INVALID FOR*02/02/2017 Priority: B More... BPH with urinary obstruction [N40.1, N13.8] INVALID FOR* More... Essential hypertension [I10] INVALID FOR* More... Abnormal stress test [R94.39] INVALID FOR*08/27/2016 More... Pre-operative cardiovascular examination [Z01.8*INVALID FOR*09/26/2016 Aortic stenosis s/p transapical AVR [I35.0] INVALID FOR* More... Preop testing [Z01.818] INVALID FOR*09/26/2016 More... Atelectasis [J98.11] INVALID FOR*02/02/2017 Priority: B More... More... SUMMARY INVALID FOR*02/02/2017 Priority: Mild More... Discharge planning issues [Z02.9] INVALID FOR*09/26/2016 Priority: D More... 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] INVALID FOR* Hyponatremia [E87.1] INVALID FOR* Congestive heart failure (HCC) [I50.9] INVALID FOR* Postherpetic neuralgia [B02.29] INVALID FOR* Other instructions from your clinician: STOP DOXAZOSIN (CARDURA). Prescriptions ordered this encounter Disp Refills Start End TAMSULOSIN 0.4 MG CAPSULE 90 c* 1 03/23/2018 Route: ORAL Sig: Take 1 capsule by mouth daily at bedtime. GABAPENTIN 100 MG CAPSULE 60 c* 0 03/23/2018 04/22/2018 Route: ORAL Sig: Take 1 capsule by mouth twice daily for 30 days. For shingles pain. Medications Discontinued During This Encounter doxazosin (CARDURA) 4 mg tablet 90 t* 3 02/22/2018 03/23/2018 Route: ORAL Sig: TAKE 1 TABLET BY MOUTH ONCE DAILY. Disc: Clinical Decision tamsulosin ER (FLOMAX) 0.4 mg cp24 03/23/2018 Class: Historical Med Route: ORAL Sig: Take 0.4 mg by mouth. Disc: Reason for discontinue is not on file. Encounter Status:Closed by POLO MITCHELL MD on 03/23/18 EMERGENCY DEPARTMENT Observed: 03/05/2018 Status: F Source: [place]Y SUMMARY 5:15 PM [facility] [place] REPOSITORY [facility] Medical Records Department [address] [place] [address] Emergency Department Summary 03/05/18 1451 MR#: [id number] Acct: [id number] Name: SIMA MULLEN Rep #: [id number] : 1935 82 From: Sebastian Lozada MD PCP: Polo Mitchell MD Status: DEP ER - ER Visit Summary Date of Service: 03/05/18 Chief Complaint: Urinary retention and dysuria History of Present Illness: The patient is a [address] Mitchell and Dr. Olivares. Patient reports that despite his Lasix he has had decreased urine output the past couple of days. He states that he feels that the though he needs to go and he goes then and is unable to. Reports that he had a very weak stream this morning is been unable to go since. He denies any history of urinary retention. He denies any fever, abdominal pain, nausea, or vomiting. Physical Examination: Vitals: Stable. Afebrile. General: Well-nourished and well-developed. Head: Normocephalic atraumatic. Neck: Supple, no lymphadenopathy. No JVD. Nontender. Cardiovascular: Irregular rhythm with 2 out of 6 systolic murmur. Respiratory: No respiratory distress. Clear to auscultation bilaterally. Abdominal: Soft, nontender, nondistended, normal bowel sounds. No guarding, rebound, or peritoneal signs. I do not appreciate a distended bladder. Back: Nontender. Extremities: Nontender, no edema. Skin: Normal color, no rash. Neurologic: Alert and oriented 3. Cranial nerves II through XII are intact. Normal strength and sensation. Psych: Normal affect. Test Results: CBC is remarkable for a white count of 4.4, H AND H of 11.2 and 34.0, platelets 135, segmented neutrophils of 74, lymphocytes of 14. Chem-7 is more for calcium 7.9. INR is 2.6. UA shows an infection. Emergency Department Course and Treatment: Patient had a Staley catheter placed. Is only had a proximal me 200 cc of urine out. This was sent for culture. The Staley was removed. Patient was given Macrobid and Azo p.o. He is resting comfortably. Treatment Plan: Patient will be discharged on Macrobid as it does not affect his INR. His urine is sent for culture. Is also given Pyridium and Flomax. Instructed to follow Dr. Rosa in 1 week for another exam. Return to the emergency department for any worsening symptoms. Disposition: To home in improved and stable condition. Impression: 1. UTI. 2. Coumadin coagulopathy. This note was generated with [email or web address] dictation software. It may contain incorrect words, spelling, and punctuation that were not noted in review of the chart prior to signing ED Disposition - Plan for ED Patient: Disposition: Home or Assisted Living Chief Complaint: Complaint Instructions: ED UTI Cystitis Male Prescriptions: Nitrofurantoin Macrocrystals [Macrobid] 100 mg PO Q12 #14 capsule Tamsulosin HCl [Flomax] 0.4 mg PO DAILY #30 capsule Phenazopyridine HCl [Pyridium] 200 mg PO TID #10 tablet Referrals: Danial Rosa MD [STAFF PHYSICIAN] - 1 Week What to do if you have Problems For any increased pain, shortness of breath, bleeding, nausea or vomiting, chest pain, or any unexpected problems, contact your Primary Care Provider. Call [facility] ([phone]) or report to the closest Emergency Room. Call 911 if necessary. 03/05/18 1715 <Electronically signed by Sebastian Lozada MD> Date Sebastian Lozada MD Cosigner Signature (If Indicated): Date CC: Polo Mitchell MD URINALYSIS, COMPLETE Collected: 03/05/2018 Status: F Source: SUSAN 1:55 PM [facility] REPOSITORY Order Comment: Has pt arrived? Y How was Urine Obtained? INTERLOCKING AND SIGNAL MECHANIC TO SPECIFY TYPE CODE TESTS RESULT OUT OF RANGE REFERENCE UNITS LAB L400.3000 Yellow COLOR Normal Yellow LAB L400.3050 Clear Normal CLARITY Cloudy LAB L400.3200 Normal mg/dl Normal GLUCOSE, UR Normal LAB L400.3300 Negative mg/dL Normal BILIRUBIN URINE Negative LAB L400.3400 Negative mg/dl Normal KETONE UR Negative LAB L400.3465 1.002-1.030 Normal SP.GR. DIPSTX 1.015 LAB L400.3550 5.0 - 8.0 pH UR Normal 6.0 LAB L400.3600 Negative mg/dl High PROT 30 DIPSTX LAB L400.3700 Normal mg/dl High 1 UROBILI LAB L400.3750 Negative High NITRITE UR Positive LAB L400.3780 Negative /ul High OCCULT BLOOD-UR 250 LAB L400.3800 Negative /ul High LEUK ESTERASE 500 LAB L400.4050 0-5 /hpf WBC Normal 50-100 SEEN LAB L400.4100 0-5 /hpf Normal RBC-UA 5-10 SEEN LAB L400.4150 0-5 /hpf SQUAM Normal EPI 0-5 SEEN LAB L400.4300 None Seen /hpf 3+ Normal BACTERIA LAB L400.4350 <or=2+ /hpf Normal MUCUS, URINE RARE Performed By: #### L400.0001 #### [facility] [address] [place], [address] Observed: 03/05/2018 Status: F Source: ROY CULTURE, URINE 1:55 PM [facility] RE[facility]ORY Urine Culture ORGANISM 1: Presumptive E. coli Point Clear Count >100,000 Presumptive E. coli: REACTION Amoxacillin/Clavulanic Acid $ <=2 S Ampicillin $ 4 S Ampicillin/Sulbactam $ <=2 S Cefazolin $ <=4 S Cefepime $ <=1 S Ceftriaxone $ <=1 S Ciprofloxacin $ <=0.25 S ESBL - Ertapenim $$$ <=0.5 S Gentamicin $ <=1 S Imipenem *NF <=0.25 S Levofloxacin $ <=0.12 S Nitrofurantoin $ <=16 S Piperacillin/Tazobactam $$ <=4 S Tobramycin $ <=1 S Trimethoprim/Sulfametho $ <=20 S (NF) indicates non-formulary drug at [facility]. Approval by Infectious Disease Specialist required before non-formulary drugs may be ordered and/or dispensed. Performed By: #### M100.0650 #### [facility] [address] [place], [address] CBC W/DIFF, AUTOMATED Collected: 03/05/2018 Status: F Source: ROY 1:25 PM [facility] REPOS[facility] TYPE CODE TESTS RESULT OUT OF RANGE REFERENCE UNITS LAB L100.1000 4.4-11.0 K/mm3 Low WBC 4.1 LAB L100.1200 4.6-6.2 M/mm3 Low RBC 3.91 LAB L100.1300 13.0-16.5 g/dl Low HGB 11.2 LAB L100.1400 40-54 % Low HCT 34.0 LAB L100.1500 80-94 fL Normal MCV 87.0 LAB L100.1600 27.0-32.0 pg Normal MCH 28.6 LAB L100.1700 32-36 g/gl Normal MCHC 32.9 LAB L100.1810 11.6-14.6 % High RDW CV 15.8 LAB L100.1820 35.1-43.9 fl High RDW SD 50.7 LAB L100.1900 150-450 K/mm3 Low PLT 135 LAB L100.2000 6.2-12.0 fl Normal MPV 10.1 LAB L100.2100 47-70 % High NEUT% 74.6 LAB L100.2200 19-41 % Low LY% 13.6 LAB L100.2300 0-10 % High MONO% 10.2 LAB L100.2400 0-5 % Normal EO% 1.2 LAB L100.2500 0-1 % Normal BASO% 0.2 LAB L100.2550 0.0-0.9 % Normal IM GRAN % 0.200 Result Comment: IG% - Immature Granulocytes (promyelocytes, myelocytes and metamyelocytes) > 1% indicates that a LEFT SHIFT is Present. LAB L100.2620 2.0-7.7 X10 3/uL Normal Absolute Neut 3.1 LAB L100.2720 0.83-4.51 X10 3/ul Low Absolute Lymph 0.56 LAB L100.4500 Normal SMEAR COMMENT COMMENT Result Comment: SLIDE SCANNED - LYMPHOPENIA NOTED. Performed By: #### L100.0100 #### [facility] [address] [place], [address] BASIC METABOLIC Collected: 03/05/2018 Status: F Source: ROY PROFILE ([facility]) 1:25 PM [facility] TYPE CODE TESTS RESULT OUT OF RANGE REFERENCE UNITS LAB L501.0100 74-106 mg/dL Normal GLU 96 Result Comment: Please note revised GLUCOSE reference range effective 2017. LAB L501.1000 7-18 mg/dL Normal BUN 13 LAB L501.1100 0.70-1.30 mg/dL Normal CREAT,SERUM 0.84 Result Comment: The validity of the calculated GFR AND GFRAA in patients over 70 years has not been determined. Clinical correlation is essential. LAB L501.1110 >60 mL/min Normal EST GFR 94 Result Comment: Non- GFR Calc LAB L501.1115 >60 mL/min Normal EST GFR - AA 113 Result Comment: GFR Calc LAB L501.1255 ml/min Normal Estimated CRCL 66.73 LAB L501.1300 10-20 RATIO Normal BUN/CRE 15.6 LAB L501.2200 8.5-10 mg/dL Low .1 CA 7.9 LAB L501.5300 136-14 mmol/L Normal 5 NA 137 LAB L501.5600 3.5-5. mmol/L Normal 1 K 4.3 LAB L501.5900 98-107 mmol/L Normal CL 106 LAB L501.6100 21.0-3 mmol/L Normal 2.0 CO2 28.0 LAB L501.6200 5-15 Low GAP 3 Performed By: #### L500.2500 #### [facility] [address] [facility] [place], [place], [id number] PROTHROMBIN TIME W/INR Collected: 03/05/2018 Status: F Source: ROY 1:25 PM [facility] TYPE CODE TESTS RESULT OUT OF RANGE REFERENCE UNITS LAB L300.4150 11.7-14.9 SECONDS High PROTIME 27.7 LAB L300.4200 Normal INR 2.6 Performed By: #### L300.3900 #### [facility] [address] [facility]. [place], [place], [address] PROGRESS Observed: 02/23/2018 Status: COMPLETED Source: ANMOORE 3:41 PM [facility] REPOSITORY HNO ID: [id number] Author: Polo Mitchell Service: (none) Author Type: Physician Type: Progress Notes Filed: 02/23/2018 3:41 PM Note Text: Okay. PROGRESS Observed: 02/23/2018 Status: COMPLETED Source: ANMOORE 2:59 PM [facility] REPOSITORY HNO ID: [id number] Author: Lorna Mata RN Service: (none) Author Type: (none) Type: Progress Notes Filed: 02/23/2018 3:00 PM Note Text: patient had inr completed at [facility] patients inr is 2.2 (patients inr range is 2.0-3.0) patient is currently taking 7.5mg Tues,Thurs and 5mg all other days patients last dose change was on 02/09/18 due to a low level of 1.6 (dose at that time was 5mg daily) patient has had no changes in medication and no missed doses and no change in diet Advised patient to continue on the same dose(s) and that they would only be contacted regarding dosage and follow up instructions after review with provider, if a change is needed. Written instructions given and patient verbalized understanding. Presently scheduled in 4 weeks (03/23/18) for follow up INR. PROGRESS Observed: 02/09/2018 Status: COMPLETED Source: ANMOORE 5:04 PM [facility] REPOSITORY HNO ID: [id number] Author: Laurence Scott LPN Service: (none) Author Type: (none) Type: Progress Notes Filed: 02/09/2018 5:04 PM Note Text: This note was created using [email or web address]. Subjective Sima Mullen is a 82 year old male. Review of Systems Objective There were no vitals taken for this visit. Physical Exam Assessment and Plan Patient notified of results and provider's instructions. Patient verbalizes understanding. Laurence Scott LPN PROGRESS Observed: 02/09/2018 Status: COMPLETED Source: ANMOORE 5:02 PM [facility] REPOSITORY HNO ID: [id number] Author: Polo Mitchell Service: (none) Author Type: Physician Type: Progress Notes Filed: 02/09/2018 5:04 PM Note Text: Increase Coumadin dose. 7.5 mg Tue and Deana and 5 mg on all other 5 days of the week. INR in 2 weeks. PROGRESS Observed: 02/09/2018 Status: COMPLETED Source: ANMOORE 3:51 PM [facility] REPOSITORY HNO ID: [id number] Author: Lorna Mata RN Service: (none) Author Type: (none) Type: Progress Notes Filed: 02/09/2018 3:52 PM Note Text: patient had inr completed at [facility] patients inr is 1.6 (patients inr range is 2.0-3.0) patient is currently taking 5mg daily patients last dose change was on 01/19/18 due to a low level of 1.4 (dose at this time was 2.5mg Sat,Sun and 5mg all other days) patient has had no changes in medication and no missed doses and no change in diet Advised patient that they would be contacted regarding medication dose and when to follow up after information is reviewed by provider. After provider review please contact the patient with information and schedule follow up appointment with coumadin clinic. FYI - patient has been scheduled for a 2 week follow up inr check on 02/23/18 PROGRESS Observed: 01/26/2018 Status: COMPLETED Source: ANMOORE 4:19 PM [facility] REPOSITORY HNO ID: [id number] Author: Polo Mitchell Service: (none) Author Type: Physician Type: Progress Notes Filed: 01/26/2018 4:19 PM Note Text: Okay. PROGRESS Observed: 01/26/2018 Status: COMPLETED Source: ANMOORE 2:55 PM [facility] REPOSITORY HNO ID: [id number] Author: Lorna Mata RN Service: (none) Author Type: (none) Type: Progress Notes Filed: 01/26/2018 2:56 PM Note Text: patient had inr completed at [facility] patients inr is 2.0 (patients inr range is 2.0-3.0) patient is currently taking 5mg daily patients last dose change was on 01/19/18 due to a low level of 1.4 (dose at that time was 2.5mg Sat,Sun and 5mg all other days) patient has had no change in medication except for the coumadin and no missed doses and no change in diet Advised patient to continue on the same dose(s) and that they would only be contacted regarding dosage and follow up instructions after review with provider, if a change is needed. Written instructions given and patient verbalized understanding. Presently scheduled in 2 weeks (02/09/18) for follow up INR. CBC Collected: 01/21/2018 Status: F Source: ANMOORE 11:20 AM [facility] REPOSITORY TYPE CODE TESTS RESULT OUT OF REFERENCE UNITS RANGE LAB WBC 3.70-11.00 k/uL WBC 5.92 LAB RBC 4.20-6.00 m/uL Low RBC 3.72 LAB HGB 13.0-17.0 g/dL Low Hemoglobin 10.8 LAB HCT 39.0-51.0 % Low Hematocrit 35.9 LAB MCV 80.0-100.0 fL MCV 96.5 LAB MCH 26.0-34.0 pG MCH 29.0 LAB MCHC 30.5-36.0 g/dL Low MCHC 30.1 LAB RDWCV 11.5-15.0 % RDW-CV 14.9 LAB PLTCT 150-400 k/uL Platelet Count 223 LAB MPV 9.0-12.7 fL MPV 9.9 LAB ABSNUC <0.01 k/uL Absolute nRBC <0.01 Performed By: #### CBC, PT, BMP #### [facility] [address], [place] [address] PROTIME Collected: 01/21/2018 Status: F Source: ANMOORE 11:20 AM [facility] REPOSITORY TYPE CODE TESTS RESULT OUT OF RANGE REFERENCE UNITS LAB PSEC 9.7-13.0 sec High PT Sec 16.7 LAB INR 0.9-1.3 High PT INR 1.7 Result Comment: Vitamin K Antagonist (VKA) Therapeutic Range: INR 2 to 3 (Target INR of 2.5) Note: For patients treated with VKA drugs, such as warfarin, the [employer] 2012 Guideline recommends a therapeutic INR range of 2 to 3 (target INR of 2.5). This recommendation includes high-risk patients with antiphospholipid syndrome with previous arterial or venous thromboembolism, current-generation mechanical or bioprosthetic aortic heart valve replacement. Note: Patients with mechanical aortic valve replacement and additional risk factors for thromboembolic events (atrial fibrillation, previous thromboembolism, LV dysfunction, hypercoagulable conditions) or an older generation mechanical AVR (i.e., ball in-Cage) or any mechanical MVR should have a INR therapeutic range of 2.5 to 3.5 (target INR of 3). Freddie LAMAR, et al. Chest 2012, 141:7S-47S Homero RA, et al. [facility] 2017, 70: 252-289 Performed By: #### CBC, PT, BMP #### [facility] [address] [place], [place] [address] BASIC METABOLIC PANL Collected: 01/21/2018 Status: F Source: ANMOORE 11:20 AM [facility] REPOSITORY TYPE CODE TESTS RESULT OUT OF REFERENCE UNITS RANGE LAB GLU 74-99 mg/dL Glucose 97 Result Comment: The [employer] Diabetes Association (ADA) provides guidance for cutoff values for fasting glucose and random glucose. The ADA defines fasting as no caloric intake for at least 8 hours. Fas ting plasma glucose results between 100 to 125 mg/dL indicate increased risk for diabetes (prediabetes). Fasting plasma glucose results greater than or equal to 126 mg/dL meet the criteria for diagnosis of diabetes. In the absence of unequivocal hyperglycemia, results should be confirmed by repeat testing. In a patient with classic symptoms of hyperglycemia or hyperglycemic crisis, random plasma glucose results greater than or equal to 200 mg/dL meet the criteria for diagnosis of diabetes. Reference: Standards of Medical Care in Diabetes 2016, [employer] Association. Diabetes Care. 2016.39(Suppl 1). LAB BUN 9-24 mg/dL BUN 16 LAB CRET 0.73-1.22 mg/dL Creatinine 0.91 LAB NA 136-144 mmol/L Sodium 141 LAB K 3.7-5.1 mmol/L Potassium 4.6 LAB CL 97-105 mmol/L Chloride 105 LAB CO2 22-30 mmol/L CO2 27 LAB AGAP 9-18 mmol/L Anion Gap 9 LAB CA 8.5-10.2 mg/dL Calcium, Low Total 8.3 LAB GFRAA eGFR- Amer. >60 LAB GFRNAA . eGFR-All Other Races >60 Result Comment: eGFR (Estimated GFR) Units of measure: mL/min/1.73 meters squared eGFR is derived from the reexpressed MDRD Study equation using the following parameters: serum creatinine, age, gender and race. The creatinine assay has been calibrated to be traceable to IDMS. An eGFR <60 mL/min/1.73m2 for >3 months is consistent with chronic kidney disease. Refer to KDOQI guidelines for clinical interpretation. In patients with unstable renal function, e.g. those with acute kidney injury, the eGFR may not accurately reflect actual GFR. Performed By: #### CBC, PT, BMP #### [facility] [address] [place], [place] [address] PROGRESS Observed: 01/21/2018 Status: COMPLETED Source: ANMOORE 10:05 AM [facility] REPOSITORY HNO ID: [id number] Author: Zaynab (Michael) Older Service: (none) Author Type: Nurse Practitioner Type: Progress Notes Filed: 01/21/2018 2:52 PM Note Text: CC: Patient presents with: Medication Follow-up HPI Sima Mullen is a 82 year old male who presents today for medication follow up. On December 24, patient went to urgent care with complaints of SOB, wheezing, and coughing. He was sent to the ED and was then admitted to the hospital for 2 days for acute on chronic CHF. After visit, patient was prescribed lasix and potassium chloride. He is here today for a refill on these two medications and a handicap placard. States he is feeling much better today then when he was in the hospital. Denies SOB, wheezing, cough, hemoptysis, chest pain, chest pressure, heart palpitations, dizziness, headaches, or lightheadedness. Does have swelling in his bilateral lower extremities which is normal for him but reports that it is much better than it has been in the past. Patient has an extensive heart history and sees Dr. Olivares at [facility] for cardiology. Last seen in August of 2017. While patient was admitted to hospital, Dr. Olivares was not consulted. No documented history of CHF but hospitalization stated reason was for CHF and patient has a history of CHF. Patient prior to hospitalization was on HCTZ but was told to discontinue medication by Dr. Mitchell because he was having hyponatremia. Also, while at hospital patient had hematuria upon admission but resolved during hospitalization. Patient denies any hematuria, difficulty urinating, or increase in incontinence since hospitalization. Does report increased frequency since taking lasix. Denies any other adverse side effects from lasix or potassium. 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/o right arm and leg paralysis, resolved - Anemia 08/04/2017 - Asthma 12/20/2009 - Atrial fibrillation (HCC) - Benign localized hyperplasia of prostate with urinary obstruction and other lower urinary tract symptoms (LUTS)(600.21) 12/20/2009 - Congestive heart failure (HCC) - CORONARY ATHEROSCLER UNSPEC VESSEL 02/28/2004 4 V CABG at age 69: done at the [facility] Creat 1.1 in 07-27 A1C 6.4% in 07-27 - DISSECTING ABDOM AORTIC ANEURYSM 02/28/2004 Being monitored as of 07-27: seeing Vascular in [place] Hct 43.9% in 07-27 - Diverticulosis of colon (without mention of hemorrhage) - HYPERLIPIDEMIA NEC/NOS 02/28/2004 LDL 78, HDL 35, TG 80 in 07-27 - Mixed hyperlipidemia 1983 Hyperlipidemia - Stroke (HCC) - Tobacco use disorder 08/08/2009 Smoked 1 ppd from about age [age] - Unspecified essential hypertension Essential hypertension - Valvular heart disease 12/20/2009 Mitral valve, Aortic stenosis. PAST SURGICAL HISTORY Procedure Laterality Date - CABG, ARTERY-VEIN, THREE March CABG, three grafts - COLONOSCOP W/ OR W/O BRSH SPEC 11/21/2009 Colonoscopy - PAST SURGICAL HISTORY OF Excision benign tumor-throat - REMOVE TONSILS/ADENOIDS,<12 Y/O Tonsil/adenoidectomy - REMV CATARACT EXTRACAP,INSERT LENS Cataract Extraction with PC IOL - TRANSCATHETER TRANSAPICAL REPLACEMT AORTIC VALVE 08/27/2016 Transapical implantation of #26 Eder S3 valve ALLERGIES No Known Allergies MEDICATIONS warfarin (COUMADIN) 5 mg tablet Take 5 mg daily or as directed albuterol HFA (PROVENTIL HFA) 90 mcg/actuation inhaler Inhale 2 Puffs as instructed every 6 hours as needed. Gilbert-3 Fatty Acids (FISH OIL) 500 mg cap Take by mouth once daily. Methylsulfonylmethane (MSM) 1,000 mg tab Take by mouth. doxazosin (CARDURA) 4 mg tablet Take 1 tablet by mouth once daily. aspirin, enteric coated (ASPIR-LOW) 81 mg EC tablet Take 1 tablet by mouth once daily. ascorbic acid, vitamin C, (VITAMIN C) 500 mg tablet Take 500 mg by mouth once daily. CALCIUM CARBONATE (CALCIUM 500 ORAL) Take by mouth once daily. UBIDECARENONE/VITAMIN E MIXED (COQ10 SG 100 ORAL) Take by mouth once daily. metoprolol tartrate, short acting, (LOPRESSOR) 50 mg tablet Take 1 tablet by mouth every 12 hours. senna-docusate (SENNA-S) 8.6-50 mg per tablet Take 1 tablet by mouth twice daily. atorvastatin (LIPITOR) 40 mg tablet Take 0.5 tablets by mouth daily at bedtime. For cholesterol. nitroglycerin sublingual 0.4 mg SL tablet Dissolve 1 tablet under the tongue every 5 minutes as needed for Chest Pain. GLUC HCL/CSANA/GLY-AM-GLY,MX/C ([id number]-BJESQNBTPT-JI GLYCN- C ORAL) Take 1 tablet by mouth once daily. acetaminophen (TYLENOL) 325 mg ORAL tablet Take 650 mg by mouth every 6 hours as needed. MULTIVITAMIN ORAL TAB Take one(1) tablet daily. FAMILY HISTORY Problem Relation Age of Onset - Cancer Mother age 56 of (?) cancer - unknown [OTHER] Father age 56, 1 month post-op AAA repair - Heart Daughter age 24 of HOCM Social History Substance Use Topics - Smoking status: Former Smoker Packs/day: 1.00 Years: 20.00 Types: Cigarettes Quit date: 10/19/1969 - Smokeless tobacco: Never Used Comment: quit sometime in the early seven - Alcohol use Yes Comment: 1-2 times a month, maybe PHYSICAL EXAM BP 120/80 Pulse 66 Temp 36.3 ?C (97.4 ?F) (Temporal Artery) Resp 14 Wt 76.2 kg (168 lb) SpO2 100% BMI 25.54 kg/m2 General Appearance: well appearing, in no acute distress, alert Lungs: Lungs clear to auscultation. No wheezing, rhonchi, rales Heart: Heart rate irregular rhythm, no murmurs, gallops, or rubs, no ectopy Bilateral Lower Extremities: Edema: 2+ pitting, unable to palpate pedal pulses but lower extremities warm, pink, and sensation present ASSESSMENT/PLAN: 1. Congestive heart failure, unspecified HF chronicity, unspecified heart failure type (HCC) - ICD9: 428.0, ICD10: I50.9 (primary diagnosis) Acute on chronic CHF per hospital admission, no record of diagnosis of CHF in [facility] or cardiology consult notes. HCTZ was discontinued by PCP previously due to hyponatremia, will recheck BMP today - Educated to call Dr. Olivares's office and schedule appointment since he was diagnosed with CHF at hospital - Continue Lasix and Potassium, refilled prescriptions - Follow-up pending lab results - BASIC METABOLIC PNL 2. Hyponatremia - ICD9: 276.1, ICD10: E87.1 As above Prescription instructions reviewed with patient as applicable. Potential red flag symptoms discussed with the patient. Reviewed appropriate action plan to take if red flag symptoms occur. Patient agreeable to treatment plan. MAGGI FinneganOV Observed: 01/21/2018 Status: COMPLETED Source: ANMOORE 10:00 AM [facility] REPOSIT[facility] Office Visit (INTMWS) SIMA MULLEN ([id number]) 1935 M TXT Date Time Provider Department 01/21/18 10:00 AM ZAYNAB CHRISTOPHER (MICHAEL) INTMWS During your visit today, we recorded the following information about you: Temperature Pulse Respiration Blood pressure 97.4 degrees 66/minute 14/minute 120/80 Weight 76.2 kg Zaynab Christopher APRN.CNP 01/21/2018 2:52 PM Signed CC: Patient presents with: Medication Follow-up HPI Sima Mullen is a 82 year old male who presents today for medication follow up. On December 24, patient went to urgent care with complaints of SOB, wheezing, and coughing. He was sent to the ED and was then admitted to the hospital for 2 days for acute on chronic CHF. After visit, patient was prescribed lasix and potassium chloride. He is here today for a refill on these two medications and a handicap placard. States he is feeling much better today then when he was in the hospital. Denies SOB, wheezing, cough, hemoptysis, chest pain, chest pressure, heart palpitations, dizziness, headaches, or lightheadedness. Does have swelling in his bilateral lower extremities which is normal for him but reports that it is much better than it has been in the past. Patient has an extensive heart history and sees Dr. Olivares at [facility] for cardiology. Last seen in August of 2017. While patient was admitted to hospital, Dr. Olivares was not consulted. No documented history of CHF but hospitalization stated reason was for CHF and patient has a history of CHF. Patient prior to hospitalization was on HCTZ but was told to discontinue medication by Dr. Mitchell because he was having hyponatremia. Also, while at hospital patient had hematuria upon admission but resolved during hospitalization. Patient denies any hematuria, difficulty urinating, or increase in incontinence since hospitalization. Does report increased frequency since taking lasix. Denies any other adverse side effects from lasix or potassium. 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/o right arm and leg paralysis, resolved - Anemia 08/04/2017 - Asthma 12/20/2009 - Atrial fibrillation (HCC) - Benign localized hyperplasia of prostate with urinary obstruction and other lower urinary tract symptoms (LUTS)(600.21) 12/20/2009 - Congestive heart failure (HCC) - CORONARY ATHEROSCLER UNSPEC VESSEL 02/28/2004 4 V CABG at age 69: done at the [facility] Creat 1.1 in 07-27 A1C 6.4% in 07-27 - DISSECTING ABDOM AORTIC ANEURYSM 02/28/2004 Being monitored as of 07-27: seeing Vascular in [place] Hct 43.9% in 07-27 - Diverticulosis of colon (without mention of hemorrhage) - HYPERLIPIDEMIA NEC/NOS 02/28/2004 LDL 78, HDL 35, TG 80 in 07-27 - Mixed hyperlipidemia 1984 Hyperlipidemia - Stroke (HCC) - Tobacco use disorder 08/08/2009 Smoked 1 ppd from about age [age] - Unspecified essential hypertension Essential hypertension - Valvular heart disease 12/20/2009 Mitral valve, Aortic stenosis. PAST SURGICAL HISTORY Procedure Laterality Date - CABG, ARTERY-VEIN, THREE March CABG, three grafts - COLONOSCOP W/ OR W/O BRSH SPEC 11/21/2009 Colonoscopy - PAST SURGICAL HISTORY OF Excision benign tumor-throat - REMOVE TONSILS/ADENOIDS,ANDlt;13 Y/O Tonsil/adenoidectomy - REMV CATARACT EXTRACAP,INSERT LENS Cataract Extraction with PC IOL - TRANSCATHETER TRANSAPICAL REPLACEMT AORTIC VALVE 08/27/2016 Transapical implantation of #26 Eder S3 valve ALLERGIES No Known Allergies MEDICATIONS warfarin (COUMADIN) 5 mg tablet Take 5 mg daily or as directed albuterol HFA (PROVENTIL HFA) 90 mcg/actuation inhaler Inhale 2 Puffs as instructed every 6 hours as needed. Gilbert-3 Fatty Acids (FISH OIL) 500 mg cap Take by mouth once daily. Methylsulfonylmethane (MSM) 1,000 mg tab Take by mouth. doxazosin (CARDURA) 4 mg tablet Take 1 tablet by mouth once daily. aspirin, enteric coated (ASPIR-LOW) 81 mg EC tablet Take 1 tablet by mouth once daily. ascorbic acid, vitamin C, (VITAMIN C) 500 mg tablet Take 500 mg by mouth once daily. CALCIUM CARBONATE (CALCIUM 500 ORAL) Take by mouth once daily. UBIDECARENONE/VITAMIN E MIXED (COQ10 SG 100 ORAL) Take by mouth once daily. metoprolol tartrate, short acting, (LOPRESSOR) 50 mg tablet Take 1 tablet by mouth every 12 hours. senna-docusate (SENNA-S) 8.6-50 mg per tablet Take 1 tablet by mouth twice daily. atorvastatin (LIPITOR) 40 mg tablet Take 0.5 tablets by mouth daily at bedtime. For cholesterol. nitroglycerin sublingual 0.4 mg SL tablet Dissolve 1 tablet under the tongue every 5 minutes as needed for Chest Pain. GLUC HCL/CSANA/GLY-AM-GLY,MX/C (BSTJFREC-BLJOKKQNLX-PV GLYCN- C ORAL) Take 1 tablet by mouth once daily. acetaminophen (TYLENOL) 325 mg ORAL tablet Take 650 mg by mouth every 6 hours as needed. MULTIVITAMIN ORAL TAB Take one(1) tablet daily. FAMILY HISTORY Problem Relation Age of Onset - Cancer Mother age 56 of (?) cancer - unknown [OTHER] Father age 56, 1 month post-op AAA repair - Heart Daughter age 24 of HOCM Social History Substance Use Topics - Smoking status: Former Smoker Packs/day: 1.00 Years: 20.00 Types: Cigarettes Quit date: 10/19/1969 - Smokeless tobacco: Never Used Comment: quit sometime in the early seven - Alcohol use Yes Comment: 1-2 times a month, maybe PHYSICAL EXAM BP 120/80 Pulse 66 Temp 36.3 ?C (97.4 ?F) (Temporal Artery) Resp 14 Wt 76.2 kg (168 lb) SpO2 100% BMI 25.54 kg/m2 General Appearance: well appearing, in no acute distress, alert Lungs: Lungs clear to auscultation. No wheezing, rhonchi, rales Heart: Heart rate irregular rhythm, no murmurs, gallops, or rubs, no ectopy Bilateral Lower Extremities: Edema: 2+ pitting, unable to palpate pedal pulses but lower extremities warm, pink, and sensation present ASSESSMENT/PLAN: 1. Congestive heart failure, unspecified HF chronicity, unspecified heart failure type (HCC) - ICD9: 428.0, ICD10: I50.9 (primary diagnosis) Acute on chronic CHF per hospital admission, no record of diagnosis of CHF in EPIC or cardiology consult notes. HCTZ was discontinued by PCP previously due to hyponatremia, will recheck BMP today - Educated to call Dr. Olivares's office and schedule appointment since he was diagnosed with CHF at hospital - Continue Lasix and Potassium, refilled prescriptions - Follow-up pending lab results - BASIC METABOLIC PNL 2. Hyponatremia - ICD9: 276.1, ICD10: E87.1 As above Prescription instructions reviewed with patient as applicable. Potential red flag symptoms discussed with the patient. Reviewed appropriate action plan to take if red flag symptoms occur. Patient agreeable to treatment plan. MAGGI Finnegan APRN.CNP 01/21/2018 10:[address] Olivares's office and let him know that you were in the hospital and diagnosed with CHF and started on lasix and potassium Referring Provider: SELF [200] Allergies As of Date: 01/21/2018 Noted Allergy Reaction NO KNOWN ALLERGIES 04/12/2004 Comments: nkda Date Reviewed: 01/19/2018 Reviewed by: Lorna Mata RN - Fully Assessed Reason for Visit: Medication Follow-up [270] Primary Visit Diagnosis:Congestive heart failure, unspecified HF chronicity, unspecified heart failure type (HCC) [I50.9] Other Visit Diagnosis:Hyponatremia [E87.1] Order(s):potassium chloride ER (K-DUR, KLOR-CON) 20 mEq tabletTake 1 tablet by mouth once daily.Disp: 90 tabletRfl: 0 BASIC METABOLIC PNL [SQBMP] Order #: [id number] FUTURE Prescriptions as of 01/21/2018 Sig: WARFARIN 5 MG TABLET Take 5 mg daily or as directed ALBUTEROL SULFATE HFA 90 MCG/* Inhale 2 Puffs as instructed * OMEGA-3 FATTY ACIDS 500 MG CA* Take by mouth once daily. METHYLSULFONYLMETHANE 1,000 M* Take by mouth. DOXAZOSIN 4 MG TABLET Take 1 tablet by mouth once d* ASPIRIN 81 MG TABLET,DELAYED * Take 1 tablet by mouth once d* ASCORBIC ACID (VITAMIN C) 500* Take 500 mg by mouth once lefty* CALCIUM 500 ORAL Take by mouth once daily. COQ10 SG 100 ORAL Take by mouth once daily. METOPROLOL TARTRATE 50 MG TAB* Take 1 tablet by mouth every * SENNOSIDES 8.6 MG-DOCUSATE SO* Take 1 tablet by mouth twice * ATORVASTATIN 40 MG TABLET Take 0.5 tablets by mouth lefty* NITROGLYCERIN 0.4 MG SUBLINGU* Dissolve 1 tablet under the t* * BMKROQEW-QFRLWNIYUJ-OL GLYCN-* Take 1 tablet by mouth once d* * ACETAMINOPHEN 325 MG TABLET Take 650 mg by mouth every 6 * * MULTIVITAMIN TABLET Take one(1) tablet daily. 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 CAD (coronary artery disease), cachil dehe coronary *INVALID FOR* More... Acute, but ill-defined, cerebrovascular disease*INVALID FOR*02/02/2017 Hyperlipidemia [E78.5] INVALID FOR* More... More... More... Valvular heart disease [I38] INVALID FOR*02/02/2017 More... Atrial Fibrillation on Coumadin [I48.91] INVALID FOR* Asthma [J45.909] INVALID FOR*02/02/2017 Priority: B More... BPH (benign prostatic hyperplasia) [N40.0] INVALID FOR*08/27/2016 More... Essential hypertension [I10] INVALID FOR* More... Abnormal stress test [R94.39] INVALID FOR*08/27/2016 More... Pre-operative cardiovascular examination [Z01.8*INVALID FOR*09/26/2016 Aortic stenosis s/p transapical AVR [I35.0] INVALID FOR* More... Preop testing [Z01.818] INVALID FOR*09/26/2016 More... Atelectasis [J98.11] INVALID FOR*02/02/2017 Priority: B More... More... SUMMARY INVALID FOR*02/02/2017 Priority: Mild More... Discharge planning issues [Z02.9] INVALID FOR*09/26/2016 Priority: D More... 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 Olivares's office and let him know that you were in the hospital and diagnosed with CHF and started on lasix and potassium Prescriptions ordered this encounter Disp Refills Start End POTASSIUM CHLORIDE ER 20 MEQ TABLET,* 90 t* 0 01/21/2018 Route: ORAL Sig: Take 1 tablet by mouth once daily. Letter Text Department of Internal Medicine [address] [id number] 01/21/2018 THIS IS A PRESCRIPTION FOR HANDICAPPED PARKING PERMIT Re: Sima Mullen [address] [place] [id number] The above named person requires a disability parking placard. DURATION: LIFETIME EXPIRATION: RENEW EVERY 5 YEARS Sincerely, Zaynab Christopher CNP Encounter Status:Closed by ZAYNAB CHRISTOPHER CNP on 01/21/18 PROGRESS Observed: 01/19/2018 Status: COMPLETED Source: ANMOORE 6:41 PM [facility] REPOSITORY HNO ID: [id number] Author: Andrea Adams Service: (none) Author Type: (none) Type: Progress Notes Filed: 01/20/2018 4:10 PM Note Text: TC to patient and message from provider given with voiced understanding per readback. PROGRESS Observed: 01/19/2018 Status: COMPLETED Source: ANMOORE 5:21 PM [facility] REPOSITORY HNO ID: [id number] Author: Polo Mitchell Service: (none) Author Type: Physician Type: Progress Notes Filed: 01/20/2018 4:10 PM Note Text: Increase Coumadin dose 5 mg daily. INR in 1 week. PROGRESS Observed: 01/19/2018 Status: COMPLETED Source: ANMOORE 3:05 PM [facility] REPOSITORY HNO ID: [id number] Author: Lorna Mata RN Service: (none) Author Type: (none) Type: Progress Notes Filed: 01/19/2018 3:07 PM Note Text: patient had inr completed at [facility] patients inr is 1.4 (patients inr range is 2.0-3.0) patient is currently taking 2.5mg Sat,Sun and 5mg all other days patients last dose change was on 01/05/18 due to a low level of 1.4 (dose at that time was 5mg Mon,Wed,Fri and 2.5mg all other days) patient has had no changes in medication except for coumadin and no missed doses and no change in diet Advised patient that they would be contacted regarding medication dose and when to follow up after information is reviewed by provider. After provider review please contact the patient with information and schedule follow up appointment with coumadin clinic. FYI - patient has been scheduled for a 1 week inr follow up on 01/26/18 CNCO Observed: 01/11/2018 Status: COMPLETED Source: ANMOORE 12:00 AM [facility] REPOSITORY Letter Text [address] [place] [address] [phone] 01/11/2018 Sima Mullen [address] [facility] [address] Dear Mr. Mullen: Due to a change in the provider's schedule, it has been necessary to reschedule your appointment. Enclosed please find a new appointment reminder that will replace the one previously sent to you. If this appointment is not convenient for you, please contact our office at [phone]. Thank you for choosing the [facility] as your Healthcare Provider. Sincerely, Appointment Office PROGRESS Observed: 01/05/2018 Status: COMPLETED Source: ANMOORE 5:02 PM [facility] REPOSITORY HNO ID: [id number] Author: Laurence Scott LPN Service: (none) Author Type: (none) Type: Progress Notes Filed: 01/05/2018 5:03 PM Note Text: This note was created using [email or web address]. Subjective Sima Mullen is a 82 year old male. Review of Systems Objective There were no vitals taken for this visit. Physical Exam Assessment and Plan Patient notified of results and provider's instructions. Patient verbalizes understanding. Laurence Scott LPN PROGRESS Observed: 01/05/2018 Status: COMPLETED Source: ANMOORE 4:01 PM [facility] REPOSITORY HNO ID: [id number] Author: Polo Mitchell Service: (none) Author Type: Physician Type: Progress Notes Filed: 01/05/2018 5:03 PM Note Text: Increase Coumadin dose 5 mg daily M,T,W,Th, F and 2.5 mg on S,S. INR in 2 weeks. PROGRESS Observed: 01/05/2018 Status: COMPLETED Source: ANMOORE 3:03 PM [facility] REPOSITORY HNO ID: [id number] Author: Lorna Mata RN Service: (none) Author Type: (none) Type: Progress Notes Filed: 01/05/2018 3:05 PM Note Text: patient had inr completed at [facility] patients inr is 1.4 (patients inr range is 2.0-3.0) patient is currently taking 5mg Mon,Wed,Fri and 2.5mg all other days patients last dose change was on 12/29/17 due to a low level of 1.3 (dose at that time was 2.5mg daily) patient has had no changes in medication except for the coumadin and no missed doses and no change in diet Advised patient that they would be contacted regarding medication dose and when to follow up after information is reviewed by provider. After provider review please contact the patient with information and schedule follow up appointment with coumadin clinic. FYI - patients has been scheduled for an inr follow up in 2 weeks on 01/19/18 PROGRESS Observed: 12/30/2017 Status: COMPLETED Source: ANMOORE 9:20 AM [facility] REPOSITORY HNO ID: [id number] Author: Laurence Scott LPN Service: (none) Author Type: (none) Type: Progress Notes Filed: 12/30/2017 1:20 PM Note Text: This note was created using [email or web address]. Subjective Sima Mullen is a 82 year old male. Review of Systems Objective There were no vitals taken for this visit. Physical Exam Patient notified of results and provider's instructions. Patient verbalizes understanding. Laurence Scott LPN PROGRESS Observed: 12/29/2017 Status: COMPLETED Source: ANMOORE 4:53 PM [facility] REPOSITORY HNO ID: [id number] Author: Polo Mitchell Service: (none) Author Type: Physician Type: Progress Notes Filed: 12/30/2017 1:20 PM Note Text: Increase Coumadin dose. 5 mg MWF and 2.5 mg S,T,Th,Sat. INR in 1 week. PROGRESS Observed: 12/29/2017 Status: COMPLETED Source: ANMOORE 3:28 PM [facility] REPOSITORY O ID: [id number] Author: Lorna Mata RN Service: (none) Author Type: (none) Type: Progress Notes Filed: 12/29/2017 3:31 PM Note Text: patient had inr completed at [facility] patients inr is 1.3 (patients inr range is 2.0-3.0) patient is currently taking 2.5mg daily patients last dose change was on 12/27/17 due to admission to [facility] on 12/24/17 (hospital discharged with coumadin instruction of 2.5mg daily, changing it from 5mg daily) patient has had no changes in medication except for the coumadin and no missed doses and no change in diet Advised patient that they would be contacted regarding medication dose and when to follow up after information is reviewed by provider. After provider review please contact the patient with information and schedule follow up appointment with coumadin clinic. FYI - patient has been scheduled for a 1 week follow up inr on 01/05/18 12 LEAD ELECTROCARDIOGRAM Observed: 12/28/2017 Status: F Source: ROY 1:37 PM [facility] REPOSITORY [facility] Cardiovascular Services [address] [place] [address] 12 Lead EKG 12/24/17 1718 MR#: [id number] Acct: [id number] Name: SIMA MULLEN Rep #: [id number] : 1935 82 From: Ajit Ramey MD Attending Dr: Lionel Avina DO Status: DIS IN Ordering Dr: Ajit Dawson MD Date: 12/24/17 Location: [facility] Sex: M C Admitted: 12/24/17 Test Reason : SOB Blood Pressure : / mmHG Vent. Rate : 082 BPM Atrial Rate : 340 BPM P-R Int : 000 ms QRS Dur : 118 ms QT Int : 398 ms P-R-T Axes : 000 -33 120 degrees QTc Int : 464 ms Atrial fibrillation Left axis deviation Abnormal ECG Confirmed by AJIT RAMEY ([id number]), sports editor DAMEON RIVERO ([id number]) on 12/28/2017 1:36:51 PM Referred By: GEOVANNI Confirmed By:AJIT RAMEY 12/28/17 1336 Date Ajit Ramey MD CC: Ajit Dawson MD; Polo Mitchell MD Signed DISCHARGE SUMMARY Observed: 12/27/2017 Status: F Source: ROY 11:52 AM [facility] REPOSITORY [facility] Medical Records Department [address] [place] [address] Discharge Summary 12/27/17 1145 MR#: [id number] Acct: [id number] Name: SIMA MULLEN Rep #: [id number] : 1935 82 From: Lionel Avina DO PCP: Polo Mitchell MD Status: DIS IN Y Location: [place] [id number] Discharge Date and Diagnosis Date of Admission: 12/24/17 Date of Discharge: 12/26/17 - Primary Discharge Diagnosis #1 acute on chronic diastolic congestive heart failure-EF 55% #2 pulmonary hypertension #3 coagulopathy secondary to Coumadin usage #4 coronary artery disease #5 hyponatremia - Secondary Discharge Diagnosis Chronic Problems Afib (Chronic) Aortic stenosis (Chronic) Hyponatremia (Chronic) CAD (coronary artery disease) (Chronic) Pulmonary HTN (Chronic) Aortic aneurysm (Chronic) Hospital Course and Treatment Operations: None Procedures: 2-D Echocardiogram Summary of Care Provided: The patient is a 82 year old M seen in the emergency room at [facility] with chief complaint of shortness of breath. He was sent in from his PCPs office for evaluation in the emergency room for possible CHF. Patient stated that for the last month he had been increasingly short of breath. Approximately a month ago, patient was taken off a diuretic due to concerns of his low sodium. Workup in the emergency room included a chest x-ray which showed bilateral pleural effusions which were not severe, there is also noted to be an area of either infiltrate or more likely atelectasis at the right lung base. Beta natruretic peptide was elevated at 488, INR was elevated to 3.5, sodium was 130. Patient was admitted for acute on chronic diastolic congestive heart failure as his past echocardiogram showed an intermediate ejection fraction of 50%. Past echocardiogram and also shown pulmonary hypertension. Patient was placed on IV Lasix, he was monitored on telemetry, and underwent an echocardiogram which showed an ejection fraction 55% with mild pulmonary hypertension. Patient improved during his hospital stay, on 12/26/17, patient was seen and examined and felt to be in stable condition for discharge home. Further note, patient's INR was elevated and his Coumadin was held for his 3 day hospitalization, at the time of discharge, his INR was 2.9 and he was instructed to go back on Coumadin only at 2.5 mg daily and get his INR checked early the following week. Patient also had some hematuria on admission, this did not recur during his admission and he was instructed to have a recheck on his urine by his PCP. Discharge Activity: Return to Normal Activity Weight Bearing Status: Full weight bearing Home Medications: Medications to take at Discharge Doxazosin Mesylate [Cardura] 4 mg PO QHS 08/14/13 Metoprolol Tartrate [Lopressor (beta hollie)] 50 mg PO BID 08/14/13 Atorvastatin Calcium [Lipitor] 20 mg PO QHS 10/21/15 Clopidogrel Bisulfate [Plavix] 75 mg PO DAILY 10/18/17 Aspirin [Aspirin, Baby] 81 mg PO QHS 12/10/17 Furosemide [Lasix] 40 mg PO DAILY #30 tab 12/26/17 Potassium Chloride 20 meq PO DAILY #60 tablet.er 12/26/17 Warfarin Sodium 2.5 mg PO DAILY #1 tablet 12/26/17 Following Prescrptions Were Given to Patient: Furosemide [Lasix] 40 mg PO DAILY #30 tab Potassium Chloride 20 meq PO DAILY #60 tablet.er Warfarin Sodium 2.5 mg PO DAILY #1 tablet Primary Care Physician: Polo Mitchell MD [Primary Care Provider] - Please follow up with your Primary Care Physician in: ON 12/29/17, HAVE YOUR INR CHECKED Please Follow Up With: Polo Mitchell MD Disposition: Home Minutes spent on discharge:: 36 Patient Condition:: Stable Meaningful Use Info Meaningful Use Diagnoses (Choose all that apply): CHF - CHF TRIP/ARB ordered at discharge?: No Reason TRIP/ARB not ordered?: Allergy - normal EF-not indicated Documented LVEF (%): 34 Code Visit Inpatient E AND M: 19451 Disch Hosp 12/27/17 1152 <Electronically signed by Lionel Avina DO> Date Lionel Avina DO Cosigner Signature (if applicable): Date CC: Lionel Avina DO; Polo Mitchell MD Signed DISCHARGE INSTRUCTION Observed: 12/26/2017 Status: F Source: SUSAN 1:47 PM [facility] REPOSITORY [facility] Medical Records Department [address] [place] [address] Instructions for Home/Discharge Instructions 12/26/17 1345 MR#: [id number] Acct: [id number] Name: SIMA MULLEN Rep #: [id number] : 1935 82 From: Lionel Avina DO PCP: Polo Mitchell MD Status: ADM IN - Discharge Diagnoses Current Active Problems: Current Active and Chronic Problems Afib (Chronic) CHF (congestive heart failure) (Acute) Aortic stenosis (Chronic) Hyponatremia (Chronic) CAD (coronary artery disease) (Chronic) Pulmonary HTN (Chronic) Aortic aneurysm (Chronic) You will use the following diet at home:: No restrictions Your food should be the consistency of: Regular Your liquids should be the consistency of: Regular/Thin Discharge Activity: Return to Normal Activity Weight Bearing Status: Full weight bearing Allergies/Adverse Reactions: Allergies No Known Allergies Allergy (Verified 12/24/17 16:05) Medications to take at Discharge Doxazosin Mesylate [Cardura] 4 mg PO QHS 08/14/13 Metoprolol Tartrate [Lopressor (beta hollie)] 50 mg PO BID 08/14/13 Atorvastatin Calcium [Lipitor] 20 mg PO QHS 10/21/15 Clopidogrel Bisulfate [Plavix] 75 mg PO DAILY 10/18/17 Aspirin [Aspirin, Baby] 81 mg PO QHS 12/10/17 Furosemide [Lasix] 40 mg PO DAILY #30 tab 12/26/17 Potassium Chloride 20 meq PO DAILY #60 tablet.er 12/26/17 Warfarin Sodium 2.5 mg PO DAILY #1 tablet 12/26/17 The following prescriptions were given: Furosemide [Lasix] 40 mg PO DAILY #30 tab Potassium Chloride 20 meq PO DAILY #60 tablet.er Warfarin Sodium 2.5 mg PO DAILY #1 tablet Primary Care Physician: Polo Mitchell MD [Primary Care Provider] - Please follow up with your Primary Care Physician in: ON 12/29/17, HAVE YOUR INR CHECKED 12/26/17 1347 <Electronically signed by Lionel Avina DO> Date Lionel Avina DO CC: Polo Mitchell MD BASIC METABOLIC Collected: 12/26/2017 Status: F Source: SUSAN PROFILE ([facility]) 12:25 PM [facility] REPOSITORY TYPE CODE TESTS RESULT OUT OF RANGE REFERENCE UNITS LAB L501.0100 74-106 mg/dL Normal GLU 97 Result Comment: Please note revised GLUCOSE reference range effective 2017. LAB L501.1000 7-18 mg/dL High BUN 21 LAB L501.1100 0.70-1.30 mg/dL Low CREAT,SERUM 0.64 Result Comment: The validity of the calculated GFR AND GFRAA in patients over 70 years has not been determined. Clinical correlation is essential. LAB L501.1110 >60 mL/min Normal EST GFR 127 Result Comment: Non- GFR Calc LAB L501.1115 >60 mL/min Normal EST GFR - AA 154 Result Comment: GFR Calc LAB L501.1255 ml/min Normal Estimated CRCL 56.05 LAB L501.1300 10-20 RATIO High BUN/CRE 32.7 LAB L501.2200 8.5-10 mg/dL Low .1 CA 7.8 LAB L501.5300 136-14 mmol/L Low 5 NA 134 LAB L501.5600 3.5-5. mmol/L Normal 1 K 4.9 LAB L501.5900 98-107 mmol/L Low CL 97 LAB L501.6100 21.0-3 mmol/L Normal 2.0 CO2 31.0 LAB L501.6200 5-15 Normal GAP 6 Performed By: #### L500.2500 #### [facility] [address] [place], [address] ECHOCARDIOGRAM COMPLETE Observed: 12/25/2017 Status: F Source: ROY 11:42 AM [facility] RE[facility]ITORY [facility] Cardiovascular Services [address] [place] [address] Echo Complete 12/25/17 1014 MR#: [id number] Acct: [id number] Name: SIMA MULLEN Rep #: [id number] : 1935 82 From: Jordy Jordan MD Attending Dr: Cr PRADO,[place] Status: ADM IN Ordering Dr: Lionel Avina DO Date: 12/25/17 Location: [facility] Sex: M C Admitted: 12/24/17 Reason For Study: AFIB/Flutter Procedure This was a 2D Doppler, Color Flow transthoracic echocardiogram. The study was technically difficult. Exam performed portable in patient room. Left Ventricle Normal LV size. Left ventricular systolic function is normal. The estimated ejection fraction is 55 %. Unable to assess diastolic dysfunction. No regional wall motion abnormalities noted. Right Ventricle Normal RV size. Normal systolic function. Atria The left atrium is severely enlarged. The right atrium is moderately enlarged. Probable chiari network. Mitral Valve Normal mitral valve. Mild (1+) eccentric mitral valve insufficiency. Tricuspid Valve Normal tricuspid valve. Mild to moderate (1-2+) tricuspid valve insufficiency. Pulmonary artery systolic pressure is 43 mmHg. Aortic Valve Stable appearing bioprosthetic aortic valve apparatus. Pulmonic Valve Normal pulmonic valve. Mild (1+) pulmonic valve insufficiency. Great Vessels Normal aortic root. The pulmonary artery is normal size. Normal inferior vena cava. Pericardium/Pleural No pericardial effusion. MMode/2D Measurements AND Calculations LVIDd: 5.0 cm IVSd: 1.6 cm Ao root diam: 2.4 cm LVIDs: 3.7 cm LVPWd: 0.76 cm FS: 25.5 % LAV(MOD-bp): 140.9 ml LA A4 area: 37.5 cm2 RA A4 area: 29.2 cm2 LAV(MOD-bp) Indexed: 71.1 ml/m2 LAV(MOD-sp2): 132.9 ml LAV(MOD-sp4): 140.0 ml Doppler Measurements AND Calculations MV E max machelle: 109.3 cm/sec Lat Peak E' Machelle: 10.5 cm/sec Med Peak E' Machelle: 5.7 cm/sec E/E' lat: 10.4 E/E' med: 19.2 Ao V2 max: 169.2 cm/sec LV V1 max: 98.4 cm/sec PA V2 max: 107.7 cm/sec Ao max P.5 mmHg LV V1 max P.9 mmHg Ao V2 mean: 114.7 cm/sec LV V1 mean P.9 mmHg Ao mean P.8 mmHg LV V1 mean: 65.1 cm/sec Ao V2 VTI: 34.7 cm LV V1 VTI: 20.3 cm PI end-d machelle: 109.8 cm/sec TR max machelle: 311.0 cm/sec TR max P.8 mmHg Interpretation Summary Normal LV size. Left ventricular systolic function is normal. The estimated ejection fraction is 55 %. Unable to assess diastolic dysfunction. Mild to moderate (1-2+) tricuspid valve insufficiency. Stable appearing bioprosthetic aortic valve apparatus. Compared to the previous the WMA has improved and ther is a bioprothetic aortic valve Ordering Physician: Lionel Avina Referring Physician: Polo Mitchell Performed By: Negin Bryan, SHAZIA, RVT 12/25/17 1141 Date Jordy Jordan MD CC: Lionel Avina DO; Polo Mitchell MD Date Dictated: 12/25/17 1014 Date Transcribed: 12/25/17 1141 Admissions Representative: Signed BASIC METABOLIC Collected: 12/25/2017 Status: F Source: SUSAN PROFILE (BMP) 5:08 AM [facility] REPOSITORY TYPE CODE TESTS RESULT OUT OF RANGE REFERENCE UNITS LAB L501.0100 74-106 mg/dL High GLU 143 Result Comment: Fasting Glucose result greater than or equal to 126 mg/dL suggests DIABETES MELLITUS per A.D.A. criteria. Please note revised GLUCOSE reference range effective 2017. LAB L501.1000 7-18 mg/dL Normal BUN 9 LAB L501.1100 0.70-1.30 mg/dL Low CREAT,SERUM 0.60 Result Comment: The validity of the calculated GFR AND GFRAA in patients over 70 years has not been determined. Clinical correlation is essential. LAB L501.1110 >60 mL/min Normal EST GFR 137 Result Comment: Non- GFR Calc LAB L501.1115 >60 mL/min Normal EST GFR - AA 165 Result Comment: GFR Calc LAB L501.1255 ml/min Normal Estimated CRCL 56.05 LAB L501.1300 10-20 RATIO Normal BUN/CRE 15.0 LAB L501.2200 8.5-10 mg/dL Low .1 CA 7.7 LAB L501.5300 136-14 mmol/L Low 5 NA 129 LAB L501.5600 3.5-5. mmol/L Normal 1 K 5.0 LAB L501.5900 98-107 mmol/L Low CL 94 LAB L501.6100 21.0-3 mmol/L Normal 2.0 CO2 29.0 LAB L501.6200 5-15 Normal GAP 6 Performed By: #### L500.2500 #### [facility] [address] [place], [address] PROTHROMBIN TIME W/INR Collected: 12/25/2017 Status: F Source: ROY 5:08 AM [facility] REPOSITORY TYPE CODE TESTS RESULT OUT OF RANGE REFERENCE UNITS LAB L300.4150 11.7-14.9 SECONDS High PROTIME 30.6 LAB L300.4200 Normal INR 2.9 Performed By: #### L300.3900 #### [facility] [address] [place], [address] EMERGENCY DEPARTMENT Observed: 12/25/2017 Status: F Source: ROY SUMMARY 12:29 AM [facility] REPOSITORY [facility] Medical Records Department [address] [place] [address] Emergency Department Summary 12/24/17 1707 MR#: [id number] Acct: [id number] Name: SIMA MULLEN Rep #: [id number] : 1935 82 From: Ajit Dawson MD PCP: Polo Mitchell MD Status: ADM IN - ER Visit Summary Date of Service: 12/24/17 Chief Complaint: Wheezing History of Present Illness: The patient is a 82 M with wheezing which has been worsening over the past month. He was referred to the emergency department for possible CHF exacerbation. He has a history of coronary disease, [place], CHF, asthma, hypertension, hyperlipidemia, and atrial fibrillation. He said his INR has been elevated. He did pass a clot in his urine but it has cleared. He has also had bruising to his abdominal wall for the past several weeks. He says that he has no abdominal pain or blood in his stool. No headaches. No joint pains that are new. Physical Examination: Afebrile and vital signs unremarkable except for a blood pressure of 159/72 and a heart rate of 118. The patient is sitting upright. Breathing quietly. HEENT exam unremarkable. Lungs show wheezing throughout all lynch. Abdomen soft and nontender. He does have ecchymosis over most of his anterior abdominal wall. Extremities show symmetric bilateral pitting edema. He is alert and oriented and mentating appropriately. Test Results: EKG on the labs, chest x-ray, urinalysis pending. Emergency Department Course and Treatment: Patient was treated with oxygen and aerosols while awaiting results. EKG showed atrial fibrillation a rate of 82. Hemoglobin 10.1. Sodium 130, chloride 97, INR 3.5. Urinalysis pending. BNP pending. Troponin normal. Chest x-ray showed edema versus infiltrate on the right with bilateral effusions and an enlarged cardiac silhouette. Patient received oxygen, aerosols, Solu-Medrol, and Lasix while awaiting his results. Patient has remained stable. Will need continued inpatient care for his multiple medical issues. Hospitalist was contacted. Treatment Plan: As above Disposition: Admission Impression: 1. CHF 2. Elevated INR This note was generated with [employer] dictation software. It may contain incorrect words, spelling, and punctuation that were not noted in review of the chart prior to signing ED Disposition - Plan for ED Patient: Chief Complaint: Shortness of Breath Referrals: Polo Mitchell MD [Primary Care Provider] - What to do if you have Problems For any increased pain, shortness of breath, bleeding, nausea or vomiting, chest pain, or any unexpected problems, contact your Primary Care Provider. Call [facility] ([phone]) or report to the closest Emergency Room. Call 911 if necessary. 12/25/17 0029 <Electronically signed by Ajit Dawson MD> Date Ajit Dawson MD Cosigner Signature (If Indicated): Date CC: Polo Mitchell MD PROGRESS Observed: 12/24/2017 Status: COMPLETED Source: ANMOORE 8:17 PM [facility] REPOSITORY HNO ID: [id number] Author: Polo Mitchell Service: (none) Author Type: Physician Type: Progress Notes Filed: 12/24/2017 8:19 PM Note Text: Admitted for congestive heart failure. PROGRESS Observed: 12/24/2017 Status: COMPLETED Source: ANMOORE 8:11 PM [facility] REPOSITORY HNO ID: [id number] Author: Quynh Brewster Ma Service: (none) Author Type: (none) Type: Progress Notes Filed: 12/24/2017 8:19 PM Note Text: See other enc, pt was sent to ER. HISTORY AND PHYSICAL Observed: 12/24/2017 Status: F Source: ROY EXAM 8:07 PM [facility] REPOSITORY [facility] Medical Records Department [address] [place] [address] History and Physical 12/24/17 1810 MR#: [id number] Acct: [id number] Name: SIMA MULLEN Rep #: [id number] : 1935 82 From: Nik CHEN PCP: Polo Mitchell MD Status: ADM IN Y Location: [place] [address] ADDENDUM by Lionel Avina DO on 12/24/17 at 2006 Code Visit Patient was seen and examined independently of Nik Westfall in the emergency room at [facility], patient came to the emergency room for evaluation of increasing shortness of breath. He was seen in his PCPs office today and instructed to go to the ER for possible CHF. Patient states that he has been increasingly short of breath over the last month, he denies any fevers, chills, or purulent sputum production. Patient was taken off a diuretic approximately a month ago by his family physician due to low sodium. Examination of the patient in the emergency room revealed expiratory wheezes bilaterally, patient had +2 pitting edema in the lower legs, heart rate and rhythm was irregular- he appear to be in atrial fibrillation which is a chronic rhythm for the patient. Patient was alert and able to speak sentences, he was on low flow oxygen for comfort measures. Workup in the ER included a chest x-ray which showed bilateral pleural effusions which were not severe, there is also noted to be what appeared to be either an infiltrate or atelectasis at the right lung base-I feel this is probably most likely atelectasis. Patient's INR was elevated at 3.5, sodium was 130, and hemoglobin was 10.1. Troponin was normal, her analysis was unremarkable, beta natruretic peptide was elevated at 488.9. Patient will be admitted for acute on chronic diastolic congestive heart failure, past cardiogram showed an intermediate ejection fraction of 50% and the presence of pulmonary hypertension, echocardiogram will be repeated. Patient will be given IV Lasix and repeat chest x-ray will be obtained in the morning, patient's Coumadin will be held and INR will be rechecked. I have reviewed Nik Westfall's history and physical and plan of care and endorse both Inpatient E AND M: 76692 Init Hosp L3 12/24/172006 <Electronically signed by Lionel Avina DO> Date Lionel Avnia DO cc: GUSTAVO Westfall; Lionel Avina DO; Polo Mitchell MD * Signed Problem List (1) CHF (congestive heart failure) Status: Acute (2) Afib Status: Chronic (3) Aortic stenosis Status: Chronic (4) Hyponatremia Status: Chronic (5) CAD (coronary artery disease) Status: Chronic (6) Pulmonary HTN Status: Chronic (7) Aortic aneurysm Status: Chronic History of Present Illness Date of Admission: 12/24/17 Chief Complaint: SOB The patient is a 82 year old M who presented to the ER with SOB for about a month but worse in the past several days. He has a hx of CHF, CAD s/p CABG, pulmonary HTN, aortic stenosis s/p TAVR, and chronic AF, and a questionable asthma hx. He has been wheezy at home with a nonproductive cough. He has swelling of his BLE, he does not think this is much worse than his normal. He was taken off HCTZ about 1 month ago and is on no other diuretics, and has not been urinating as much. He is SOB with both rest and exertion. Initially he was tachy in the ER but this resolved without additional intervention. He has no CP. He is currently on 2 lpm O2, he does not use any at home. He follows Dr. Olivares as an outpatient. He had an echo in 2016 prior to his TAVR procedure and an EF of 50% at that time. He states he does not have his aortic aneurysm checked routinely. He denies PND and orthopnea. He also reported a blood clot in his urine. Had an episode of nausea and vomiting in the ER. He denies trauma to his chest / abdomen. Bruising has been present for abotu 1 month. [] Past Medical History Past Medical History (Chronic Problems): Chronic Problems Afib (Chronic) Aortic stenosis (Chronic) Hyponatremia (Chronic) CAD (coronary artery disease) (Chronic) Pulmonary HTN (Chronic) Aortic aneurysm (Chronic) Allergies No Known Allergies Allergy (Verified 12/24/17 16:05) Home Medications: Ambulatory Orders Medication Instructions Recorded Doxazosin Mesylate [Cardura] 4 mg PO QHS 08/14/13 Metoprolol Tartrate [Lopressor] 50 mg PO BID 08/14/13 Atorvastatin Calcium [Lipitor] 20 mg PO QHS 10/21/15 Surgical History: coronary bypass surgery Psychiatric History: No pertinent psych hx Lives: Alone Smoking Status: Former smoker Tobacco Use: Non-smoker Alcohol: Rare Drugs: None - *Family History Maternal History Items: Cancer Paternal History Items: - - aortic aneurysm Review of Systems Constitutional: Denies: Chills, Fever, Weight Change HEENT: Denies: Head Aches, Sinus Congestion, Sinus Drainage Cardiovascular: Reports: Edema. Denies: Chest Pain, Chest Pressure, Heaviness, Light Headedness, Orthopnea, Palpitations, Paroxysmal Noc. Dyspnea, Syncope Respiratory: Reports: Cough, Shortness of Breath, Shortness of breath at rest, Shortness of breath upon exertion, Wheezing. Denies: Sputum production Gastrointestinal: Denies: Abdominal Pain, Nausea, Vomiting Genitourinary: Reports: Hematuria. Denies: Dysuria Musculoskeletal: Denies: Joint Pain, Joint Tenderness Skin: Reports: - - hematoma. Denies: Rash, Wounds Neurological: Denies: Numbness, Tingling, Focal weakness Psychiatric: Denies: Anxiety, Depression, Homicidal Ideations, Suicidal Ideations Hematologic/ Lymphatic: Denies: Easy Bruising, Easy Bleeding VTE Information - Inpt Only VTE Present on Admission: No VTE Mechan Device Prophylaxis: None VTE Pharm Prophylaxis ordered?: No Reason prophylaxis not ordered:: Medical Contraindication Patient Problems: Active and Suspected Problems CHF (congestive heart failure) (Acute) - Physical Exam General: Alert, Oriented x3, Cooperative HEENT: Atraumatic, PERRLA, EOMI, Normocephalic Neck: Supple, No JVD, Negative Carotid Bruits Lungs: Rales, Wheezes Cardiovascular: No murmurs, Irregular Rate Abdomen: Bowel Sounds Present, Soft, Non Tender, - Extremities: No edema, Capillary Refill Less than 3 Seconds Skin: No rashes, No breakdown, - - hematoma on chest extending to the abdomen. There is scarring from shingles on his back. Musculoskeletal: No Tenderness to Palpation of Joints or Extremities Neurological: Cranial nerves II-XII grossly intact Psych/Mental Status: Normal Affect, Appropriate, Alert and oriented to time, place, person, mood and affect Vital Signs Temp Pulse Resp BP Pulse Ox 97.2 F L 77 24 H 136/74 H 100 12/24/17 16:05 12/24/17 17:21 12/24/17 17:21 12/24/17 16:18 12/24/17 16:18 Oxygen Flow Rate (L/min) 2 Oxygen Delivery Method Nasal Cannula Weight: 81.647 kg Body Mass Index (BMI) 27.3 Laboratory Tests Past 24 Hrs WBC 6.3 RBC 3.45 L Hgb 10.1 L Hct 30.6 L MCV 88.7 MCH 29.3 MCHC 33.0 RDW 14.8 H WBC RBC Hgb Hct MCV MCH MCHC RDW RDW Differential Plt Count MPV Immature Gran % (Auto) Neut % (Auto) Assessment/Plan Active and Suspected Problems CHF (congestive heart failure) (Acute) 1. Acute diastolic CHF exacerbation - CXR c/w CHF, prior hx, more SOB since being off HCTZ. Crackles and wheezing on exam. Prior echo in 2016 with EF 50%. Repeat Echo. Pt will be placed on Lasix 40 q 8. Continue BB. Not currently on Trip-I. EKG with AF. Trop neg. Repeat CXR in AM. 2. Chronic AF - inr supratherapeutic at 3.5. Hold. Continue AF. 3. Anemia, normocytic with Hematuria with blood on UA - holding warfarin. It is unclear why he is on aspirin, plavix, and coumadin. Also atraumatic hematoma on the chest and abdomen. Trend Hgb. Former smoker. 4. CAD - hx of 4 vessel CABG. Continue home meds -asa/statin/plavix/metoprolol 5. - s/p tavr 6. Hx abdominal aortic aneurysm 7. HTN - mildly elevated in ER - trend 8. Prior CVA 15 years ago 9. Former smoker - smoked 25 years. 10. Chronic hyponatremia - HCTZ dc'd for this by PCP. DVT ppx: supratherapeutic INR This patient was seen by Nik Westfall PA-C under the supervision of Dr. Avina. 12/24/17 1840 <Electronically signed by Nik CHEN> Date Nik CHEN 12/24/172001<Electronically signed by Lionel Avina DO> Cosigner Signature: Date (if applicable) Lionel Avina DO CC: GUSTAVO Westfall; Lionel Avina DO; Polo Mitchell MD Signed URINALYSIS, COMPLETE Collected: 12/24/2017 Status: F Source: SUSAN 5:41 PM [facility] REPOSITORY Order Comment: Order Date: 12/24/17 How was Urine Obtained? CLEAN CATCH TYPE CODE TESTS RESULT OUT OF RANGE REFERENCE UNITS LAB L400.3000 Yellow COLOR Normal Yellow LAB L400.3050 Clear Normal CLARITY Clear LAB L400.3200 Normal mg/dl Normal GLUCOSE, UR Normal LAB L400.3300 Negative mg/dL Normal BILIRUBIN URINE Negative LAB L400.3400 Negative mg/dl Normal KETONE UR Negative LAB L400.3465 1.002-1.030 Normal SP.GR. DIPSTX 1.020 LAB L400.3550 5.0 - 8.0 pH UR Normal 6.0 LAB L400.3600 Negative mg/dl PROT Normal DIPSTX Negative LAB L400.3700 Normal mg/dl High 4 UROBILI LAB L400.3750 Negative Normal NITRITE UR Negative LAB L400.3780 Negative /ul High 10 OCCULT BLOOD-UR LAB L400.3800 Negative /ul LEUK Normal ESTERASE Negative LAB L400.4050 0-5 /hpf WBC 0 Normal SEEN LAB L400.4100 0-5 /hpf Normal RBC-UA 0-5 SEEN LAB L400.4150 0-5 /hpf SQUAM 0 Normal EPI SEEN LAB L400.4300 None Seen /hpf 0 Normal BACTERIA SEEN LAB L400.4350 <or=2+ /hpf 0 Normal MUCUS, URINE SEEN Performed By: #### L400.0001 #### [facility] [address] [facility], [address] Observed: 12/24/2017 Status: F Source: ROY INFLUENZA A+B (RAPID 5:24 PM [facility] REPOSITORY Order Date: 12/24/17 FLU A/B Rapid Negative test results should be confirmed by culture. Order Rapid Viral Culture for Influenzae A+B ([id number]) if clinically indicated. Influenza Ag, Direct Presumptive NEGATIVE for Influenza A/B Antigen (See Note) Performed By: #### M101.0101 #### [facility] [address] [facility], [address] CHEST 1 VIEW Observed: 12/24/2017 Status: F Source: ROY (PORTABLE) 4:45 PM [facility] REPOSITORY [facility] Imaging Services [address] [place] [id number] Chest 1 View (Portable) MR#: [id number] Acct: [id number] Name: SIMA MULLEN Rep #: [id number] : 1935 M 82 From: Yonis Dejesus MD PCP: Polo Mitchell MD Status: REG ER Study: Chest 1 View (Portable) Date of Exam: 12/24/17 Exam# [id number] Ordering Dr: Ajit Dawson MD STUDY: X-RAY CHEST REASON FOR EXAM: Male, 82 years old. Cough. Shortness of breath. TECHNIQUE: Single AP portable view of the chest. COMPARISON: January 29, 2016 FINDINGS: There are monitoring devices. There is interstitial accentuation of the lungs. Right lower lung airspace opacities. Small bilateral pleural effusions. There are granulomatous calcifications. Sternal cerclage wires are present from a prior sternotomy. Aortic valve prosthesis. Cardiac enlargement. Normal mediastinum and tian. Normal visualized pulmonary arteries. There is atherosclerotic calcification of the aortic arch with tortuosity. There is demineralization of the osseous structures. Normal visualized ribs, clavicles, and shoulders. There is no demonstrated abnormality of the visualized soft tissue structures of the upper abdomen. RAD/Chest 1 View (Portable) IMPRESSION: Right lower lung infiltrate or edema. Bilateral pleural effusions. Cardiac enlargement. Electronically Signed: Yonis Dejesus MD at 17:23 EST , Service support , CC: Ajit Dawson MD; Polo Mitchell MD Admissions Representative: Signed BASIC METABOLIC Collected: 12/24/2017 Status: F Source: SUSAN PROFILE (BMP) 4:30 PM [facility] REPOSITORY Order Comment: 'TROP' Serial specimen #1, #2, #3, or #4: 1 TYPE CODE TESTS RESULT OUT OF RANGE REFERENCE UNITS LAB L501.0100 74-106 mg/dL Normal GLU 99 Result Comment: Please note revised GLUCOSE reference range effective 2017. LAB L501.1000 7-18 mg/dL Normal BUN 9 LAB L501.1100 0.70-1.30 mg/dL Low CREAT,SERUM 0.58 Result Comment: The validity of the calculated GFR AND GFRAA in patients over 70 years has not been determined. Clinical correlation is essential. LAB L501.1110 >60 mL/min Normal EST GFR 143 Result Comment: Non- GFR Calc LAB L501.1115 >60 mL/min Normal EST GFR - AA 173 Result Comment: GFR Calc LAB L501.1255 ml/min Normal Estimated CRCL 56.05 LAB L501.1300 10-20 RATIO Normal BUN/CRE 15.5 LAB L501.2200 8.5-10 mg/dL Low .1 CA 7.6 LAB L501.5300 136-14 mmol/L Low 5 NA 130 LAB L501.5600 3.5-5. mmol/L Normal 1 K 4.9 LAB L501.5900 98-107 mmol/L Low CL 97 LAB L501.6100 21.0-3 mmol/L Normal 2.0 CO2 29.0 LAB L501.6200 5-15 Low GAP 4 Performed By: #### L500.2500, L501.4010 #### [facility] [address] [place], [address] TROPONIN-I Collected: 12/24/2017 Status: F Source: ROY 4:30 PM [facility] REPOSITORY Order Comment: 'TROP' Serial specimen #1, #2, #3, or #4: 1 TYPE CODE TESTS RESULT OUT OF RANGE REFERENCE UNITS LAB L501.4010 <0.06 ng/mL Normal < 0.02 TROPONIN-I Result Comment: TROPONIN-I EXPECTED VALUES <0.05 NEGATIVE 0.06 - 0.59 AT RISK OF [place] > OR = 0.60 SUGGEST [place] Performed By: #### L500.2500, L501.4010 #### [facility] [address] [facility]. [place], [place], [address] PROTHROMBIN TIME W/INR Collected: 12/24/2017 Status: F Source: ROY 4:30 PM [facility] REPOSITORY TYPE CODE TESTS RESULT OUT OF REFERENCE UNITS RANGE LAB L300.4150 11.7-14.9 SECONDS High PROTIME 35.2 LAB L300.4200 High alert INR 3.5 Result Comment: RESULTS CALLED TO JOSE ASSISTANT BUYER 12/24/17 1737 Danette Bergman. REPORT READ BACK BY SAME . Performed By: #### L300.3900 #### [facility] [address] [facility]. [place], [place], [address] CBC W/DIFF, AUTOMATED Collected: 12/24/2017 Status: F Source: ROY 4:30 PM [facility] REPOSITORY TYPE CODE TESTS RESULT OUT OF RANGE REFERENCE UNITS LAB L100.1000 4.4-11.0 K/mm3 Normal WBC 6.3 LAB L100.1200 4.6-6.2 M/mm3 Low RBC 3.45 LAB L100.1300 13.0-16.5 g/dl Low HGB 10.1 LAB L100.1400 40-54 % Low HCT 30.6 LAB L100.1500 80-94 fL Normal MCV 88.7 LAB L100.1600 27.0-32.0 pg Normal MCH 29.3 LAB L100.1700 32-36 g/gl Normal MCHC 33.0 LAB L100.1810 11.6-14.6 % High RDW CV 14.8 LAB L100.1820 35.1-43.9 fl High RDW SD 48.3 LAB L100.1900 150-450 K/mm3 Normal PLT 264 LAB L100.2000 6.2-12.0 fl Normal MPV 9.1 LAB L100.2100 47-70 % High NEUT% 75.3 LAB L100.2200 19-41 % Low LY% 8.5 LAB L100.2300 0-10 % Normal MONO% 9.1 LAB L100.2400 0-5 % High EO% 6.6 LAB L100.2500 0-1 % Normal BASO% 0.2 LAB L100.2550 0.0-0.9 % Normal IM GRAN % 0.300 Result Comment: IG% - Immature Granulocytes (promyelocytes, myelocytes and metamyelocytes) > 1% indicates that a LEFT SHIFT is Present. LAB L100.2620 2.0-7.7 X10 3/uL Normal Absolute Neut 4.8 LAB L100.2720 0.83-4.51 X10 3/ul Low Absolute Lymph 0.54 LAB L100.4500 Normal SMEAR COMMENT SEE COMMENT Result Comment: LYMPHOPENIA NOTED LAB L100.5500 ADEQ PLT EST Normal ADEQUATE LAB L100.7300 ANISO Normal RARE LAB L100.8000 ACANTHOCYTE Normal RARE LAB L100.8200 OVALOCYTE Normal RARE Performed By: #### L100.0100 #### [facility] [address] [place], [address] BNP,B-TYPE NATRIURETIC Collected: 12/24/2017 Status: F Source: ROY PEPTIDE 4:30 PM [facility] REPOSITORY TYPE CODE TESTS RESULT OUT OF RANGE REFERENCE UNITS LAB L503.6620 0-100 pg/mL High B-TYPE 488.9 RISA PEP Performed By: #### L503.6620 #### [facility] [address] [place], [place], [address] PROGRESS Observed: 12/24/2017 Status: COMPLETED Source: ANMOORE 3:50 PM [facility] REPOSITORY HNO ID: [id number] Author: Shea Ramirez RN Service: (none) Author Type: (none) Type: Progress Notes Filed: 12/24/2017 3:57 PM Note Text: Patient had INR completed at [facility] Patient's INR is 4.0 Patient is currently taking 5 mg daily and skipped yesterday's dose Patient's last dose change was 12/02/17 due to high INR at 3.7 Patient has had no medication and no change in diet. Patient sounded extremely wheezy, appeared pale and very SOB. This nurse encouraged him to visit to be evaluated immediately. Patient verbalized understanding and stated he would go. Patient also stated he has a large area of hematoma and bruising on the right side of his body. He has also observed blood clots in his urine and possibly pink urine at times. Also states he has gained weight recently. Advised patient that they would be contacted regarding medication dose and follow-up once reviewed by provider. After provider review, please contact patient with information and schedule follow-up appointment with coumadin clinic. PROGRESS Observed: 12/24/2017 Status: COMPLETED Source: ANMOORE 3:16 PM [facility] REPOSITORY HNO ID: [id number] Author: Dashawn Ordonez Service: (none) Author Type: Physician Type: Progress Notes Filed: 12/24/2017 3:53 PM Note Text: Patient presents with: Cough Wheezing: x1 month HPI: Cough and wheezing for a couple of months. Short of breath for 2-3 weeks. Positive symptoms: wheezing, sleeping disturbance from wheezing, cough-non productive, dyspnea on minor effort, trouble bending over to tie shoes, Rhinorrhea, leg swelling, Negative symptoms: Sorethroat, Fever, Chest pain, heart racing OTC: proventil inhaler. Off HCTZ since September because of hyponatremia. Evaluated for unprovoked hematoma of the torso last month. He reports his INR today was still 4. PAST MEDICAL HISTORY Diagnosis Date - Acute myocardial infarction, unspecified site 2003 Myocardial Infarction - Acute, but ill-defined, cerebrovascular disease 2001 h/o right arm and leg paralysis, resolved - Anemia 08/04/2017 - Asthma 12/20/2009 - Atrial fibrillation (HCC) - Benign localized hyperplasia of prostate with urinary obstruction and other lower urinary tract symptoms (LUTS)(600.21) 12/20/2009 - Congestive heart failure (HCC) - CORONARY ATHEROSCLER UNSPEC VESSEL 02/28/2004 4 V CABG at age 69: done at the [facility] Creat 1.1 in 07-27 A1C 6.4% in 07-27 - DISSECTING ABDOM AORTIC ANEURYSM 02/28/2004 Being monitored as of 07-27: seeing Vascular in [place] Hct 43.9% in 07-27 - Diverticulosis of colon (without mention of hemorrhage) - HYPERLIPIDEMIA NEC/NOS 02/28/2004 LDL 78, HDL 35, TG 80 in 07-27 - Mixed hyperlipidemia 1984 Hyperlipidemia - Stroke (HCC) - Tobacco use disorder 08/08/2009 Smoked 1 ppd from about age [age] - Unspecified essential hypertension Essential hypertension - Valvular heart disease 12/20/2009 Mitral valve, Aortic stenosis. MEDICATIONS: Current Outpatient Prescriptions: warfarin (COUMADIN) 5 mg tablet 5 mg daily or as directed albuterol HFA (PROVENTIL HFA) 90 mcg/actuation inhaler Inhale 2 Puffs as instructed every 6 hours as needed. Gilbert-3 Fatty Acids (FISH OIL) 500 mg cap Take by mouth once daily. Methylsulfonylmethane (MSM) 1,000 mg tab Take by mouth. doxazosin (CARDURA) 4 mg tablet Take 1 tablet by mouth once daily. aspirin, enteric coated (ASPIR-LOW) 81 mg EC tablet Take 1 tablet by mouth once daily. ascorbic acid, vitamin C, (VITAMIN C) 500 mg tablet Take 500 mg by mouth once daily. CALCIUM CARBONATE (CALCIUM 500 ORAL) Take by mouth once daily. UBIDECARENONE/VITAMIN E MIXED (COQ10 SG 100 ORAL) Take by mouth once daily. metoprolol tartrate, short acting, (LOPRESSOR) 50 mg tablet Take 1 tablet by mouth every 12 hours. senna-docusate (SENNA-S) 8.6-50 mg per tablet Take 1 tablet by mouth twice daily. atorvastatin (LIPITOR) 40 mg tablet Take 0.5 tablets by mouth daily at bedtime. For cholesterol. nitroglycerin sublingual 0.4 mg SL tablet Dissolve 1 tablet under the tongue every 5 minutes as needed for Chest Pain. GLUC HCL/CSANA/GLY-AM-GLY,MX/C (QZZNKGYF-KVPIDEDAHY-OX GLYCN- C ORAL) Take 1 tablet by mouth once daily. acetaminophen (TYLENOL) 325 mg ORAL tablet Take 650 mg by mouth every 6 hours as needed. MULTIVITAMIN ORAL TAB Take one(1) tablet daily. No current facility-administered medications for this visit. ALLERGIES: ALLERGIES Allergen Reactions - No Known Allergies nkda VITALS: BP 130/80 Pulse 93 Temp 36.2 ?C (97.1 ?F) (Left Tympanic) Resp 30 Wt 87.5 kg (193 lb) SpO2 95% BMI 29.35 kg/m2 Last 6 Encounter Wt Readings: Date: Wt: 12/24/2017 87.5 kg (193 lb) 12/15/2017 86.6 kg (191 lb) 09/29/2017 82.1 kg (181 lb) 09/25/2017 85.5 kg (188 lb 9.6 oz) 08/04/2017 81.6 kg (180 lb) 02/02/2017 79.4 kg (175 lb) PHYSICAL EXAM: GEN: mildly ill appearing. HEENT: PERRL, EOMI, conjunctiva clear Throat: moist mucous membranes, Neck: supple, no thyromegaly, no lymphadenopathy HEART: irregularly irregular rhythm, normal rate, + murmurs LUNGS: Scattered wheezes, increased WOB at rest BACK: scattered ecchymosis mid and lower back. EXT: 2+ pitting edema of lower legs ASSESSMENT/PLAN: 1. SOB (shortness of breath) - ICD9: 786.05, ICD10: R06.02 (primary diagnosis) 2. Coronary artery disease involving cachil dehe coronary artery of cachil dehe heart without angina pectoris - ICD9: 414.01, ICD10: I25.10 3. Atrial fibrillation, unspecified type (HCC) - ICD9: 427.31, ICD10: I48.91 4. Aortic valve stenosis, etiology of cardiac valve disease unspecified - ICD9: 424.1, ICD10: I35.0 5. Hyponatremia - ICD9: 276.1, ICD10: E87.1 6. Uncomplicated asthma, unspecified asthma severity, unspecified whether persistent - ICD9: 493.90, ICD10: J45.909 Suspect congestive heart failure. I confirmed with his PCP that he is not normally dyspneic at rest at baseline. He will go to [facility] ER for further evaluation and treatment. Report called. Dashawn Ordonez MD .smdi CNOV Observed: 12/24/2017 Status: COMPLETED Source: ANMOORE 3:15 PM [facility] REPOSITORY Office Visit (WSTR) SEBASSIMA Mccollum ([id number]) 1935 M TXT Date Time Provider Department 12/24/17 3:15 PM DASHAWN ORDONEZ [facility] During your visit today, we recorded the following information about you: Temperature Pulse Respiration Blood pressure 97.1 degrees 93/minute 30/minute 130/80 Weight 87.5 kg Dashawn Ordonez MD 12/24/2017 3:53 PM Signed Patient presents with: Cough Wheezing: x1 month HPI: Cough and wheezing for a couple of months. Short of breath for 2-3 weeks. Positive symptoms: wheezing, sleeping disturbance from wheezing, cough-non productive, dyspnea on minor effort, trouble bending over to tie shoes, Rhinorrhea, leg swelling, Negative symptoms: Sorethroat, Fever, Chest pain, heart racing OTC: proventil inhaler. Off HCTZ since September because of hyponatremia. Evaluated for unprovoked hematoma of the torso last month. He reports his INR today was still 4. 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 MEDICATIONS: Current Outpatient Prescriptions: warfarin (COUMADIN) 5 mg tablet 5 mg daily or as directed albuterol HFA (PROVENTIL HFA) 90 mcg/actuation inhaler Inhale 2 Puffs as instructed every 6 hours as needed. Gilbert-3 Fatty Acids (FISH OIL) 500 mg cap Take by mouth once daily. Methylsulfonylmethane (MSM) 1,000 mg tab Take by mouth. doxazosin (CARDURA) 4 mg tablet Take 1 tablet by mouth once daily. aspirin, enteric coated (ASPIR-LOW) 81 mg EC tablet Take 1 tablet by mouth once daily. ascorbic acid, vitamin C, (VITAMIN C) 500 mg tablet Take 500 mg by mouth once daily. CALCIUM CARBONATE (CALCIUM 500 ORAL) Take by mouth once daily. UBIDECARENONE/VITAMIN E MIXED (COQ10 SG 100 ORAL) Take by mouth once daily. metoprolol tartrate, short acting, (LOPRESSOR) 50 mg tablet Take 1 tablet by mouth every 12 hours. senna-docusate (SENNA-S) 8.6-50 mg per tablet Take 1 tablet by mouth twice daily. atorvastatin (LIPITOR) 40 mg tablet Take 0.5 tablets by mouth daily at bedtime. For cholesterol. nitroglycerin sublingual 0.4 mg SL tablet Dissolve 1 tablet under the tongue every 5 minutes as needed for Chest Pain. GLUC HCL/CSANA/GLY-AM-GLY,MX/C (TEFPOBXA-FDNIFCYOWA-VC GLYCN- C ORAL) Take 1 tablet by mouth once daily. acetaminophen (TYLENOL) 325 mg ORAL tablet Take 650 mg by mouth every 6 hours as needed. MULTIVITAMIN ORAL TAB Take one(1) tablet daily. No current facility-administered medications for this visit. ALLERGIES: ALLERGIES Allergen Reactions - No Known Allergies nkda VITALS: BP 130/80 Pulse 93 Temp 36.2 ?C (97.1 ?F) (Left Tympanic) Resp 30 Wt 87.5 kg (193 lb) SpO2 95% BMI 29.35 kg/m2 Last 6 Encounter Wt Readings: Date: Wt: 12/24/2017 87.5 kg (193 lb) 12/15/2017 86.6 kg (191 lb) 09/29/2017 82.1 kg (181 lb) 09/25/2017 85.5 kg (188 lb 9.6 oz) 08/04/2017 81.6 kg (180 lb) 02/02/2017 79.4 kg (175 lb) PHYSICAL EXAM: GEN: mildly ill appearing. HEENT: PERRL, EOMI, conjunctiva clear Throat: moist mucous membranes, Neck: supple, no thyromegaly, no lymphadenopathy HEART: irregularly irregular rhythm, normal rate, + murmurs LUNGS: Scattered wheezes, increased WOB at rest BACK: scattered ecchymosis mid and lower back. EXT: 2+ pitting edema of lower legs ASSESSMENT/PLAN: 1. SOB (shortness of breath) - ICD9: 786.05, ICD10: R06.02 (primary diagnosis) 2. Coronary artery disease involving cachil dehe coronary artery of cachil dehe heart without angina pectoris - ICD9: 414.01, ICD10: I25.10 3. Atrial fibrillation, unspecified type (HCC) - ICD9: 427.31, ICD10: I48.91 4. Aortic valve stenosis, etiology of cardiac valve disease unspecified - ICD9: 424.1, ICD10: I35.0 5. Hyponatremia - ICD9: 276.1, ICD10: E87.1 6. Uncomplicated asthma, unspecified asthma severity, unspecified whether persistent - ICD9: 493.90, ICD10: J45.909 Suspect congestive heart failure. I confirmed with his PCP that he is not normally dyspneic at rest at baseline. He will go to [facility] ER for further evaluation and treatment. Report called. Dashawn Ordonez MD .smdi Referring Provider: SELF [200] Allergies As of Date: 12/24/2017 Noted Allergy Reaction NO KNOWN ALLERGIES 04/12/2004 Comments: nkda Date Reviewed: 12/24/2017 Reviewed by: Avril Selby Ma - Fully Assessed Reason for Visit: Cough [28] Wheezing [181] Cmt: x1 month Primary Visit Diagnosis:SOB (shortness of breath) [R06.02] Other Visit Diagnoses:Coronary artery disease involving cachil dehe coronary artery of cachil dehe heart without angina pectoris [I25.10] Atrial fibrillation, unspecified type (HCC) [I48.91] Aortic valve stenosis, etiology of cardiac valve disease unspecified [I35.0] Hyponatremia [E87.1] Uncomplicated asthma, unspecified asthma severity, unspecified whether persistent [J45.909] Prescriptions as of 12/24/2017 Sig: WARFARIN 5 MG TABLET 5 mg daily or as directed ALBUTEROL SULFATE HFA 90 MCG/* Inhale 2 Puffs as instructed * OMEGA-3 FATTY ACIDS 500 MG CA* Take by mouth once daily. METHYLSULFONYLMETHANE 1,000 M* Take by mouth. DOXAZOSIN 4 MG TABLET Take 1 tablet by mouth once d* ASPIRIN 81 MG TABLET,DELAYED * Take 1 tablet by mouth once d* ASCORBIC ACID (VITAMIN C) 500* Take 500 mg by mouth once lefty* CALCIUM 500 ORAL Take by mouth once daily. COQ10 SG 100 ORAL Take by mouth once daily. METOPROLOL TARTRATE 50 MG TAB* Take 1 tablet by mouth every * SENNOSIDES 8.6 MG-DOCUSATE SO* Take 1 tablet by mouth twice * ATORVASTATIN 40 MG TABLET Take 0.5 tablets by mouth lefty* NITROGLYCERIN 0.4 MG SUBLINGU* Dissolve 1 tablet under the t* * CRHMIPUK-QZUWLJNWLL-WI GLYCN-* Take 1 tablet by mouth once d* * ACETAMINOPHEN 325 MG TABLET Take 650 mg by mouth every 6 * * MULTIVITAMIN TABLET Take one(1) tablet daily. 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 CAD (coronary artery disease), cachil dehe coronary *INVALID FOR* More... Acute, but ill-defined, cerebrovascular disease*INVALID FOR*02/02/2017 Hyperlipidemia [E78.5] INVALID FOR* More... More... More... Valvular heart disease [I38] INVALID FOR*02/02/2017 More... Atrial Fibrillation on Coumadin [I48.91] INVALID FOR* Asthma [J45.909] INVALID FOR*02/02/2017 Priority: B More... BPH (benign prostatic hyperplasia) [N40.0] INVALID FOR*08/27/2016 More... Essential hypertension [I10] INVALID FOR* More... Abnormal stress test [R94.39] INVALID FOR*08/27/2016 More... Pre-operative cardiovascular examination [Z01.8*INVALID FOR*09/26/2016 Aortic stenosis s/p transapical AVR [I35.0] INVALID FOR* More... Preop testing [Z01.818] INVALID FOR*09/26/2016 More... Atelectasis [J98.11] INVALID FOR*02/02/2017 Priority: B More... More... SUMMARY INVALID FOR*02/02/2017 Priority: Mild More... Discharge planning issues [Z02.9] INVALID FOR*09/26/2016 Priority: D More... 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] INVALID FOR* Hyponatremia [E87.1] INVALID FOR* Encounter Status:Closed by DASHAWN ORDONEZ MD on 12/24/17 PROTIME Collected: 12/15/2017 Status: F Source: ANMOORE 2:42 PM [facility] REPOSITORY TYPE CODE TESTS RESULT OUT OF RANGE REFERENCE UNITS LAB PSEC 9.7-13.0 sec High PT Sec 34.3 LAB INR 0.9-1.3 High PT INR 3.6 Result Comment: Vitamin K Antagonist (VKA) Therapeutic Range: INR 2 to 3 (Target INR of 2.5) Note: For patients treated with VKA drugs, such as warfarin, the [employer] 2012 Guideline recommends a therapeutic INR range of 2 to 3 (target INR of 2.5). This recommendation includes high-risk patients with antiphospholipid syndrome with previous arterial or venous thromboembolism, current-generation mechanical or bioprosthetic aortic heart valve replacement. Note: Patients with mechanical aortic valve replacement and additional risk factors for thromboembolic events (atrial fibrillation, previous thromboembolism, LV dysfunction, hypercoagulable conditions) or an older generation mechanical AVR (i.e., ball in-Cage) or any mechanical MVR should have a INR therapeutic range of 2.5 to 3.5 (target INR of 3). Freddie GH, et al. Chest 2012, 141:7S-47S Homero LUJAN et al. [facility] 2017, 70: 252-289 Performed By: #### PT, CBCDIF #### [facility] [address] [place], [place] [address] CBC AND DIFFERENTIAL Collected: 12/15/2017 Status: F Source: ANMOORE 2:42 PM [facility] REPOSITORY TYPE CODE TESTS RESULT OUT OF REFERENCE UNITS RANGE LAB WBC 3.70-11.00 k/uL WBC 6.65 LAB RBC 4.20-6.00 m/uL Low RBC 3.69 LAB HGB 13.0-17.0 g/dL Low Hemoglobin 10.7 LAB HCT 39.0-51.0 % Low Hematocrit 34.0 LAB MCV 80.0-100.0 fL MCV 92.1 LAB MCH 26.0-34.0 pG MCH 29.0 LAB MCHC 30.5-36.0 g/dL MCHC 31.5 LAB RDWCV 11.5-15.0 % RDW-CV High 15.1 LAB PLTCT 150-400 k/uL Platelet Count 239 LAB MPV 9.0-12.7 fL MPV 9.9 LAB ANEUT % Neut% 73.4 LAB AANEUT 1.45-7.50 k/uL Abs Neut 4.88 LAB ALYMP % Lymph% 12.8 LAB AALYMP 1.00-4.00 k/uL Low Abs Lymph 0.85 LAB AMONO % Boyle% 9.6 LAB AAMONO <0.87 k/uL Abs Boyle 0.64 LAB AEOS % Eosin% 3.9 LAB AAEOS <0.46 k/uL Abs Eosin 0.26 LAB ABASO % Baso% 0.3 LAB AABASO <0.11 k/uL Abs Baso <0.03 LAB AUNRBC 0 /100 WBC NRBCs 0.0 LAB ABNRBC <0.01 k/uL Absolute nRBC <0.01 LAB DTYP DTYPE Auto Diff Performed By: #### PT, CBCDIF #### [facility] [address] [place], [place] [address] PROGRESS Observed: 12/15/2017 Status: COMPLETED Source: ANMOORE 2:12 PM [facility] REPOSITORY HNO ID: [id number] Author: Zaynab (Michael) Older Service: (none) Author Type: Nurse Practitioner Type: Progress Notes Filed: 12/15/2017 3:01 PM Note Text: CC: HPI Sima Mullen is a 82 year old male who presents today for ER follow-up. Patient presented to [facility] ER on 11/20 with bruising to his abdomen, taking Coumadin for aortic valve replacement. INR week prior was 3.7, dose decreased to 5 mg. CBC, BMP relatively normal. INR 2.5. CT scan abdomen and pelvis showed skin thickening in the subcutaneous region of the abdomen consistent with blood within the tissue but no discrete hematoma. No further work-up or intervention, discharged home. Patient reports bruising is fading, denies any worsening symptoms. Denies abdominal pain. No black/bloody stools, hematuria or new bruising. REVIEW OF SYSTEMS Respiratory: no cough, no wheezing, no shortness of breath, no hemoptysis Cardiovascular: no chest pain, no chest pressure and no palpitations Neurologic: no headaches, no dizziness, no memory loss, no confusion PAST MEDICAL HISTORY Diagnosis Date - Acute myocardial infarction, unspecified site 2003 Myocardial Infarction - Acute, but ill-defined, cerebrovascular disease 2001 h/o right arm and leg paralysis, resolved - Anemia 08/04/2017 - Asthma 12/20/2009 - Atrial fibrillation (HCC) - Benign localized hyperplasia of prostate with urinary obstruction and other lower urinary tract symptoms (LUTS)(600.21) 12/20/2009 - Congestive heart failure (HCC) - CORONARY ATHEROSCLER UNSPEC VESSEL 02/28/2004 4 V CABG at age 69: done at the [facility] Creat 1.1 in 07-27 A1C 6.4% in 07-27 - DISSECTING ABDOM AORTIC ANEURYSM 02/28/2004 Being monitored as of 07-27: seeing Vascular in [place] Hct 43.9% in 07-27 - Diverticulosis of colon (without mention of hemorrhage) - HYPERLIPIDEMIA NEC/NOS 02/28/2004 LDL 78, HDL 35, TG 80 in 07-27 - Mixed hyperlipidemia 1984 Hyperlipidemia - Stroke (HCC) - Tobacco use disorder 08/08/2009 Smoked 1 ppd from about age [age] - Unspecified essential hypertension Essential hypertension - Valvular heart disease 12/20/2009 Mitral valve, Aortic stenosis. PAST SURGICAL HISTORY Procedure Laterality Date - CABG, ARTERY-VEIN, THREE March CABG, three grafts - COLONOSCOP W/ OR W/O BRSH SPEC 11/21/2009 Colonoscopy - PAST SURGICAL HISTORY OF Excision benign tumor-throat - REMOVE TONSILS/ADENOIDS,<12 Y/O Tonsil/adenoidectomy - REMV CATARACT EXTRACAP,INSERT LENS Cataract Extraction with PC IOL - TRANSCATHETER TRANSAPICAL REPLACEMT AORTIC VALVE 08/27/2016 Transapical implantation of #26 Eder S3 valve ALLERGIES No Known Allergies MEDICATIONS albuterol HFA (PROVENTIL HFA) 90 mcg/actuation inhaler Inhale 2 Puffs as instructed every 6 hours as needed. Gilbert-3 Fatty Acids (FISH OIL) 500 mg cap Take by mouth once daily. Methylsulfonylmethane (MSM) 1,000 mg tab Take by mouth. warfarin (COUMADIN) 5 mg tablet 5 mg Tue/Deana/Sat and 7.5 mg other days or as directed doxazosin (CARDURA) 4 mg tablet Take 1 tablet by mouth once daily. aspirin, enteric coated (ASPIR-LOW) 81 mg EC tablet Take 1 tablet by mouth once daily. ascorbic acid, vitamin C, (VITAMIN C) 500 mg tablet Take 500 mg by mouth once daily. CALCIUM CARBONATE (CALCIUM 500 ORAL) Take by mouth once daily. UBIDECARENONE/VITAMIN E MIXED (COQ10 SG 100 ORAL) Take by mouth once daily. metoprolol tartrate, short acting, (LOPRESSOR) 50 mg tablet Take 1 tablet by mouth every 12 hours. senna-docusate (SENNA-S) 8.6-50 mg per tablet Take 1 tablet by mouth twice daily. clopidogrel (PLAVIX) 75 mg tablet Take 1 tablet by mouth once daily. atorvastatin (LIPITOR) 40 mg tablet Take 0.5 tablets by mouth daily at bedtime. For cholesterol. nitroglycerin sublingual 0.4 mg SL tablet Dissolve 1 tablet under the tongue every 5 minutes as needed for Chest Pain. GLUC HCL/CSANA/GLY-AM-GLY,MX/C (IHXSPHTO-LOYNRNBSXZ-SO GLYCN- C ORAL) Take 1 tablet by mouth once daily. acetaminophen (TYLENOL) 325 mg ORAL tablet Take 650 mg by mouth every 6 hours as needed. MULTIVITAMIN ORAL TAB Take one(1) tablet daily. FAMILY HISTORY Problem Relation Age of Onset - Cancer Mother age 56 of (?) cancer - unknown [OTHER] Father age 56, 1 month post-op AAA repair - Heart Daughter age 24 of HOCM Social History Substance Use Topics - Smoking status: Former Smoker Packs/day: 1.00 Years: 20.00 Types: Cigarettes Quit date: 10/19/1969 - Smokeless tobacco: Never Used Comment: quit sometime in the early seven - Alcohol use Yes Comment: 1-2 times a month, maybe PHYSICAL EXAM BP 130/78 Pulse (!) 58 Temp 37.2 ?C (99 ?F) (Temporal Artery) Resp 25 Wt 86.6 kg (191 lb) SpO2 97% BMI 29.04 kg/m2 General Appearance: well appearing, in no acute distress, alert Skin: resolving ecchymosis to lower abdomen, right ribs and right flank to mid back (see image). No swelling or localized fluid collection palpated. Lungs: Lungs clear to auscultation. No wheezing, rhonchi, rales Heart: Irregular rhythm without murmur, gallop, or rubs. No ectopy Abdomen: Abdomen soft, non-tender. Bowel sounds normal. Ext: trace LE edema, good distal pulses ASSESSMENT/PLAN: 1. Abdominal wall hematoma, initial encounter - ICD9: 922.2, ICD10: S30.1XXA (primary diagnosis) Improving, no worsening symptoms and exam benign Check CBC with diff and INR today per patient's PCP, labs ordered but did not have done yet Follow-up in office or go to ER for worsening symptoms 2. Chronic anticoagulation - ICD9: V58.61, ICD10: Z79.01 As above 3. Chronic atrial fibrillation (HCC) - ICD9: 427.31, ICD10: I48.2 As above - WARFARIN 5 MG TABLET - PROTHROMBIN TIME/PT Prescription instructions reviewed with patient as applicable. Potential red flag symptoms discussed with the patient. Reviewed appropriate action plan to take if red flag symptoms occur. Patient agreeable to treatment plan. Zaynab Older, MICHAEL DISCHARGE INSTRUCTION Observed: 12/10/2017 Status: F Source: ROY 3:28 PM [facility] REPOSITORY [facility] Medical Records Department [address] [place] [address] Discharge Instruction 12/10/17 1527 MR#: [id number] Acct: [id number] Name: SIMA MULLEN Rep #: [id number] : 1935 82 From: Diamond Gonzales DO PCP: Polo Mitchell MD Status: REG ER ED Disposition - Plan for ED Patient: Chief Complaint: Abd Pain Instructions: ED Hematoma Referrals: Polo Mitchell MD [Primary Care Provider] - 3-5 Days What to do if you have Problems For any increased pain, shortness of breath, bleeding, nausea or vomiting, chest pain, or any unexpected problems, contact your Primary Care Provider. Call [facility] ([phone]) or report to the closest Emergency Room. Call 911 if necessary. 12/10/17 1528 <Electronically signed by Diamond Gonzales DO> Date Diamond Gonzales DO Cosigner Signature (If Indicated): Date CC: Polo Mitchell MD EMERGENCY DEPARTMENT Observed: 12/10/2017 Status: F Source: ROY SUMMARY 3:27 PM [facility] REPOSITORY [facility] Medical Records Department [address] [place] [address] Emergency Department Summary 12/10/17 1523 MR#: [id number] Acct: [id number] Name: SIMA MULLEN Rep #: [id number] : 1935 82 From: Diamond Gonzales DO PCP: Polo Mitchell MD Status: REG ER - ER Visit Summary Date of Service: 12/10/17 Chief Complaint: [Discoloration to abdomen] History of Present Illness: The patient is a 82 M [resents to the emergency department with complaint of ecchymosis and bruising to his abdomen. Patient states that he is on Coumadin for history of an aortic artificial heart valve. Patient states last week his INR was elevate] to 3.7 and his Coumadin dose was decreased to 5 mg. Patient denies any abdominal pain. Patient denies feeling lightheaded or dizzy. Physical Examination: [HEENT-PERRLA, EOMI. Cranial nerves II through XII grossly intact. TMs clear. Mucous membranes moist. No adenopathy. Cardiovascular-regular rate and rhythm without murmur or ectopy Lungs-clear to auscultation, chest wall stable without crepitus or subcu emphysema Abdomen-normoactive bowel sounds, soft, nontender, no rebound or rigidity, no peritoneal signs. Patient has diffuse ecchymosis and bruising noted to the anterior abdomen into the right flank and right upper posterior chest. Extremities-intact 4, normal range of motion, normal pulses, atraumatic] Test Results: [CBC with differential showed a white count of 6.2, hemoglobin 11, hematocrit 34, platelets 215. Chemistries were unremarkable. INR was 2.5. CT scan of the abdomen and pelvis showed skin thickening in the subcutaneous region of the abdomen consistent with blood within the subcutaneous tissues. No discrete hematoma noted.] Emergency Department Course and Treatment: [Patient had a cyst discussed with his primary care physician Dr. Polo Mitchell will follow up patient in the office next week.] Treatment Plan: [Follow-up with Dr. Mitchell for repeat H AND H and INR.] Disposition: [Discharged to home in stable condition] Impression: [Abdominal wall hematoma Coumadin coagulopathy] This note was generated with [email or web address] dictation software. It may contain incorrect words, spelling, and punctuation that were not noted in review of the chart prior to signing ED Disposition - Plan for ED Patient: Chief Complaint: Abd Pain Referrals: Polo Mitchell MD [Primary Care Provider] - What to do if you have Problems For any increased pain, shortness of breath, bleeding, nausea or vomiting, chest pain, or any unexpected problems, contact your Primary Care Provider. Call [facility] ([phone]) or report to the closest Emergency Room. Call 911 if necessary. 12/10/17 1527 <Electronically signed by Diamond Gonzales DO> Date Remus Ungur DO Cosigner Signature (If Indicated): Date CC: Polo Mitchell MD CBC W/DIFF, AUTOMATED Collected: 12/10/2017 Status: F Source: SUSAN 12:52 PM [facility] RE[facility] TYPE CODE TESTS RESULT OUT OF RANGE REFERENCE UNITS LAB L100.1000 4.4-11.0 K/mm3 Normal WBC 6.2 LAB L100.1200 4.6-6.2 M/mm3 Low RBC 3.74 LAB L100.1300 13.0-16.5 g/dl Low HGB 11.1 LAB L100.1400 40-54 % Low HCT 33.7 LAB L100.1500 80-94 fL Normal MCV 90.1 LAB L100.1600 27.0-32.0 pg Normal MCH 29.7 LAB L100.1700 32-36 g/gl Normal MCHC 32.9 LAB L100.1810 11.6-14.6 % High RDW CV 14.9 LAB L100.1820 35.1-43.9 fl High RDW SD 48.5 LAB L100.1900 150-450 K/mm3 Normal PLT 215 LAB L100.2000 6.2-12.0 fl Normal MPV 9.1 LAB L100.2100 47-70 % High NEUT% 70.6 LAB L100.2200 19-41 % Low LY% 15.3 LAB L100.2300 0-10 % High MONO% 10.4 LAB L100.2400 0-5 % Normal EO% 2.9 LAB L100.2500 0-1 % Normal BASO% 0.3 LAB L100.2550 0.0-0.9 % Normal IM GRAN % 0.500 Result Comment: IG% - Immature Granulocytes (promyelocytes, myelocytes and metamyelocytes) > 1% indicates that a LEFT SHIFT is Present. LAB L100.2620 2.0-7.7 X10 3/uL Normal Absolute Neut 4.4 LAB L100.2720 0.83-4.51 X10 3/ul Normal Absolute Lymph 0.94 Performed By: #### L100.0100 #### [facility] [address] [place], [place], [address] BASIC METABOLIC Collected: 12/10/2017 Status: F Source: SUSAN PROFILE (BMP) 12:52 PM [facility] REPOSITORY TYPE CODE TESTS RESULT OUT OF RANGE REFERENCE UNITS LAB L501.0100 74-106 mg/dL Normal GLU 92 Result Comment: Please note revised GLUCOSE reference range effective 2017. LAB L501.1000 7-18 mg/dL Normal BUN 11 LAB L501.1100 0.70-1.30 mg/dL Low CREAT,SERUM 0.65 Result Comment: The validity of the calculated GFR AND GFRAA in patients over 70 years has not been determined. Clinical correlation is essential. LAB L501.1110 >60 mL/min Normal EST GFR 126 Result Comment: Non- GFR Calc LAB L501.1115 >60 mL/min Normal EST GFR - AA 153 Result Comment: GFR Calc LAB L501.1255 ml/min Normal Estimated CRCL 56.05 LAB L501.1300 10-20 RATIO Normal BUN/CRE 17.0 LAB L501.2200 8.5-10 mg/dL Low .1 CA 7.7 LAB L501.5300 136-14 mmol/L Low 5 NA 133 LAB L501.5600 3.5-5. mmol/L Normal 1 K 4.5 LAB L501.5900 98-107 mmol/L Normal CL 100 LAB L501.6100 21.0-3 mmol/L Normal 2.0 CO2 29.0 LAB L501.6200 5-15 Low GAP 4 Performed By: #### L500.2500 #### [facility] [address] [place], [address] PROTHROMBIN TIME W/INR Collected: 12/10/2017 Status: F Source: SUSAN 12:52 PM [facility] REPOSITORY TYPE CODE TESTS RESULT OUT OF RANGE REFERENCE UNITS LAB L300.4150 11.7-14.9 SECONDS High PROTIME 26.3 LAB L300.4200 Normal INR 2.5 Performed By: #### L300.3900 #### [facility] [address] [facility] [facility], [address] ABDOMEN/PELVIS WITHOUT Observed: 12/10/2017 Status: F Source: SUSAN CONT 12:42 PM [facility] REPOSITORY [facility] Imaging Services [address] [place] [address] Abdomen/Pelvis without Cont MR#: [id number] Acct: [id number] Name: SIMA MULLEN Rep #: [id number] : 1935 M 82 From: Segundo Galvan MD PCP: Polo Mitchell MD Status: PRE ER Study: Abdomen/Pelvis without Cont Date of Exam: 12/10/17 Exam# [id number] Ordering Dr: Diamond Gonzales DO STUDY: CT ABDOMEN AND PELVIS WITHOUT CONTRAST REASON FOR EXAM: Male, 82 years old. Abdominal wall hematoma/bruising. Right upper abdominal and right flank pain. Patient is on Coumadin. RADIATION DOSAGE (If Supplied By Facility): CTDIvol = ( 13.02 ) mGy, DLP = ( 725.19 ) mGycm TECHNIQUE: Transaxial images were obtained from the dome of the diaphragm to the symphysis pubis without oral contrast, and without intravenous contrast. Sagittal and coronal images were reconstructed. Individualized dose optimization techniques were used for this CT. COMPARISON: Comparison is made with prior study dated August 09, 2012. FINDINGS: Small bilateral pleural effusions. There is a stable 5.5 mm noncalcified nodule in the right lower lobe abutting the right hemidiaphragm. This most likely represents a granuloma. Cardiomegaly. Coronary artery calcification. Aortic valve prosthesis. Normal liver. Small gallstone along the dependent portion of the gallbladder lumen. There are multiple benign calcified granulomata of the spleen. Normal pancreas. Normal bilateral adrenal glands. Normal right kidney. Normal left kidney. Normal visualized stomach. Normal small intestine. There are multiple colonic diverticula consistent with diverticulosis. The appendix is visualized and appears normal. There is diffuse atherosclerotic calcification of the abdominal aorta and its major visceral branches. Stable minimal dilatation of the distal abdominal aorta. 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 Normal inferior vena cava. Normal retroperitoneum. The bladder is only partially filled. Mild degree of diffuse bladder wall thickening. There is enlargement of the prostate gland. It measures 4.7 cm x 5.2 cm. Calcifications are seen within it. There is evidence of diffuse subcutaneous congestion with overlying skin thickening. This may represent subcutaneous collection of blood with the patient's history of bruising. There are degenerative changes of the visualized lumbar spine. CT/Abdomen/Pelvis without Cont IMPRESSION: Small bilateral pleural effusions. Diffuse subcutaneous edematous changes as described. With the patient's history of abdominal wall bruising, this may represent subcutaneous blood pooling. Clinical correlation is recommended. Electronically Signed: Segundo Galvan MD at 13:42 EST Tel [phone], Service support , CC: Diamond Mitchell MD Admissions Representative: Signed CNCO Observed: 12/10/2017 Status: COMPLETED Source: ANMOORE 12:00 AM [facility] REPOSITORY Letter Text Sima Mullen [address] [place] [address] 12/10/2017 [facility] #: [id number] Dear , Due to a change in the provider's schedule it has been necessary to reschedule your Appointment. Your original appointment was scheduled for February 02, 2018 at 1:20 PM with Polo Mitchell M.D. Your new appointment is now scheduled on March 10, 2018 at 1:20 PM with Polo Mitchell M.D. If this new appointment is not convenient for you, please contact our office at [phone]. Thank you for choosing the [facility] as your Healthcare Provider . Sincerely, Internal Medicine Appointment Office PROGRESS Observed: 12/03/2017 Status: COMPLETED Source: ANMOORE 1:19 PM [facility] REPOSITORY HNO ID: [id number] Author: Laurence Scott LPN Service: (none) Author Type: (none) Type: Progress Notes Filed: 12/03/2017 1:19 PM Note Text: This note was created using NoteWriter. Subjective Sima Mullen is a 82 year old male. Review of Systems Objective There were no vitals taken for this visit. Physical Exam Assessment and Plan Patient notified of results and provider's instructions. Patient verbalizes understanding. Laurence Sonia DEL T[place]O PROGRESS Observed: 12/02/2017 Status: COMPLETED Source: ANMOORE 4:28 PM [facility] RE[facility] HNO ID: [id number] Author: Polo Mitchell Service: (none) Author Type: Physician Type: Progress Notes Filed: 12/03/2017 1:19 PM Note Text: Decrease Coumadin dose. 5 mg Tue, Deana, Sat, Sun and 7.5 mg on Mon, Wed, Fri. INR in 2 weeks. PROGRESS Observed: 12/02/2017 Status: COMPLETED Source: ANMOORE 3:08 PM [facility] HNO ID: [id number] Author: Lorna Mata RN Service: (none) Author Type: (none) Type: Progress Notes Filed: 12/02/2017 3:12 PM Note Text: patient had inr completed at [facility] patients inr is 3.7 (patients inr ranges is 2.0-3.0) patient is currently taking 5mg Tues,Thurs,Sat and 7.5mg all other days patients last dose change was on 01/14/17 due to a high level of 3.1 (dose at that time was 5mg Tues,Thurs and 7.5mg all other days patient has had no changes in medication and no missed doses and has had a change in diet as patient is drinking 2tablespoons of apple cider vinegar,1tablespoon of honey and 1 cup of water daily Advised patient that they would be contacted regarding medication dose and when to follow up after information is reviewed by provider. After provider review please contact the patient with information and schedule follow up appointment with coumadin clinic. FYI - patient has been scheduled for a 1 week inr follow up on 12/09/17 ALLERGIES ALLERGIES DATE TYPE / CODE NAME / CODE REACTION SEVERITY SOURCE 11/03/2018 Drug No Known Unknown [place] [facility] Allergy/416 Allergies/N71755 [facility] 346198(SNOM 0388(RXNORM) Repository ED CT) 04/12/2004 Drug NO KNOWN [facility] Class/45128 ALLERGIES Main [place] 1003(SNOMED Repository CT) ENCOUNTERS ENCOUNTERS ADMIT/DISCHARGE ACCOUNT ADMITTING ENCOUNTER LOCATION SOURCE NUMBER CLASS 11/05/2018/11/08/19 [id number] Ambulatory [address] [place] Repository 11/03/2018/11/03/19 [id number] Ambulatory BMSBuilding:David Zaragoza [facility] Repository 10/29/2018 [id number] Ambulatory BMSBuilding:David Davis MS.[facility] Repository 10/22/2018/10/25/19 [id number] Ambulatory [address] [place] Repository 10/15/2018/10/18/20 [id number] Ambulatory [address] Repository 10/06/2018/10/06/20 [id number] Emergency Susan [address] ing:ED Repository 09/17/2018/09/20/20 [id number] Ambulatory [address] [place] Repository 09/07/2018/09/07/20 [id number] Ambulatory [address] [place] Repository 09/01/2018/09/02/20 [id number] Ambulatory [address] [place] Repository 09/01/2018/09/02/20 [id number] Ambulatory [place] [facility] [place] Repository 08/05/2018/08/06/20 [id number] Ambulatory [place] [facility] [place] Repository 07/08/2018/07/09/20 [id number] Ambulatory [address] [place] Repository 06/23/2018/06/24/20 [id number] Ambulatory [address] [place] Repository 06/17/2018/06/24/20 [id number] Ambulatory [address] [place] Repository 05/21/2018 [id number] Ambulatory Susan Davis [facility] Hospital ing:LAB Repository 05/20/2018/05/21/20 [id number] Ambulatory [address] [place] Repository 05/17/2018/05/17/20 [id number] Ambulatory BMSBuilding:David Davis 18 [facility] Repository 05/14/2018 [id number] Ambulatory BMSBuilding:David Davis MS.[facility] Repository 04/22/2018/04/23/20 [id number] Ambulatory [address] Repository 04/07/2018/06/21 [id number] Ambulatory [address] [place] Repository 03/23/2018/03/24/20 [id number] Ambulatory [address] [place] Repository 03/23/2018/03/24/20 [id number] Ambulatory [address] [place] Repository 03/05/2018/03/05/20 [id number] Emergency [address] ing:ED Repository 02/23/2018/02/25/20 [id number] Ambulatory [address] [place] Repository 02/09/2018/02/11/20 [id number] Ambulatory [address] [place] Repository 01/26/2018/01/28/20 [id number] Ambulatory [address] [place] Repository 01/21/2018 [id number] Ambulatory [facility] Repository 01/21/2018/01/22/20 [id number] Ambulatory [address] [place] Repository 01/19/2018/01/22/20 [id number] Ambulatory [address] [place] Repository 01/05/2018/01/07/20 [id number] Ambulatory [address] Repository 12/29/2017/12/31/19 [id number] Ambulatory [address] [place] Repository 12/24/2017/12/27/19 [id number] Kailyn, Inpatient [address] ing:PCURoom: Repository QML403Tax: 1 12/24/2017 [id number] Kailyn, Ambulatory BMSBuilding:B Susan Flowers [facility] Repository 12/24/2017 [id number] [place]ail[place], Ambulatory BMSBuilding:David Flowers [facility] Repository 12/24/2017/12/27/19 [id number] Ambulatory BMSBuilding:W [address] Repository 12/24/2017/12/27/19 [id number] Ambulatory BMSBuilding:W [place] Repository 12/24/2017/12/25/19 [id number] Ambulatory [address] Repository 12/24/2017/12/26/19 [id number] Ambulatory [address] Repository 12/15/2017 [id number] Ambulatory [facility] Repository 12/15/2017/12/18/19 [id number] Ambulatory [address] Repository 12/10/2017/12/10/19 [id number] Emergency [place] [address] [place] [address] ing:ED Repository 12/02/2017/12/04/19 [id number] Ambulatory [address] Repository PAYERS PAYERS ENCOUNTER GUARANTOR PAYER SUBSCRIBER SOURCE 11/03/2018 SIMA E Primary SIMA Davis [id number] Insurance:MEDICARE SWEARINGENDOB: [facility] SHIRA DRAPT PART A [facility] [address] [id number] Number: Repository [id number]: 330 [id number] [phone] () Date:2018-10-15 11/03/2018 Secondary SIMA E [place] Insurance:STANDARD SWEARINGENDOB: [facility] [id number] Hospital Number: Repository [id number] Date:4262-23-93[address]AMFJ[address] MÉNDEZ [address]UJ: 11/03/2018 Tertiary NOT GIVENUNK [place] Insurance:SELF PAY [facility] Number: Effective Repository Date:2018-11-03 10/29/2018 SIMA E Primary SIMA E [place] [id number] Insurance:MEDICARE SWEARINGENDOB: [facility] SHIRA DRAPT PART A [facility] [address] [id number] Number: Repository [address]Wzh: 330 [id number] [phone] () Date:2018-10-29 10/29/2018 Secondary SIMA E [place] Insurance:STANDARD SWEARINGENDOB: [facility] [id number] Hospital Number: Repository [id number] Date:3752-26-52HR [address]ETAJACK MÉNDEZ [address]RV: 10/29/2018 Tertiary NOT GIVENUNK [place] Insurance:SELF PAY [facility] Number: Effective Repository Date:2018-10-29 10/06/2018 SIMA E Primary SIMA E Susan [id number] Insurance:MEDICARE SWEARINGENDOB: Community SHIRA DRAPT PART A [facility] [address] [id number] Number: Repository [id number]: 330 [id number] [phone] () Date:2018-10-06 10/06/2018 Secondary SIMA E [place] Insurance:STANDARD SWEARINGENDOB: Community [facility] [id number] Hospital Number: Repository [id number] Date:7699-11-32[address], [place] [address]ZF: 10/06/2018 Tertiary NOT GIVENUNK [place] Insurance:SELF PAY [facility] Number: Effective Repository Date:2018-10-06 05/21/2018 SIMA E Primary SIMA E [place] [id number] Insurance:MEDICARE SWEARINGENDOB: Community SHIRA DRAPT PART A [facility] [address] [id number] [place] Number: Repository [id number]: 330 [id number] [phone] () Date:2018-05-21 05/21/2018 Secondary SIMA E [place] Insurance:STANDARD SWEARINGENDOB: [facility] [id number] Hospital Number: Repository [id number] Date:5798-21-44[address]W [place], [place] [address]AG: 05/21/2018 Tertiary NOT GIVENUNK [place] Insurance:SELF PAY [facility] Number: Effective Repository Date:2018-05-21 05/17/2018 SIMA E Primary SIMA E Susan [id number] Insurance:MEDICARE SWEARINGENDOB: Community SHIRA DRAPT PART A [facility] [address] [id number] Number: Repository [id number]: 330 [id number] [phone] () Date:2017-10-07 05/17/2018 Secondary SIMA E [place] Insurance:STANDARD SWEARINGENDOB: [facility] [id number] Hospital Number: Repository [id number] Date:0611-66-19[address]UYUNEW [place], [place] [address]IR: 05/17/2018 Tertiary NOT GIVENUNK [place] Insurance:SELF PAY [facility] Number: Effective Repository Date:2017-10-07 05/14/2018 Sima E Primary Sima E Susan [id number] Insurance:MEDICARE SwearingenDOB: Community SHIRA DRAPT PART A [facility] [address] [id number] Number: Repository [address]Hkj: 330 [id number] [phone] () Date:2018-05-14 05/14/2018 Secondary Sima E [place] Insurance:STANDARD SwearingenDOB: [facility] [id number] Hospital Number: Repository [id number] Date:5490-34-37[address]AEJNEW [place], [place] [address]QJ: 05/14/2018 Tertiary NOT GIVENUNK Susan Insurance:SELF PAY [facility] Number: Effective Repository Date:2018-05-14 03/05/2018 Sima E Primary Sima E [place] [id number] Insurance:MEDICARE SwearingenDOB: Community SHIRA DRAPT PART A [facility] [address] [id number] Number: Repository [address]Koi: 330 [id number] [phone] () Date:2018-03-05 03/05/2018 Secondary Sima E [place] Insurance:STANDARD SwearingenDOB: [facility] LIFE ACCIDENTPolicy [id number] Hospital Number: Repository [id number] Date:3627-49-29[address]QJNEW [place], [place] [address]AT: 03/05/2018 Tertiary NOT GIVENUNK [place] Insurance:SELF PAY [facility] Number: Effective Repository Date:2018-03-05 12/24/2017 Sima E Primary Sima E [place] [id number] Insurance:MEDICARE SwearingenDOB: Community SHIRA DRAPT PART A [facility] [address] [id number] Number: Repository [address]Liv: 330 [id number] [phone] () Date:2017-12-24 12/24/2017 Secondary Sima E [place] Insurance:STANDARD SwearingenDOB: [facility] [id number] Hospital Number: Repository [id number] Date:3451-46-21[address] [place], [place] [address]KO: 12/24/2017 Tertiary NOT GIVENUNK Susan Insurance:SELF PAY [facility] Number: Effective Repository Date:2017-12-24 12/24/2017 Sima E Primary Sima E Susan [id number] Insurance:MEDICARE SwearingenDOB: Community SHIRA DRAPT PART A [facility] [address] [id number] Number: Repository [address]Yld: 330 [id number] [phone] () Date:2017-12-24 12/24/2017 Secondary Sima E [place] Insurance:STANDARD SwearingenDOB: [facility] [id number] Hospital Number: Repository [id number] Date:4736-89-71[address], [place] [address]HW: 12/24/2017 Tertiary NOT GIVENUNK Susan Insurance:SELF PAY [facility] Number: Effective Repository Date:2017-12-24 12/24/2017 Sima E Primary Sima E [place] [id number] Insurance:MEDICARE SwearingenDOB: Community SHIRA DRAPT PART A [facility] [address] [id number] Number: Repository [address]Dph: 330 [id number] [phone] () Date:2017-12-24 12/24/2017 Secondary Sima E [place] Insurance:STANDARD SwearingenDOB: [facility] [id number] Hospital Number: Repository [id number] Date:6800-19-60[address], [place] [address]VH: 12/24/2017 Tertiary NOT GIVENUNK [place] Insurance:SELF PAY [facility] Number: Effective Repository Date:2017-12-24 12/24/2017 Sima E Primary Sima E [place] [id number] Insurance:MEDICARE SwearingenDOB: Community SHIRA DRAPT PART A [facility] [address] [id number] Number: Repository [id number]: 330 [id number] [phone] () Date:2017-12-24 12/24/2017 Secondary Sima E [place] Insurance:STANDARD SwearingenDOB: [facility] [id number] Hospital Number: Repository [id number] Date:8672-24-75[address], [place] [address]ND: 12/24/2017 Tertiary NOT GIVENUNK [place] Insurance:SELF PAY [facility] Number: Effective Repository Date:2017-12-24 12/24/2017 Sima E Primary Sima E [place] [id number] Insurance:MEDICARE SwearingenDOB: Community SHIRA DRAPT PART A [facility] [address] [id number] [place] Number: Repository [address]Tnz: 330 [id number] [phone] () Date:2017-12-24 12/24/2017 Secondary Sima E [place] Insurance:STANDARD SwearingenDOB: [facility] [id number] Hospital Number: Repository [id number] Date:3658-32-60[address]JLVNEW [place], [place] [address]EK: 12/24/2017 Tertiary NOT GIVENUNK Susan Insurance:SELF PAY [facility] Number: Effective Repository Date:2017-12-24 12/10/2017 Sima E Primary Sima E [place] [id number] Insurance:MEDICARE SwearingenDOB: Community SHIRA DRAPT PART A [facility] [address] [id number] Number: Repository [id number]: 330 [id number] [phone] (HP) Date:2017-12-10 12/10/2017 Secondary Sima E [place] Insurance:STANDARD SwearingenDOB: [facility] LIFE ACCIDENTPolicy [id number] Hospital Number: Repository [id number] Date:9954-20-01[address] JACK RUIZ [address]XB: 12/10/2017 Tertiary NOT GIVENALONDRA [place] Insurance:SELF PAY [facility] Effective Repository Date:2017-12-10
== END 2018-10-06 14:03 | disposition home or self-care (01) ==
LOC: ED 13:45
PROVIDERS: Emergency Provider Emergency Medicine; Family Provider Internal Medicine; PCP Internal Medicine
DX: B30.9 Viral conjunctivitis, unspecified (principal); I25.10 Atherosclerotic heart disease of native coronary artery without angina pectoris; I48.91 Unspecified atrial fibrillation; I25.2 Old myocardial infarction; Z86.73 Personal history of transient ischemic attack (TIA), and cerebral infarction without residual deficits; Z95.1 Presence of aortocoronary bypass graft; Z79.82 Long term (current) use of aspirin; Z79.01 Long term (current) use of anticoagulants; Z79.02 Long term (current) use of antithrombotics/antiplatelets; Z79.899 Other long term (current) drug therapy
CPT/HCPCS: 99284

== ENCOUNTER → 2018-11-25 14:51 | Outpatient (CLI) | payer MEDICARE, OTHER, SELFPAY ==
[2018-11-03 10:37] VITALS: BMI 25.0
--- NOTE | 2018-11-25 14:53 | ECHOD_ITS ---
Reason For Study: VALVE REPLACEMENT EVAL Procedure This was a 2D Doppler, Color Flow transthoracic echocardiogram. The exam was of adequate technical quality. Exam performed in department. Left Ventricle Normal LV size. Mild segmental systolic dysfunction (see wall motion). The estimated ejection fraction is 50 %. Diastolic function is indeterminate. Posterior-Basal: Akinetic. Infero-Basal: Akinetic. Mid-Posterior: Hypokinetic. Mid-Inferior: Hypokinetic. Mid-inferoseptal : Hypokinetic. Mid-anteroseptal : Hypokinetic. Septal Closter : Hypokinetic. Right Ventricle Mildly dilated right ventricle. Normal systolic function. Atria The left atrium is severely enlarged. The right atrium is severely enlarged. No doppler evidence for ASD. Mitral Valve There is mild to moderate mitral annular calcification. Extension of the mitral annular calcification on to the mitral valve leaflet. Mild diffuse mitral valve thickening. Mild (1+) mitral valve insufficiency. Tricuspid Valve Mild diffuse thickening of the tricuspid valve. Poor coaptation of the tricuspid valve apparatus. Moderate (2+) tricuspid valve insufficiency. Right ventricular systolic pressure estimated to be 53 mmHg. Aortic Valve Stable appearing bioprosthetic aortic valve apparatus. Pulmonic Valve The pulmonic valve is not well visualized. Mild (1+) pulmonic valve insufficiency. Great Vessels Normal sized aortic root. Pericardium/Pleural No pericardial effusion. MMode/2D Measurements & Calculations LVIDd: 4.6 cm IVSd: 1.2 cm LVOT diam: 2.0 cm LVIDs: 3.1 cm LVPWd: 1.2 cm LVOT area: 3.1 cm2 RVDd: 4.2 cm FS: 33.9 % Ao root diam: 3.1 cm LAV(MOD-bp): 157.6 ml LVAd ap4: 26.5 cm2 LAV(MOD-bp) Indexed: 84.8 ml/m2 EDV(MOD-sp4): 82.9 ml LAV(MOD-sp2): 173.9 ml EDV(sp4-el): 86.7 ml LAV(MOD-sp4): 133.0 ml LVAs ap4: 16.5 cm2 ESV(MOD-sp4): 36.3 ml ESV(sp4-el): 38.0 ml EF(MOD-sp4): 56.2 % EF(sp4-el): 56.2 % SV(MOD-sp4): 46.6 ml SV(sp4-el): 48.8 ml LA A4 area: 36.7 cm2 RA A4 area: 34.3 cm2 Doppler Measurements & Calculations MV E max machelle: 130.5 cm/sec Ao V2 max: 236.5 cm/sec LV V1 max: 85.8 cm/sec Ao max P.4 mmHg LV V1 max P.0 mmHg Ao V2 mean: 159.7 cm/sec LV V1 mean P.7 mmHg Ao mean P.8 mmHg LV V1 mean: 63.0 cm/sec Ao V2 VTI: 49.7 cm LV V1 VTI: 20.3 cm DALE(I,D): 1.3 cm2 DALE(V,D): 1.1 cm2 SV(LVOT): 62.5 ml PA V2 max: 93.3 cm/sec TR max machelle: 354.5 cm/sec TR max P.3 mmHg Interpretation Summary Mild segmental systolic dysfunction (see wall motion). The estimated ejection fraction is 50 %. Mildly dilated right ventricle. The left atrium is severely enlarged. The right atrium is severely enlarged. There is mild to moderate mitral annular calcification. Extension of the mitral annular calcification on to the mitral valve leaflet. Mild diffuse mitral valve thickening. Mild (1+) mitral valve insufficiency. Mild diffuse thickening of the tricuspid valve. Poor coaptation of the tricuspid valve apparatus. Moderate (2+) tricuspid valve insufficiency. Stable appearing bioprosthetic aortic valve apparatus. Mild (1+) pulmonic valve insufficiency. Right ventricular systolic pressure estimated to be 53 mmHg. Diastolic function is indeterminate. 2D echocardiographic images demonstrate a mobile echodenisty in the right atrium c/w a [employer] vs. a prominent Eustachian Valve. Ordering Physician: Wil Olivares Referring Physician: YANIRA FALCON Performed By: Kae Vazquez RDCS
--- NOTE | 2018-11-25 15:52 | CT_ITS ---
PROCEDURE: CTA OF THE ABDOMENWITH IV CONTRAST REASON FOR EXAM: AAA, dissection Patient oriented dose modulation technique utilized. TECHNIQUE: Axial CT angiography multi-detector data acquisition was obtained from the lung bases to the iliac crests following intravenous administration of 100 ml of Isovue 300 contrast. Axial images and MIP images were reconstructed from the axial data set. Post-processing of the angiographic images was performed, with multiplanar reformation and 3D reconstruction. TECHNICAL QUALITY: Good COMPARISON: 09/12/2013 CT. FINDINGS: ABDOMINAL AORTA: There is a dissection that involves the proximal infrarenal abdominal aorta, just below the right renal artery. The false lumen is thrombosed with the dissection extending into the right common and external iliac arteries (the distal extent is not seen on this study). On the prior study, the false lumen was partially patent. The true lumen opacifies normally with circumferential atherosclerosis, similar since the prior study. The size of the false lumen has decreased with AP diameter measuring 8.6 mm (previously measured 14.5 mm). CELIAC AND SUPERIOR MESENTERIC ARTERIES: Atherosclerosis with only mild degree of stenosis. INFERIOR MESENTERIC ARTERY: Patent RIGHT RENAL ARTERY(ARTERIES): Atherosclerosis with less than 50% stenosis of all visible right renal arteries. LEFT RENAL ARTERY(ARTERIES): Moderate atherosclerosis of the left renal artery causing approximately 50% luminal stenosis., Similar since the prior study. RIGHT COMMON ILIAC ARTERY: Atherosclerosis without significant narrowing. RIGHT EXTERNAL ILIAC ARTERY: Atherosclerosis without significant narrowing. RIGHT INTERNAL ILIAC ARTERY: Atherosclerosis without significant narrowing. LEFT COMMON ILIAC ARTERY: Atherosclerosis without significant narrowing. LEFT EXTERNAL ILIAC ARTERY: Atherosclerosis with moderate to severe stenosis of the proximal and mid external iliac artery, severely encroaching 75% but similar since the prior study. LEFT INTERNAL ILIAC ARTERY: Atherosclerosis without significant narrowing. In the left lower lobe, there is a subpleural nodular density with reticulation extending towards the left hilum adjusting rounded atelectasis. There is a small left pleural effusion. The left pleural effusion is decreased in size since the prior study. There is reflux of contrast into the IVC compatible with right heart dysfunction. The liver, spleen, pancreas and gallbladder (except for gallstone) are unremarkable. The adrenal glands are focally enlarged. Bilateral renal cysts are stable since the prior study. Stable degenerative changes of the lumbar spine. CT/CTA Abdomen W/WO Contrast IMPRESSION: 1. 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 2. Atherosclerosis. 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 3. Moderate left renal artery stenosis. 4. Stable renal cysts. 5. Gallstone. Electronically Signed: Regulo Angel MD at 19:42 EST , Service support ,
[2018-11-25 16:06] LABS: CREATININE FINGERSTICK 1.2 mg/dL (0.70-1.30); EGFR FINGERSTICK > 60.0000 mL/min (>60)
== END ==
PROVIDERS: Family Provider Internal Medicine; PCP Internal Medicine; Referring Provider Internal Medicine Cardiovascular Disease; Visit Provider Internal Medicine Cardiovascular Disease
DX: I50.33 Acute on chronic diastolic (congestive) heart failure (principal); I71.4 Abdominal aortic aneurysm, without rupture; Z95.3 Presence of xenogenic heart valve
CPT/HCPCS: 74175; 93306; Q9967

== ENCOUNTER → 2018-12-28 17:12 | Outpatient (CLI) | payer MEDICARE, OTHER, SELFPAY ==
[2018-11-03 10:37] VITALS: BMI 25.0
[2018-12-28 17:44] LABS: International Normalized Ratio 2.4; Prothrombin Time (Protime)PT. 26.4 SECONDS (11.7-14.9)
== END ==
PROVIDERS: Family Provider Internal Medicine; PCP Internal Medicine; Referring Provider Internal Medicine; Visit Provider Internal Medicine
DX: I48.91 Unspecified atrial fibrillation (principal)
CPT/HCPCS: 85610